=== PATIENT | female | born 1995 | race Caucasian/White ===

== ENCOUNTER 2018-06-05 21:25 | Outpatient (CLI) | payer OTHER, SELFPAY ==
[2018-06-05 22:58] VITALS: BMI 37.3
[2018-06-05 23:20] LABS: ROM Internal Control Test YES-OK TO RESULT pt. (Internal QC)
[2018-06-05 23:21] LABS: ROM Patient Test Negative (Negative)
[2018-06-05 23:49] LABS: Mucous, Urine 0 SEEN /hpf (<or=2+)
[2018-06-06] LABS: Color, Urine Yellow (Yellow); Glucose, Dipstick Normal (Normal); Ketone-Dipstick Negative (Negative); Leukocyte Esterase-Dipstick 100 /ul (Negative); Nitrite-Dipstick Negative (Negative); Occult Blood-Urine Negative /ul (Negative); Protein-Dipstick Negative (Negative); Specific Gravity, Urine 1.015 (1.002-1.030); Urine Bilirubin Dipstick Negative (Negative); Urine Clarity Clear (Clear); Urine Urobilinogen Normal (Normal)
[2018-06-06 00:07] LABS: Squamous Epithelial Cells - UA 0-5 SEEN /hpf (5-10)
[2018-06-06 00:08] LABS: Bacteria 1+ /hpf (None Seen); Red Blood Cells-Urine 0 SEEN /hpf (0-5); White Blood Cells 5-10 SEEN /hpf (0-5)
--- NOTE | 2018-06-06 08:06 | OB.TRI.NOTE ---
History of Present Illness Date of Service: 06/05/18 Was patient seen by the physician?: No Reason For Visit: R/O LABOR Date of Service: 06/05/18 Final CHRISTOPHE: 06/30/18 Gestational age: 36 Weeks and 4 Days Allergies nystatin Allergy (Verified 06/05/18 23:13) Rash NST - FHR Rate Baby A Baseline: 125 Variability:: Moderate Accelerations:: 15 x 15 Decelerations:: None NST Reactive:: Yes FHR Category:: Category I Uterine Activity:: irregular Impression/Plan 22yo @ 36+ wks, not in labor rom plus- negative nst reactive dc home
== END 2018-06-06 00:35 | disposition home or self-care (01) ==
LOC: WPOUT 22:49 → WP 22:50
PROVIDERS: Visit Provider Obstetrics & Gynecology
DX: Z34.93 Encounter for supervision of normal pregnancy, unspecified, third trimester (principal); Z3A.36 36 weeks gestation of pregnancy
CPT/HCPCS: 59025; 59050; 81001; 84112; 99218; G0378

== ENCOUNTER 2018-07-07 19:00 | Inpatient (IN) | payer OTHER, SELFPAY ==
[2018-07-07 19:33] VITALS: BMI 37.5
--- NOTE | 2018-07-07 20:44 | PCM.HP.OB ---
- Problem List (1) Anemia affecting Status: Acute Qualifiers: Trimester: third trimester Qualified Code(s): O99.013 - Anemia complicating , third trimester History Date of Admission: 07/07/18 Final CHRISTOPHE: 06/30/18 Final CHRISTOPHE Source: US <20 weeks Gestational age: 41 Weeks and 0 Days History of this : This is a 22 year-old, G [1], P [0], at 41 weeks gestational age by 1st trimester ultrasound, presenting to L+D for postdates IOL. Patient reports possible beginning of labor yesterday at 6pm; ctx q 10-12 minutes apart and lasting 30 seconds long. Patient denies VB, LOF or DFM. Allergies nystatin Allergy (Mild, Verified 07/07/18 19:34) Rash Home Medications: Home Medications Ferrous Sulfate [Iron] 650 mg PO DAILY 07/07/18 Vits [Prenatabs FA ] 1 tab PO DAILY MDD one 07/07/18 Smoking Status: Never smoker Alcohol: None Number of Fetus(es): 1 Heart Tracing: Baseline 120, moderate variability, + accels, no decels TOCO Analysis: Ctx q 10-15 minutes, irregular History Past Pregnancies: Past Pregnancies Delivery Date Name GA/Weeks Outcome Route Weight Gender Labor Length Anesthesia Delivery Location Provider FOB Labs: O+, Abs Neg, Rubella Immune, HIV NR, HepBsAg Neg, Syphilis Neg, H/H = 10.4/33.2 -->12/37.1, 1 hour = 83 ,GBS Negative, Urine Tox = Neg, Urine culture = Neg, GC/CT = NEg/Neg Expected Delivery Method: Spontaneous Vaginal Describe any other labor & delivery plans:: Epidural desired Number of Visits: 16 Review of Systems Constitutional: Denies: Chills, Fever, Weight Change HEENT: Denies: Head Aches, Sinus Congestion, Sinus Drainage Cardiovascular: Denies: Chest Pain, Palpitations Respiratory: Denies: Cough, Shortness of breath at rest, Sputum production Gastrointestinal: Denies: Abdominal Pain, Nausea, Vomiting Genitourinary: Denies: Dysuria Musculoskeletal: Denies: Joint Pain, Joint Tenderness Skin: Denies: Rash, Wounds Neurological: Denies: Numbness, Tingling, Focal weakness Psychiatric: Denies: Anxiety, Depression, Homicidal Ideations, Suicidal Ideations Hematologic/ Lymphatic: Denies: Easy Bruising, Easy Bleeding Physical Exam Vitals: See nursing notes for vital signs General: Alert, Oriented x3, No apparent distress HEENT: Atraumatic, Normocephalic. Negative for: Thyromegaly, Lymphadenopathy Cardiovascular: Regular rate, Regular Rhythm Abdomen: Non Tender, Gravid, Appropriate for Gestational Age Neurological: Deep Tendon Reflexes 2+/4 and Symmetrical, Neuro grossly intact WEB ASSISTANT: Normal external genitalia. Negative for: Vulvar lesions Estimated gestational size: Appropriate for gestational size Presentation: Cephalic Cervix Dilation (cm): 3 Station: -2 Effacement (%): 60 Assessment/Plan All Active Problems Anemia affecting (Acute) This is a 22 year-old, G [1], P [0], at 41 weeks gestational age, IOL for Postdates, Category I FHT. P: 1) Admit patient - start IV heplock. Draw CBC, T+S. 2) As patient may be in early labor at this time, will do expectant labor management 3) If contractions space out or patient not in labor by morning, anticipate starting IV pitocin for labor induction 4) Dr. Bauer notified of admission and plan of care. Yadira Sue APRN-[facility]
[2018-07-07] MEDS: Lactated Ringers 1,000 ML 50 ML IV (20:50)
--- NOTE | 2018-07-07 20:55 | HP.PCM_ITS ---
- Problem List (1) Anemia affecting Status: Acute Qualifiers: Trimester: third trimester Qualified Code(s): O99.013 - Anemia complicating , third trimester History Date of Admission: 07/07/18 Final CHRISTOPHE: 06/30/18 Final CHRISTOPHE Source: US <20 weeks Gestational age: 41 Weeks and 0 Days History of this : This is a 22 year-old, G [1], P [0], at 41 weeks gestational age by 1st trimester ultrasound, presenting to L+D for postdates IOL. Patient reports possible beginning of labor yesterday at 6pm; ctx q 10-12 minutes apart and lasting 30 seconds long. Patient denies VB, LOF or DFM. Allergies nystatin Allergy (Mild, Verified 07/07/18 19:34) Rash Home Medications: Home Medications Ferrous Sulfate [Iron] 650 mg PO DAILY 07/07/18 Vits [Prenatabs FA ] 1 tab PO DAILY MDD one 07/07/18 Smoking Status: Never smoker Alcohol: None Number of Fetus(es): 1 Heart Tracing: Baseline 120, moderate variability, + accels, no decels TOCO Analysis: Ctx q 10-15 minutes, irregular History Past Pregnancies: Past Pregnancies Delivery Date Name GA/Weeks Outcome Route Weight Gender Labor Length Anesthesia Delivery Location Provider FOB Labs: O+, Abs Neg, Rubella Immune, HIV NR, HepBsAg Neg, Syphilis Neg, H/H = 10.4/ 33.2 -->12/37.1, 1 hour = 83 ,GBS Negative, Urine Tox = Neg, Urine culture = Neg , GC/CT = NEg/Neg Expected Delivery Method: Spontaneous Vaginal Describe any other labor & delivery plans:: Epidural desired Number of Visits: 16 Review of Systems Constitutional: Denies: Chills, Fever, Weight Change HEENT: Denies: Head Aches, Sinus Congestion, Sinus Drainage Cardiovascular: Denies: Chest Pain, Palpitations Respiratory: Denies: Cough, Shortness of breath at rest, Sputum production Gastrointestinal: Denies: Abdominal Pain, Nausea, Vomiting Genitourinary: Denies: Dysuria Musculoskeletal: Denies: Joint Pain, Joint Tenderness Skin: Denies: Rash, Wounds Neurological: Denies: Numbness, Tingling, Focal weakness Psychiatric: Denies: Anxiety, Depression, Homicidal Ideations, Suicidal Ideations Hematologic/ Lymphatic: Denies: Easy Bruising, Easy Bleeding Physical Exam Vitals: See nursing notes for vital signs General: Alert, Oriented x3, No apparent distress HEENT: Atraumatic, Normocephalic. Negative for: Thyromegaly, Lymphadenopathy Cardiovascular: Regular rate, Regular Rhythm Abdomen: Non Tender, Gravid, Appropriate for Gestational Age Neurological: Deep Tendon Reflexes 2+/4 and Symmetrical, Neuro grossly intact MULTIPLE SCLEROSIS NURSE: Normal external genitalia. Negative for: Vulvar lesions Estimated gestational size: Appropriate for gestational size Presentation: Cephalic Cervix Dilation (cm): 3 Station: -2 Effacement (%): 60 Assessment/Plan All Active Problems Anemia affecting (Acute) This is a 22 year-old, G [1], P [0], at 41 weeks gestational age, IOL for Postdates, Category I FHT. P: 1) Admit patient - start IV heplock. Draw CBC, T+S. 2) As patient may be in early labor at this time, will do expectant labor management 3) If contractions space out or patient not in labor by morning, anticipate starting IV pitocin for labor induction 4) Dr. Bauer notified of admission and plan of care. Yadira Sue APRN-[facility]
[2018-07-07 21:25] LABS: Hematocrit 35.3 % (37-47); Hemoglobin 11.7 g/dl (12.0-15.0); Mean Corp Hgb Conc 33.1 g/gl (32-36); Mean Corpuscular Hgb 30.1 pg (27.0-32.0); Mean Corpuscular Volume 90.7 fL (81-99); Mean Platelet Vol. 11.2 fl (6.2-12.0); Platelet Count 197 K/mm3 (150-450); RBC Distribution Width CV 13.4 % (11.6-14.6); Red Blood Count 3.89 M/mm3 (4.2-5.4); White Blood Count 11.5 K/mm3 (4.4-11.0)
[2018-07-07 21:26] LABS: Scan Indicated on CBC? Y/N NO
[2018-07-07] MEDS: Nalbuphine 10 MG/ML Ampul IV (23:02)
[2018-07-08] VITALS (18 sets, daily range): BP systolic 106–125; BP diastolic 52–82; PULSE 61–91; RESP 16–20; TEMP 36.3–36.9; O2SAT 96–100
[2018-07-08] MEDS: Lactated Ringers 1,000 ML 50 ML IV ×3 (01:00→08:40)
[2018-07-08] MEDS: fentaNYL-bupivacaine (epidural) 100 ML BAG EPIDURAL ×3 (01:40→12:06)
[2018-07-08] MEDS: 0.9% Saline Lock 10 ML Syringe IV (02:43)
[2018-07-08] MEDS: Ondansetron 4 MG/2 ML Vial IV (02:43)
[2018-07-08] MEDS: Acetaminophen 325 MG Tablet PO ×2 (03:24→11:19)
[2018-07-08] MEDS: Oxytocin 30 units/NS 500 ml 30 UNITS/500 ML IV.SOLN IV (09:01)
--- NOTE | 2018-07-08 09:02 | PCM.PN.OB ---
Patient Problems: Active and Suspected Problems Anemia affecting (Acute) Subjective: [age] year-old female had intense discomfort to the point where she was unable to rest. She received an epidural over night. Patient reports that she is comfortable and has been able to rest. Nursing staff requested cervical reassessment and placement of internal monitors. Objective: tracing has baseline 120 with moderate variability and accelerations present with rare variable dec at fadumo 90. Internal monitor shows patient has irregular contractions every 3-7 minutes, 50 MVU. SVE = 6/80/-2, AROM for scant clear fluid. - Physical Exam Weight: 239 lb 10.279 oz Body Mass Index (BMI) 37.5 Intake and Output for Last 24 Hours 07/06/18 07/07/18 07/08/18 23:59 23:59 23:59 Intake Total 1190 / 1190 Output Total 800 / 800 Balance 390 / 390 Laboratory Tests Past 24 Hrs 07/07/18 07/07/18 20:50 20:50 WBC 11.5 H RBC 3.89 L Hgb 11.7 L Hct 35.3 L MCV 90.7 MCH 30.1 MCHC 33.1 RDW 13.4 RDW Differential 44.0 H Plt Count 197 MPV 11.2 Blood Type O POSITIVE Antibody Screen NEGATIVE Medical Necessity - Tobacco Use Smoking Status: Never smoker Assessment/Plan All Active Problems Anemia affecting (Acute) Assessment: 22 year-old at 41+1 weeks in active labor, Category II tracing. Inadequate contractions. Plan: Start IV pitocin per protocol for labor augmentation. Encourage position changes and PO hydration. Reassess cervix PRN with changes to maternal or status.
[2018-07-08] MEDS: Amnioinfusion- 0.9% NS 1,000 ML IV.SOLN. INTRA-UTER (10:04)
--- NOTE | 2018-07-08 10:21 | PCM.PN.BLA ---
Progress Note Addendum: Repetitive variable decels noted during contractions, decision made to start amnioinfusion at this time. Bolus rate of 300ml/hr over 30 minutes with maintenance rate of 100ml/hr. Cat II FHT with mild variable decels noted currently, ctx q 2-4 minutes, 180 MVU. SVE deferred. Will continue to monitor patient at this time. Yadira ELI
--- NOTE | 2018-07-08 13:08 | PCM.PN.BLA ---
Progress Note Addendum: prolonged decel with fadumo to 70-80s x 2 minutes noted, SVE done and patient found to be 8/90/-1 to 0 station. Slow recovery to baseline, Dr. Bauer contacted to come to room on standby. REview of tracing done with Dr. Bauer, decision for LTCS made. Risks reviewed with patient - transfer of care to medical management for LTCS. Yadira ELI
[2018-07-08] MEDS: Sodium Citrate/Citric Acid 30 ML UDC PO (13:10)
[2018-07-08] MEDS: Cefazolin 2 GM in 0.9% Normal Saline 100 ML IV (13:10)
[2018-07-08] MEDS: Oxytocin 30 units/NS 500 ml 30 UNITS/500 ML IV.SOLN 167 UNITS IV (13:36)
--- NOTE | 2018-07-08 14:48 | PCM.PN.BLA ---
Progress Note Called by core measures abstractor after prolonged deceleration. FHT prior to arriving with deceleration to 90 bpm for about 10 min. At bedside. Pitocin off. Position changes being performed. Cvx 8-9/80/-2. FHT had returned to a normal baseline followed by decelerations to 70 bpm. Reviewed risks and benefits of a PLTCS with patient for intolerance to labor. Patient agreeable to a section. Consent obtained and patient moved back to OR.
--- NOTE | 2018-07-08 14:52 | PCM.OP.BLANK ---
Problem List (1) intolerance to labor, delivered, current hospitalization Status: Acute Operative Report Date of Procedure: 07/08/18 Preoperative diagnosis: 1 term intrauterine , 2 intolerance to labor Postoperative diagnosis: as above Procedure performed: primary low transverse section Via Pfannenstiel incision Anesthesia: epidural Estimated blood loss: 700 cc Urine output: 300 cc of clear yellow urine Complications: none Findings: male infant in cephalic presentation. Normal uterus, tubes, and ovaries Indications the patient is a 22-year-old who presented at 41 weeks and 0 days gestation in active labor. She was having occasional variable decelerations throughout labor, but making progress. Internal monitors were placed and amnioinfusion was started. She progressed to 8-9 cm. The heart tracing then began showing recurrent prolonged decelerations. Risks, benefits, and alternatives of a for intolerance to labor was discussed with the patient. The patient was agreeable to a section. Procedure note: the patient was taken to the operating room where epidural anesthesia was found to be adequate. The patient was prepped and draped in the usual sterile fashion in dorsal supine position with a leftward tilt. Pfannenstiel skin incision was made with the scalpel and carried through to the underlying layer fascia using the Bovie. The fascia was incised in the midline and extended laterally using Chris scissors. Raulito clamps were used to elevate the superior aspect of the fascial incision, and the underlying rectus muscles were dissected off bluntly and using Chris scissors, as well as the Bovie. Attention was then turned to the inferior aspect of the fascial incision, which in similar fashion was grasped with Raulito clamps and elevated. Then the underlying rectus muscles were dissected off bluntly and using Chris scissors. The rectus muscles were in the midline. The peritoneum was identified and entered using Metzenbaum scissors. The incision was extended superiorly and inferiorly with good visualization of the bladder. The bladder blade was inserted the lower uterine segment was incised in a transverse fashion using a scalpel and extended bluntly. The was noted to be in vertex position and delivered without difficulty. The cord was clamped and cut after 60 seconds and the infant was handed off. The placenta was delivered with manual extraction and intact. The uterus was exteriorized and cleared of all clot and debris. The uterine incision was repaired in 2 layers using Vicryl. Hemostasis was noted. The uterus was then placed back in the abdomen. Hemostasis was again noted, and Arrista was placed over the uterine incision. The peritoneum was reapproximated in the midline using Vicryl. The fascia was closed with Vicryl. The subcutaneous layer was closed with Vicryl. The skin was closed in subcuticular fashion. Sponge, lap, instrument, needle counts were correct ?2. The patient was stable at the completion of the procedure and was taken to the recovery room in stable condition.
--- NOTE | 2018-07-08 15:05 | NURSING ---
small clot noted with fundal massage
[2018-07-08] MEDS: Ketorolac 30 MG/ML Syringe IV (18:18)
[2018-07-08] MEDS: Lactated Ringers 1,000 ML 100 ML IV (22:00)
[2018-07-09] VITALS (11 sets, daily range): BP systolic 109–132; BP diastolic 50–72; PULSE 68–99; RESP 16–18; TEMP 36.6–37.2; O2SAT 95–100
[2018-07-09] MEDS: Ketorolac 30 MG/ML Syringe IV ×5 (00:35→23:55)
[2018-07-09] MEDS: Lactated Ringers 1,000 ML 100 ML IV (06:19)
[2018-07-09 07:05] LABS: Hematocrit 32.2 % (37-47); Hemoglobin 10.7 g/dl (12.0-15.0); Mean Corp Hgb Conc 33.2 g/gl (32-36); Mean Corpuscular Hgb 30.8 pg (27.0-32.0); Mean Corpuscular Volume 92.8 fL (81-99); Mean Platelet Vol. 11.8 fl (6.2-12.0); Platelet Count 195 K/mm3 (150-450); RBC Distribution Width CV 13.1 % (11.6-14.6); RBC Distribution Width SD 43.3 fl (35.1-43.9); Red Blood Count 3.47 M/mm3 (4.2-5.4); White Blood Count 18.8 K/mm3 (4.4-11.0)
[2018-07-09 07:09] LABS: Scan Indicated on CBC? Y/N NO
--- NOTE | 2018-07-09 10:42 | PCM.PN.OB ---
Patient Problems: Active and Suspected Problems Anemia affecting (Acute) intolerance to labor, delivered, current hospitalization (Acute) Subjective: [age] year-old female LTCS post-op day 1. Patient was awake and attending to baby. Patient did not have any complaints or concerns. Minimal incision pain. Able to eat full breakfast w/o n/v. Patient able to pass gas; no signs of constipation. Objective: A+Ox3. NAD. Incision site was inspected; no signs of infection, discoloration, discharge, or foul odor. Minimal abdominal tenderness. Urinary elena catheter to be removed today. Breast inspection deferred- patient is formula feeding. - Physical Exam General: Alert, Oriented x3, Cooperative, No apparent distress Abdomen: Soft, Non Tender, Non-Distended Neurological: Neuro grossly intact Psych/Mental Status: Normal Affect Vital Signs Temp Pulse Resp BP Pulse Ox 98.3 F 96 16 109/62 98 07/09/18 08:15 07/09/18 09:57 07/09/18 09:57 07/09/18 08:15 07/09/18 09:57 Oxygen Delivery Method Room Air Weight: 239 lb 10.279 oz Body Mass Index (BMI) 37.5 Intake and Output for Last 24 Hours 07/07/18 07/08/18 07/09/18 23:59 23:59 23:59 Intake Total 6245 / 6245 1740 / 1740 Output Total 4200 / 4200 2850 / 2850 Balance 2045 / 2045 -1110 / -1110 Laboratory Tests Past 24 Hrs 07/09/18 06:25 WBC 18.8 H RBC 3.47 L Hgb 10.7 L Hct 32.2 L MCV 92.8 MCH 30.8 MCHC 33.2 RDW 13.1 RDW Differential 43.3 Plt Count 195 MPV 11.8 Medical Necessity - Tobacco Use Smoking Status: Never smoker Assessment/Plan All Active Problems Anemia affecting (Acute) intolerance to labor, delivered, current hospitalization (Acute) Assessment: [age] year-old post-op day 1. Normal post- course. Plan: 1) Continue post- orders 2) Expected to be discharged on 07/11/18
[2018-07-09] MEDS: 0.9% Saline Lock 10 ML Syringe IV ×4 (13:03→23:55)
[2018-07-10 02:20] VITALS: BP 125/70; PULSE 66; RESP 16; TEMP 36.6; O2SAT 95
[2018-07-10] MEDS: Ketorolac 30 MG/ML Syringe IV ×2 (06:24→12:45)
[2018-07-10] MEDS: 0.9% Saline Lock 10 ML Syringe IV ×2 (06:25→12:45)
[2018-07-10] MEDS: Acetaminophen 500 MG Tablet 1000 MG PO (06:29)
[2018-07-10 08:00] VITALS: BP 126/71; PULSE 82; RESP 18; TEMP 36.6; O2SAT 97
--- NOTE | 2018-07-10 08:00 | PCM.PN.OB ---
Patient Problems: Active and Suspected Problems Anemia affecting (Acute) intolerance to labor, delivered, current hospitalization (Acute) Subjective: Patient doing well today. Without any complaints. Has been ambulating throughout the halls without any difficulties. Spontaneously voiding without any difficulty. Normal lochia. Passing flatus. Tolerating regular diet without nausea and vomiting. Denies fevers, lightheadedness, chest pain, shortness of breath, leg pain. She feels ready to go home today. - Physical Exam General: Alert, Oriented x3 HEENT: Atraumatic Lungs: Normal air movement Abdomen: Soft, Non-Distended, - - ATTP, silver dressing in place and clean without surrounding erythema, FF@U Extremities: No Calf Tenderness Skin: No rashes Neurological: Neuro grossly intact Psych/Mental Status: Normal Affect Vital Signs Temp Pulse Resp BP Pulse Ox 97.8 F 66 16 125/70 H 95 07/10/18 02:20 07/10/18 02:20 07/10/18 02:20 07/10/18 02:20 07/10/18 02:20 Oxygen Delivery Method Room Air Weight: 239 lb 10.279 oz Body Mass Index (BMI) 37.5 Intake and Output for Last 24 Hours 07/08/18 07/09/18 07/10/18 23:59 23:59 23:59 Intake Total 6245 / 6245 2240 / 2240 Output Total 4200 / 4200 4150 / 4150 Balance 2044 / 2044 -1909 / -191 Medical Necessity - Tobacco Use Smoking Status: Never smoker Assessment/Plan All Active Problems Anemia affecting (Acute) intolerance to labor, delivered, current hospitalization (Acute) Patient is postoperative day #2 status post primary low transverse section for intolerance to labor. The patient is doing well and without any complaints. She is afebrile and vital signs are stable. Pain is well controlled. She is meeting all milestones to go home, and she feels ready to go home today. Reviewed discharge instructions with patient, and discussed follow-up and return precautions.
--- NOTE | 2018-07-10 08:03 | PCM.DCCSEC ---
Discharge Diet: No Restrictions Discharge Activity: May not drive while taking narcotic pain medications., May Shower May resume sexual activity in: 6 weeks Lifting Restrictions: No heavy lifting greater than 20 lbs Call your doctor if your incision/area has: Increased Pain/ Swelling, Increased Redness, Foul Smelling Discharge, Swelling at the incision site Call your doctor if you observe: Fever of 101 or Higher, Inability to urinate, Inability to have a bowel movement, Using more than one pad per hour, Shortness of breath, Dizziness, Chest pain, Calf discomfort, Uncontrolled pain Remove Dressing in (days):: 7 Additional Instructions: If you experience any of the following, contact your healthcare provider. Bleeding that soaks a pad every hour for 2 hours Fever 100.4 or higher Unrelieved incision or abdominal pain Swelling, redness, discharge or bleeding from your incision or episiotomy site Your incision begins to separate Problems urinating (including inability to urinate or burning while urinating). Visual changes Severe headache Flu-like symptoms Pain or redness in one of both of your breasts Pain, warmth, tenderness or swelling in your legs, especially the calf area Frequent nausea and vomiting Symptoms of depression or anxiety If you experience any of the following, call 911 or go to the nearest Emergency Room. Chest pain Problems breathing Seizure activity Partial or complete paralysis of a body part, slurred speech, weakness or drooping of the face, or a sudden inability to walk or hold your balance Allergies/Adverse Reactions: Allergies nystatin Allergy (Mild, Verified 07/07/18 19:34) Rash latex Allergy (Verified 07/08/18 03:26) Rash Medications to take at Discharge Ferrous Sulfate [Iron] 650 mg PO DAILY 07/07/18 Vits [Prenatabs FA ] 1 tab PO DAILY MDD one 07/07/18 Follow-Up: Call to make an appointment with your doctor for an incision check in 1 week. You will also need a 6 week post- follow up appointment. Test results from this visit will be discussed in further detail at your follow-up appointment, if applicable. Primary Care Physician: Hubert Mcgregor,Out of [Primary Care Provider] - Proposed Discharge Date: 07/10/18
--- NOTE | 2018-07-10 08:23 | NURSING ---
Patient called me into bathroom to show me a clot on her pad that was the size of a golf ball. She denies cramping or excessive bleeding. She had been laying in bed and then got up to change a diaper when the clot came out. Dr. Bauer notified. No new orders. Patient instructed to call office if she notices clots this size or larger at home.
--- NOTE | 2018-07-10 11:59 | NURSING ---
Patient states she no longer plans to pump breastmilk, she will be formula-feeding at home due to ease of use for her.
[2018-07-10 12:51] VITALS: BP 122/63; PULSE 86; RESP 18; TEMP 36.7; O2SAT 99
--- NOTE | 2018-07-14 13:47 | PCM.DC.BLA ---
Discharge Summary Date of Admission: 07/07/18 Date of Discharge: 07/10/18 Summary: Patient is a 23 y/o who presented at 41w0d in active labor. Progressed to 8-9 cm dilated. Had a PLTCS for intolerance to labor. course was uncomplicated. Discharged home on post-op day #2 in good condition. She was tolerating a regular diet, voiding, ambulating without difficulty, and pain was well controlled. She was undecided on control.
--- NOTE | 2018-07-14 13:52 | DS.PCM_ITS ---
Discharge Summary Date of Admission: 07/07/18 Date of Discharge: 07/10/18 Summary: Patient is a 23 y/o who presented at 41w0d in active labor. Progressed to 8 -9 cm dilated. Had a PLTCS for intolerance to labor. course was uncomplicated. Discharged home on post-op day #2 in good condition. She was tolerating a regular diet, voiding, ambulating without difficulty, and pain was well controlled. She was undecided on control.
== END 2018-07-10 13:45 | disposition home or self-care (01) | DRG 766 ==
PROVIDERS: Obstetrics & Gynecology; Admitting Provider Obstetrics & Gynecology; Visit Provider Obstetrics & Gynecology
DX: O48.0 Post-term pregnancy (principal); O77.9 Labor and delivery complicated by fetal stress, unspecified; O99.02 Anemia complicating childbirth; D64.9 Anemia, unspecified; Z79.899 Other long term (current) drug therapy; Z3A.41 41 weeks gestation of pregnancy; Z37.0 Single live birth
CPT/HCPCS: 59025; 59050; 85027; 86850; 86900; 99218; J7030; J7120; A4216; G0378; J2405; J3490

== ENCOUNTER 2025-04-18 19:45 | Emergency (ER) | payer BC, SELFPAY ==
[2025-04-18 19:46] VITALS: BP 134/75; PULSE 84; RESP 15; TEMP 36.4; O2SAT 100; BMI 29.7
--- NOTE | 2025-04-18 20:04 | ED.VIS.FEGU ---
HPI <ASHLI Espinoza - Last Filed: 04/19/25 12:19> HPI - Female History of Present Illness Chief Complaint: Vag Bld, Preg Narrative Narrative: 29-year-old female states she is approximately 6 weeks female had a positive home test. Yesterday after wiping she noticed a small amount of blood. This morning she used a thin panty liner and has had a very small amount of bleeding. No clots. No abdominal pain or cramping. She has had nausea in the first trimester but no vomiting. No fever or chills. She is G4 A1 P2. She states her prior births were here in [place] but she recently moved to [place] and has an [facility] there with a first appointment May 06 but she is currently here visiting family. PFSH <ASHLI Espinoza - Last Filed: 04/19/25 12:19> [facility] Medical History (Updated 04/19/25 @ 12:19 by ASHLI Espinoza) delivery delivered Home Medications ?Medication ?Instructions ?Recorded ?Last Taken ?Type vits,calcium no.78-iron 1 tab PO DAILY 07/07/18 07/07/18 History fumarate-folic acid 29 mg-1 mg n tablet (Prenatabs FA) cephalexin 500 mg capsule 500 mg PO Q6H 7 days #28 caps 04/19/25 Unknown Rx Allergy/AdvReac Type Severity Reaction Status Date / Time nystatin Allergy Mild Rash Verified 04/18/25 19:45 latex Allergy Rash Verified 04/18/25 19:45 Surgical History (Updated 04/18/25 @ 19:49 by Rajani Conteh) History of tonsillectomy and adenoidectomy Social History Smoking Status: Never smoker ROS <ASHLI Espinoza - Last Filed: 04/19/25 12:19> ROS ED ROS Narrative Constitutional: Negative for fever, chills, malaise. GI: Negative for abdominal pain, nausea, vomiting, diarrhea, constipation, melena, hematochezia. : Negative for dysuria, hematuria or frequency. EXAM <ASHLI Espinoza - Last Filed: 04/19/25 12:19> Physical Exam Narrative Exam Narrative: CONST: Patient sitting in no acute distress. EYES: Normal inspection. NECK: Normal inspection. RESP: No respiratory distress, CTAB. CVS: Regular rate and rhythm, no murmur, no gallop. ABD: Soft and nontender, no guarding or rebound, nondistended. SKIN: Color normal, no rash, warm, dry, intact. EXTREMITIES: Normal appearance, no pedal edema. NEURO: Alert and answering questions appropriately. PSYCH: Normal affect. Const Vital Signs: 04/18/25 19:46 04/18/25 21:45 04/18/25 23:00 Temperature 97.5 F L Temperature Source Temporal Pulse Rate 84 62 55 L Respiratory Rate 15 16 16 Blood Pressure 134/75 H 113/56 L 120/76 Blood Pressure Mean 94 75 90 Pulse Ox 100 100 98 Oxygen Delivery Method Room Air Room Air Room Air 04/18/25 23:42 Temperature 97.6 F L Temperature Source Pulse Rate 68 Respiratory Rate 16 Blood Pressure 117/77 Blood Pressure Mean 90 Pulse Ox 100 Oxygen Delivery Method <Dr. Chadwick Arredondo DO - Last Filed: 04/19/25 02:50> Physical Exam Const Vital Signs: 04/18/25 19:46 04/18/25 21:45 04/18/25 23:00 Temperature 97.5 F L Temperature Source Temporal Pulse Rate 84 62 55 L Respiratory Rate 15 16 16 Blood Pressure 134/75 H 113/56 L 120/76 Blood Pressure Mean 94 75 90 Pulse Ox 100 100 98 Oxygen Delivery Method Room Air Room Air Room Air 04/18/25 23:42 Temperature 97.6 F L Temperature Source Pulse Rate 68 Respiratory Rate 16 Blood Pressure 117/77 Blood Pressure Mean 90 Pulse Ox 100 Oxygen Delivery Method MDM <ASHLI Espinoza - Last Filed: 04/19/25 12:19> [facility] Narrative Medical decision making narrative: History gathered from: Patient and mom Differential includes but not limited to threatened miscarriage, complete miscarriage, chorionic hemorrhage, UTI 29-year-old female G4 A2 P1 is approximately 6 weeks and has had 2 days of light vaginal bleeding. She has no abdominal pain. She appears well and nontoxic and is hemodynamically stable. Abdomen soft and nontender. Pelvic exam shows closed cervical os with no signs of hemorrhage. Hemoglobin is 12.1. hCG quant is 163 which is lower than expected from her reported last menstrual period. Urinalysis looks consistent with UTI so she will be treated with Keflex. Ultrasound shows no IUP which could be too early to detect, however, left adnexa has moderate fluid raising the possibility of ectopic . I will discuss with on-call [facility]. Lab Data Attestation: I reviewed the patient's lab results. Labs: Laboratory Results - last 24 hr 04/18/25 04/18/25 20:05 20:14 WBC 7.7 RBC 4.07 L Hgb 12.1 Hct 36.3 L MCV 89.2 MCH 29.7 MCHC 33.3 RDW Std Deviation 39.3 RDW Coeff of Erlin 12.0 Plt Count 253 MPV 10.0 Immature Gran % (Auto) 0.400 Neut % (Auto) 50.4 Lymph % (Auto) 39.3 [place] % (Auto) 7.5 Eos % (Auto) 1.7 Baso % (Auto) 0.7 Absolute Neuts (auto) 3.9 Absolute Lymphs (auto) 3.02 Nucleated RBC % 0 HCG, Quant 163 H Urine Color Straw Urine Clarity Clear Urine pH 6.5 Ur Specific [place] 1.010 Urine Protein Negative Urine Glucose (UA) Normal Urine Ketones Negative Urine Occult Blood 250 H Urine Nitrite Negative Urine Bilirubin Negative Urine Urobilinogen Normal Ur Leukocyte Esterase 25 H Urine RBC 10-25 SEEN Urine WBC 5-10 SEEN Ur Squamous Epith Cells 0-5 SEEN Urine Bacteria 1+ Urine Mucus 0 SEEN Radiography Diagnostic Testing: Clinical Impression(s) from Imaging Studies Obstetrics Ultrasound 04/18/25 20:09 IMPRESSION: No IUP detected at this time. Presence of adnexal findings raises the likelihood of ectopic . Reading Location: [facility] <Dr. Chadwick Arredondo, DO - Last Filed: 04/19/25 02:50> [facility] MDM Narrative Medical decision making narrative: History gathered from: Patient and mom Differential includes but not limited to threatened miscarriage, complete miscarriage, chorionic hemorrhage, UTI 29-year-old female G4 A2 P1 is approximately 6 weeks and has had 2 days of light vaginal bleeding. She has no abdominal pain. She appears well and nontoxic and is hemodynamically stable. Abdomen soft and nontender. Pelvic exam shows closed cervical os with no signs of hemorrhage. Hemoglobin is 12.1. hCG quant is 163 which is lower than expected from her reported last menstrual period. Urinalysis looks consistent with UTI so she will be treated with Keflex. Ultrasound shows no IUP which could be too early to detect, however, left adnexa has moderate fluid raising the possibility of ectopic . I will discuss with on-call [facility]. Supervisory Physician Note Patient was seen and examined with the Advanced Practice Provider. Nursing notes and vital signs have been reviewed. Pertinent old records have been reviewed. I agree with the essential elements of the CHILO's history, physical exam, assessment, and plan. The differential diagnosis and management options were discussed with the CHILO. I participated in determining and agree with the management, procedures, final impression and disposition as documented. See changes noted by me. Please see addendum or separate note for any additional details. 29-year-old female who is G4, P2, A1 and 6-week presents for evaluation of vaginal GI bleeding. Patient is currently visiting from out of town. Has yet to follow-up with her [facility] for this . Endorses intermittent vaginal bleeding since yesterday. Denies any abdominal pain. Denies any fever, chills, vomiting, dysuria. Gen: A&O x3, NAD Head: Normocephalic, atraumatic Eyes: No sclera icterus, conjunctiva clear ENT: Moist mucous membranes CV: RRR, no murmurs, no peripheral edema Resp: Lungs CTA BL, no w/r/c GI: Abd soft, non-distended, non-tender, no r/r/g : No CVA tenderness Pelvic: Normal external genitalia. No lesions, masses, or rashes appreciated. Active vaginal bleeding, no discharge. Cervix is non-friable and os is closed. Musc: Full ROM, no deformity Skin: Warm, dry Neuro: Alert, oriented, grossly intact, sensation intact Psych: Cooperative, appropriate mood and affect Differential diagnosis includes but is not limited to complete , threatened , ectopic , UTI, chorionic hemorrhage, early bleeding in , anemia. CBC without leukocytosis or anemia. Beta-hCG is 163, this is lower than expected for 6 weeks of . UA is positive for UTI. Urine culture sent. Patient will be placed on Keflex. Pelvic ultrasound shows no IUP. Cervix is closed. She has moderate fluid seen in the left adnexa, possible ectopic . On reexamination, patient is still denying abdominal pain. [facility] on-call was consulted and I spoke with Dr. Hawkins. Plan is to call the office tomorrow for a follow-up appointment. Agrees with beta-hCG repeat in 48 hours. Prescription written. Patient and family updated of all the results and confirmed understanding. Strict return precautions were explained. Patient stable to discharge home. Keflex prescription was forgotten on discharge. The antibiotic was written and sent to the pharmacy. 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 Impression: 1. Miscarriage, likely complete 2. UTI Lab Data Labs: Laboratory Results - last 24 hr 04/18/25 04/18/25 20:05 20:14 WBC 7.7 RBC 4.07 L Hgb 12.1 Hct 36.3 L MCV 89.2 MCH 29.7 MCHC 33.3 RDW Std Deviation 39.3 RDW Coeff of Erlin 12.0 Plt Count 253 MPV 10.0 Immature Gran % (Auto) 0.400 Neut % (Auto) 50.4 Lymph % (Auto) 39.3 [place] % (Auto) 7.5 Eos % (Auto) 1.7 Baso % (Auto) 0.7 Absolute Neuts (auto) 3.9 Absolute Lymphs (auto) 3.02 Nucleated RBC % 0 HCG, Quant 163 H Urine Color Straw Urine Clarity Clear Urine pH 6.5 Ur Specific [place] 1.010 Urine Protein Negative Urine Glucose (UA) Normal Urine Ketones Negative Urine Occult Blood 250 H Urine Nitrite Negative Urine Bilirubin Negative Urine Urobilinogen Normal Ur Leukocyte Esterase 25 H Urine RBC 10-25 SEEN Urine WBC 5-10 SEEN Ur Squamous Epith Cells 0-5 SEEN Urine Bacteria 1+ Urine Mucus 0 SEEN Radiography Diagnostic Testing: Clinical Impression(s) from Imaging Studies Obstetrics Ultrasound 04/18/25 20:09 IMPRESSION: No IUP detected at this time. Presence of adnexal findings raises the likelihood of ectopic . Reading [facility] Discharge Plan Triage Chief Complaint: Vag Bld, Preg ED Midlevel Provider: Yuko Alegria ED Provider: Chadwick Arredondo Dx/Rx/DC Orders Clinical Impression: Miscarriage, UTI (urinary tract infection) Instructions: Miscarriage Dc Prescriptions: New cephalexin 500 mg capsule 500 mg PO Q6H 7 Days Qty: 28 0RF No Action Prenatabs FA 1 TABLET tablet 1 tab PO DAILY MDD one Other Ambulatory Orders: HCG BETA-SUBUNIT QUANT. (Routine) Timeframe: 2 Days Facility: [facility] - Location: Laboratory Ordered By: Yuko Alegria Primary Care Provider: EMELY ZAMUDIO Referrals: Yovany Hawkins MD [Med Staff - Active Staff] - As soon as possible Activity Restrictions/Additional Instructions: You need to return back to the ED if symptoms worsen such as worsening vaginal bleeding, abdominal pain, nausea, vomiting. You need to get your hCG repeated in 2 days. You need to call the [facility] office tomorrow to make an appointment. Print Language: Guyanese Disposition Disposition: Home, Self Care Discharge Date/Time: 04/18/25 23:45
--- NOTE | 2025-04-18 20:09 | US_ITS ---
PROCEDURE: TRANSVAGINAL W/PREG US 04/18/2025 REASON FOR EXAM: PAIN 1st trimester bleeding. TECHNIQUE: TRANSVAGINAL W/PREG US COMPARISON: No relevant comparisons FINDINGS No intrauterine fetus identified. No yolk sac identified. No heart tones are detected. Estimated gestational age by LMP: 5 weeks, 6 days estimated due date by LMP: December 13, 2025. MATERNAL ANATOMY: Adnexa: Right ovary is not visualized due to overlying bowel gas. Left ovary is visualized and measures 3.5 cm x 2.5 cm x 1.8 cm. Possible corpus luteum cyst. The uterus measures 6.9 cm L by 5.4 cm AP x 4.5 cm T. No fibroids identified. Cervix is closed. Incidental note of nabothian cysts in the cervix. Moderate fluid is seen in the left adnexa. It seems possible that there is a too early to detect. However when there is no intrauterine and there are findings in the adnexa prospect of a possible ectopic pregnancies rise to 50-75% probability US/Transvaginal w/Preg US IMPRESSION: No IUP detected at this time. Presence of adnexal findings raises the likelihood of ectopic . Reading [facility]
[2025-04-18 20:14] LABS: Absolute Lymphocyte Count 3.02 X10^3/uL (0.83-4.51); Absolute Neutrophil Count 3.9 X10^3/uL (2.0-7.7); Basophil# 0.05 X10^3/uL; Basophil% 0.7 % (0-1); Eosinophil# 0.13 X10^3/uL; Eosinophils% 1.7 % (0-5); Hematocrit 36.3 % (37-47); Hemoglobin 12.1 g/dL (12.0-15.0); Lymphocyte # 3.02 X10^3/ul (0.83-4.51); Lymphocyte % 39.3 % (19-41); Mean Corp Hgb Conc 33.3 g/dL (32-36); Mean Corpuscular Hgb 29.7 pg (27.0-32.0); Mean Corpuscular Volume 89.2 fL (81-99); Monocyte# 0.58 X10^3/uL; Monocyte% 7.5 % (0-10); NRBC Flagged by Analyzer 0 % (0-5); Neutrophil # 3.88 X10^3/uL (2.7-7.7); Neutrophil % 50.4 % (47-70); Platelet Count 253 K/mm3 (150-450); RBC Distribution Width SD 39.3 fl (35.1-43.9); Red Blood Count 4.07 M/mm3 (4.2-5.4); White Blood Count 7.7 K/mm3 (4.4-11.0)
[2025-04-18 20:19] LABS: Mucous, Urine 0 SEEN /hpf (<or=2+)
--- OUTSIDE RECORDS SUMMARY | 2025-04-18 20:32 | XMS RPT_ITS | CCD ---
Author Organization [facility] CliniSyms Care Team Providers Care Machine Featheredger And Reducer Name Role Phone Unavailable Unavailable Unavailable Fontanez, Latoya Unavailable Unavailable Fontanez, Latoya Unavailable Unavailable Fontanez, Latoya Unavailable Unavailable Fontanez, Latoya Unavailable Unavailable Fontanez, Latoya Unavailable Unavailable Fontanez, Latoya Unavailable Unavailable Fontanez, Latoya Unavailable Unavailable Fontanez, Latoya Unavailable Unavailable SASHA DEVINE Unavailable Unavailable Wiswell, Jarrett Unavailable Unavailable Wiswell, Jarrett Unavailable Unavailable Wiswell, Jarrett Unavailable Unavailable Neyhart-Caldwell, Hyun Unavailable Unavail able SASHA DEVINE Unavailable Unavailable JOHN, MONSE L Unavailable Unavailable JOHN, MONSE L Unavailable Unavailable ALAN JACOBSEN Unavailable Unavailable JOHN, MONSE L Unavailable Unavailable NEYHART CALDWELL, HYUN Unavailable Unavail able JOHN, MONSE L Unavailable Unavailable NEYHART CALDWELL, HYUN Unavailable Unavail able NEYHART CALDWELL, HYUN Unavailable Unavail able NEYHART CALDWELL, HYUN Unavailable Unavail able JOHN, MONSE L Unavailable Unavailable BLAYNE KATE Unavailable Unavailable NEYHART CALDWELL, HYUN Unavailable Unavail able JOHN, MONSE L Unavailable Unavailable RODRIGUEZ, ANGELINE (CNM) Unavailable Unavailable NEYHART CALDWELL, HYUN Unavailable Unavail able NEYHART CALDWELL, HYUN Unavailable Unavail able NEYHART CALDWELL, HYUN Unavailable Unavail able FERNANDA, VANDANA (CNM) Unavailable Unavailable FERNANDA, VANDANA (CNM) Unavailable Unavailable RODRIGUEZ, ANGELINE (CNM) Unavailable Unavailable JOHN, MONSE L Unavailable Unavailable JUSTINE BELCHER Unavailable Unavailable RODRIGUEZ, ANGELINE (CNM) Unavailable Unavailable RODRIGUEZ, ANGELINE (CNM) Unavailable Unavailable JOHN, MONSE L Unavailable Unavailable WISWELL, JARRETT Unavailable Unavailable WISWELL, JARRETT Unavailable Unavailable WISWELL, JARRETT Unavailable Unavailable WISWELL, JARRETT Unavailable Unavailable FERNANDA, VANDANA (CNM) Unavailable Unavailable WISWELL, JARRETT Unavailable Unavailable FERNANDA, VANDANA (CNM) Unavailable Unavailable FERNANDA, VANDANA (CNM) Unavailable Unavailable FERNANDA, VANDANA (CNM) Unavailable Unavailable FERNANDA, VANDANA (CNM) Unavailable Unavailable FERNANDA, VANDANA (CNM) Unavailable Unavailable Kymberly Owen Unavailable Unavailable Primary Care Provider Unavailabl e Kymberly Wray Primary Care Provider Kymberly Wray Primary Care Provider [phone] Yareli Murray Primary Care Provider [phone] Garbadawala, Michael S. Primary Care Provider KYMBERLY OWEN Attending Unavailable KYMBERLY OWEN Primary Care Unavailable KYMBERLY OWEN Attending Unavailable KYMBERLY OWEN Primary Care Unavailable DELILAH CARBALLO Attending Unavail able GARBADAWALA, MICHAEL S. Primary Care Unavaila ble GARBADAWALA, MICHAEL S. Admitting Unavaila ble DELILAH CARBALLO Attending Unavail able GARBADAWALA, MICHAEL S. Referring Unavaila ble GARBADAWALA, MICHAEL S. Primary Care Unavaila ble FLARIMAGUI HAYES Referring Unavailable GARBADAWALA, MICHAEL S. Primary Care Unavaila ble FLARIDAMAGUI JUAN Admitting Unavailable GARBADAWALA, MICHAEL S. Primary Care Unavaila ble GAEL MAHERETTE Admitting Unavailable NIKA, CARISA Referring Unavailable KESSLER, THOMAS LINDSAY Admitting Unavailabl e KESSLER, THOMAS LINDSAY Referring Unavailabl e GARBADAWALA, MICHAEL S. Primary Care Unavaila ble Garbadawala, Michael S. Primary Care Provider ALONA PRITCHETT Admitting Unavailabl e ALONA PRITCHETT Attending Unavailabl e GARBADAWALA, MICHAEL S. Primary Care Unavaila ble KELLY MAYFIELD Consulting Unavailable GARBADAWALA, MICHAEL S. Admitting Unavaila ble GARBADAWALA, MICHAEL S. Primary Care Unavaila ble GARBADAWALA, MICHAEL S. Primary Care Unavaila tiera DENISKATHARINE NARGIS Attending Unavailable MARIBEL LIN Attending Unavailable MARIBEL LIN Referring Unavailable YARELI MURRAY Primary Care Unavailable Ash PETTIT, Fernanda Primary Care Provider ANGELINE PERERA Attending Unavailable GARBADAWAGILLIAN, MICHAEL Primary Care Unavailable SELF, SELF Referring Unavailable MAURA LOPEZ Attending Unavailable ASH, MICHAEL Primary Care Unavailable ASH, MICHAEL S. Primary Care Unavaila LAZARUS Pina Attending Unavailable Allergies Allergy Classification Reported Allergen(s) Allergy Type Date of Onset Reaction(s) Facility (6 sources) Latex; Translations: [LATEX] Drug allergy (disorder) 8 [facility] Repository (8 sources) nystatin; Translations: [NYSTATIN] Drug Allergy 6 [facility] Repository (17 sources) Nystatin Drug Allergy 6 [facility] (20 sources) cow milk allergenic extract; Translations: [MILK] Drug Allergy 9 GI Intolerance [facility] (10 sources) Latex Propensity to adverse reactions to drug 8 [facility] (1 source) Latex Propensity to adverse reactions to drug 8 [facility] (1 source) Nystatin Drug Allergy 6 [facility] Medications Current Medications Medication Drug Class(es) Dates Sig (Normalized) Sig (Original) acetaminophen 325 mg / HYDROcodone bitartrate 5 mg oral tablet (2 sources) Opioid Agonist Start: 12-02-2020 End: 12-10-2020 take 1 tablet by mouth every four hours as needed for pain, then take 7 tablets by mouth as needed for pain HYDROcodone-acetam inophen (NORCO) 5-325 mg per tablet Indications: Post-op pain Take 1 (one) tablet by mouth every 4 (four) hours as needed for pain (Days supply per fill: 7) . 30 tablet 0 12/03/2020 12/10/2020 Active cephalexin 500 mg oral capsule (1 source) Cephalosporin Antibacterial Start: 05-13-2019 End: 05-18-2019 take 1 capsule by mouth four times daily cephALEXin (KEFLEX) 500 MG capsule Take 1 (one) capsule (500 mg total) by mouth 4 (four) times a day for 5 days . 20 capsule 0 05/13/2019 05/18/2019 Active dextromethorphan hydrobromide 3 mg/ml / promethazine hydrochloride 1.25 mg/ml oral solution (2 sources) Phenothiazine, Uncompetitive Y-kyxffr-D-aspartat e Receptor Antagonist, Sigma-1 Agonist Start: 11-23-2017 take 5 mL by mouth every six hours as needed promethazine-dextr omethorphan 6.25-15 MG/5ML Syrup Take 5 mL by mouth every 6 hours as needed for Cough. 118 mL 0 11/23/2017 Active diclofenac sodium 0.01 mg/mg topical gel (2 sources) Nonsteroidal Anti-inflammatory Drug Start: 05-13-2019 End: 06-12-2019 diclofenac sodium 1 % Gel Apply 2 (two) g topically 4 (four) times a day . 240 g 0 05/13/2019 06/12/2019 Active hydrocortisone acetate 25 mg rectal suppository (1 source) Corticosteroid Start: 11-03-2018 End: 11-13-2018 hydrocortisone (ANUSOL-HC) 25 mg suppository Indications: Hemorrhoids, unspecified hemorrhoid type Insert 1 (one) suppository (25 mg total) into the rectum 2 (two) times a day for 10 days . 20 suppository 3 11/03/2018 11/13/2018 Active lidocaine 0.05 mg/mg medicated patch (3 sources) Antiarrhythmic, Amide Local Anesthetic Start: 09-16-2019 End: 09-16-2019 lidocaine 5 % Patch patch Place 1 patch on skin every 24 hours. Max of 12 hours of application then remove 12 patch 0 09/16/2019 Active loperamide hydrochloride 2 mg oral capsule (1 source) Opioid Agonist Start: 11-03-2018 End: 11-13-2018 take 1 capsule by mouth four times daily as needed for diarrhea loperamide (IMODIUM) 2 mg capsule Indications: Diarrhea, unspecified type Take 1 (one) capsule (2 mg total) by mouth 4 (four) times a day as needed for diarrhea . 30 capsule 5 11/03/2018 11/13/2018 Active nitrofurantoin, macrocrystals 25 mg / nitrofurantoin, monohydrate 75 mg oral capsule (2 sources) Nitrofuran Antibacterial Start: 11-24-2017 take 1 capsule by mouth twice daily nitrofurantoin, macrocrystal-monoh ydrate, 100 MG Cap Take 1 capsule by mouth 2 times daily. Take w/ food/milk 14 capsule 0 11/24/2017 Active 12 hr orphenadrine citrate 100 mg extended release oral tablet (2 sources) Muscle Relaxant Start: 09-16-2019 take 1 tablet by mouth twice daily orphenadrine ER 100 MG Tab SR 12 HR Take 1 tablet by mouth 2 times daily. 60 tablet 0 09/16/2019 Active predniSONE 20 mg oral tablet (4 sources) Start: 09-16-2019 take 1 tablet by mouth once daily predniSONE 20 MG Tab tablet Take 1 tablet by mouth daily. 10 tablet 0 09/16/2019 Active Start: 03-16-2019 End: 04-04-2019 predniSONE (DELTASONE) 20 MG tablet Indications: Lumbar back pain Take 3 tablets po x 3 days, then 2 tablets po x 3 days, then 1 tablet x 3 days, then 1/2 tablet (10mg) for 3 days. . 20 tablet 0 03/16/2019 04/04/2019 Discontinued (Therapy completed) Vit-DSS-Fe Cbn-FA (PRENA-CAP PO) (2 sources) Vit-DSS -Fe Cbn-FA (PRENA-CAP PO) Take by mouth. 0 Active vitamin with Ca-Iron-FA 27-1 mg Tab (2 sources) take 1 tablet by mouth once daily vitamin with Ca-Iron-FA 27-1 mg Tab Take 1 tablet by mouth daily . 0 Active traMADol hydrochloride 50 mg oral tablet (2 sources) Opioid Agonist Start: 09-16-2019 End: 09-19-2019 take 1 tablet by mouth every four hours as needed traMADol 50 MG Tab tablet Indications: Acute right-sided low back pain with right-sided sciatica Take 1 tablet by mouth every 4 hours as needed for up to 3 days. 12 tablet 0 09/16/2019 Active Completed/Discontinued Medications Medication Drug Class(es) Dates Sig (Normalized) Sig (Original) acetaminophen 325 mg oral tablet (1 source) Start: 12-01-2020 End: 12-03-2020 take 1 tablet by mouth every four hours as needed 650 mg, Oral, Every 4 hours PRN, mild pain, Starting 12/01/20 at 1227, aluminum hydroxide 40 mg/ml / magnesium hydroxide 40 mg/ml / simethicone 4 mg/ml oral suspension (1 source) Start: 12-01-2020 End: 12-03-2020 take 30 mL by mouth every four hours as needed 30 mL, Oral, Every 4 hours PRN, indigestion, Starting 12/01/20 at 1227, bisacodyl 10 mg rectal suppository (1 source) Stimulant Laxative Start: 12-01-2020 End: 12-03-2020 10 mg, Rectal, Daily PRN, constipation, Starting 12/01/20 at 1227, Use oral medication first for constipation.&nbsp ; Use rectal suppository, if ordered, for constipation if oral route not tolerated. calcium chloride 0.0014 meq/ml / potassium chloride 0.004 meq/ml / sodium chloride 0.103 meq/ml / sodium lactate 0.028 meq/ml injectable solution (2 sources) Start: 12-01-2020 End: 12-03-2020 take 125 mL intravenous route every hour 125 mL/hr, Intravenous, Continuous, Starting 12/01/20 at 1430, L&D Post-Delivery Start when oxyTOCIN (PITOCIN) drip is discontinued. Discontinue after 24 hours if patient is afebrile and tolerating orals. Start: 12-01-2020 End: 12-01-2020 take 2000 mL intravenous route every twenty-four hours as needed lactated ringers bolus 2,000 mL cholecalciferol 5000 unt oral tablet (3 sources) Vitamin D End: 04-04-2019 take 2 tablets by mouth once daily cholecalciferol, vitamin D3, (VITAMIN D3) 5,000 unit Tab tablet Take 10,000 Units by mouth daily . 0 04/04/2019 Discontinued (Therapy completed) diphenhydrAMINE (BENADRYL) oral solid 25 mg (1 source) Start: 12-01-2020 End: 12-03-2020 take 25 mg by mouth every six hours as needed diphenhydrAMINE (BENADRYL) oral solid 25 mg docusate sodium 100 mg oral capsule (1 source) Start: 12-01-2020 End: 12-03-2020 100 mg, Oral, 2 times daily PRN, constipation, Starting 12/01/20 at 1227, Use oral medication first for constipation. &n bsp;Use rectal suppository, if ordered, for constipation if oral route not tolerated. DO NOT CRUSH OR CHEW. 168 hr ethinyl estradiol 0.28836 mg/hr / norelgestromin 0.28313 mg/hr transdermal system (9 sources) Progestin, Estrogen Start: 08-09-2019 End: 08-08-2020 apply 1 dose transdermal route every week XULANE 150-35 mcg/24 hr patch Indications: Well female exam with routine gynecological exam Place 1 (one) patch on the skin once a week . 4 patch 11 08/09/2019 12/25/2019 Discontinued Start: 05-14-2019 End: 08-09-2019 apply 1 dose transdermal route every week XULANE 150-35 mcg/24 hr patch APPLY ONE PATCH TOPICALLY DIRECTED ONCE A WEEK 11 05/14/2019 08/09/2019 Discontinued (Reorder) Start: 10-23-2018 End: 04-04-2019 apply 1 dose transdermal route every week XULANE 150-35 mcg/[address] 1 patch on the skin once a week . 0 10/23/2018 04/04/2019 Discontinued (Therapy completed) Ethinyl Estradiol / norgestimate (3 sources) Progestin, Estrogen End: 04-04-2019 take 1 tablet by mouth once daily norgestimate-ethinyl estradiol (ORTHO TRI-CYCLEN,TRINESSA) 0.18/0.215/0.25 mg-35 mcg (28) per tablet Take 1 tablet by mouth daily . 0 04/04/2019 Discontinued (Therapy completed) take 1 tablet by mouth once lisa y norgestimate-ethinyl estradiol (ORTHO TRI-CYCLEN,TRINESSA) 0.18/0.215/0.25 mg-35 mcg (28) per tablet Take 1 tablet by mouth daily . 0 Active take 1 tablet by mouth once lisa y norgestimate-ethinyl estradiol (ORTHO TRI-CYCLEN,TRINESSA) 0.18/0.215/0.25 mg-35 mcg (28) per tablet Take 1 tablet by mouth daily . Active 1 ml HYDROmorphone hydrochloride 1 mg/ml injection (1 source) Opioid Agonist Start: 12-02-2020 End: 12-03-2020 take 0.5-1.5 mg intravenous route every three hours as needed 0.5-1.5 mg, Intravenous, Every 3 hours PRN, moderate to severe pain, Starting Tue12/02/20 at 0453 [] Initiate with 1 mg every 3 hours prn moderate to severe pain. [] For unrelieved pain, may give additional 0.5 mg within 30 minutes of initial dose. [] If pain is RELIEVED after repeat dose, change to 1.5 mg every 3 hours prn moderate to severe pain. [] If pain is UNrelieved after repeat dose or patient requires dose reduction, call physician. [] May use IV for breakthrough or if unable to tolerate oral route. ibuprofen 600 mg oral tablet (3 sources) Nonsteroidal Anti-inflammatory Drug Start: 12-03-2020 End: 12-03-2020 ibuprofen (ADVIL,MOTRIN) 600 MG tablet - ADS Override Pull Start: 12-02-2020 End: 01-02-2021 take 1 tablet by mouth every six hours as needed ibuprofen (ADVIL,MOTRIN) 600 MG tablet Take 1 (one) tablet (600 mg total) by mouth every 6 (six) hours as needed for pain . 60 tablet 1 12/03/2020 01/02/2021 Active 1 ml ketorolac tromethamine 30 mg/ml injection (2 sources) Nonsteroidal Anti-inflammatory Drug, Cyclooxygenase Inhibitor Start: 12-01-2020 End: 12-01-2020 take 30 mg intravenous route every six hours 30 mg, Intravenous, Every 6 hours, First dose on Tue12/01/20 at 1500, For 2 doses, Sign and Release Start 6 hours after dose given in OR. Give every 6 hours x 2 doses post-procedure. Start: 09-16-2019 End: 09-16-2019 ketorolac (TORADOL) injectio n 30 mg meloxicam 7.5 mg oral tablet (3 sources) Nonsteroidal Anti-inflammatory Drug End: 04-04-2019 take 1 tablet by mouth once daily as needed meloxicam (MOBIC) 7.5 MG tablet Take 7.5 mg by mouth daily as needed . 0 04/04/2019 Discontinued (Therapy completed) methylPREDNISolone 125 mg injection (1 source) Corticosteroid Start: 09-16-2019 End: 09-16-2019 methylPREDNISolone sodium succinate (SOLU-MEDROL) injection 125 mg Start: 09-16-2019 End: 09-16-2019 methylPREDNISolone sodium lozoya ccinate (SOLU-MEDROL) injection 125 mg naloxone (NARCAN) injection 0.1 mg (1 source) Start: 12-02-2020 End: 12-03-2020 naloxone (NARCAN) injection 0.1 mg 2 ml ondansetron 2 mg/ml injection (7 sources) Serotonin-3 Receptor Antagonist Start: 09-16-2019 End: 09-16-2019 ondansetron 4mg/2ml (ZOFRAN) injection 4 mg Start: 07-12-2019 End: 07-17-2019 take 1 tablet by mouth every eight hours as needed ondansetron (ZOFRAN ODT) 4 MG disintegrating tablet Dissolve 1 (one) tablet (4 mg total) on top of tongue every 8 (eight) hours as needed for nausea . 15 tablet 0 07/12/2019 Active Start: 07-12-2019 End: 07-12-2019 ondansetron (ZOFRAN) injecti on 4 mg oxytocin in lactated ringers (PITOCIN) 20 unit/1,000 mL infusion (1 source) Start: 12-01-2020 End: 12-01-2020 oxytocin in lactated ringers (PITOCIN) 20 unit/1,000 mL infusion pantoprazole 40 mg injection (1 source) Proton Pump Inhibitor Start: 07-12-2019 End: 07-12-2019 pantoprazole (PROTONIX) injection 40 mg simethicone 80 mg chewable tablet (1 source) Start: 12-01-2020 End: 12-03-2020 80 mg, Oral, After meals as needed, flatulence, gas or abdominal discomfort, Starting 12/01/20 at 1227, 1000 ml sodium chloride 9 mg/ml injection (3 sources) Start: 12-01-2020 End: 12-03-2020 0-150 mL/hr, Intravenous, As needed, To flush line after IV infusions when no maintenance IV ordered or a compatibility issue. Infuse 20ml at the same rate as the secondary infusion, Starting 12/01/20 at 1339, L&D Post-Delivery Run as Primary IV. NOT intended for KVO. Start: 07-12-2019 End: 07-12-2019 sodium chloride 0.9% (NS) daniel matias 1,000 mL Start: 07-12-2019 End: 07-12-2019 sodium chloride (PF) (NS) fl ush 5 mL Problems Active Problems Problem Classification Problem Date Documented Da te Episodic/Chronic Abdominal pain (1 source) Generalized abdominal pain; Translations: [Abdominal pain, generalized] Episodic Administrative/social admission (2 sources) Encounter for pre-employment examination; Translations: [Encounter for pre-employment examination] Onset: 03-01-2023 Episodic Headache; including migraine (2 sources) Migraine without aura, not intractable, without status migrainosus; Translations: [Migraine without aura, not intractable, without status migrainosus] Onset: 11-01-2022 Chronic Hemorrhoids (1 source) Hemorrhoids; Translations: [Hemorrhoids, unspecified hemorrhoid type] Episodic Nausea and vomiting (2 sources) Nausea and vomiting; Translations: [Nausea with vomiting, unspecified] Onset: 11-28-2023 Episodic Noninfectious gastroenteritis (1 source) Chronic diarrhea; Translations: [Chronic diarrhea] Episodic Nutritional deficiencies (1 source) Vitamin D deficiency; Translations: [Vitamin D deficiency] Chronic Nutritional deficiencies (1 source) Vitamin B deficiency; Translations: [Vitamin B deficiency] Episodic Other complications of ; puerperium affecting management of mother (1 source) Encounter for delivery without indication; Translations: [O82 - Encounter for delivery without indication] Onset: 07-12-2018 Episodic Other complications of (1 source) Anemia complicating , third trimester; Translations: [Anemia complicating , third trimester] Onset: 04-11-2018 Chronic Other gastrointestinal disorders (1 source) Irritable bowel syndrome with diarrhea; Translations: [Irritable bowel syndrome with diarrhea] Chronic Other gastrointestinal disorders (1 source) Diarrhea; Translations: [Diarrhea, unspecified type] Episodic Other nervous system disorders (1 source) Postoperative pain ; Translations: [Post-op pain] Episodic Other nutritional; endocrine; and metabolic disorders (3 sources) Obesity, unspecified; Translations: [Obesity (BMI 30.0-34.9)] Onset: 04-04-2019 04-04-2019 Chronic Other nutritional; endocrine; and metabolic disorders (12 sources) Obese class I; Translations: [Obesity (BMI 30.0-34.9)] Onset: 04-04-2019 04-04-2019 Other upper respiratory infections (4 sources) Posterior rhinorrhea; Translations: [Postnasal drip] Onset: 09-28-2023 09-28-2023 Episodic Residual codes; unclassified (1 source) Chronic back pain ; Translations: [Other chronic back pain] Episodic Residual codes; unclassified (1 source) Contact with and (suspected) exposure to potentially hazardous body fluids; Translations: [Exposure to blood or body fluid] Episodic Residual codes; unclassified (2 sources) Gestation period, 39 weeks; Translations: [39 weeks gestation of ] Onset: 12-01-2020 12-01-2020 Episodic Residual codes; unclassified (1 source) 38 weeks gestation of ; Translations: [38 weeks gestation of ] Onset: 06-16-2018 Residual codes; unclassified (1 source) 28 weeks gestation of ; Translations: [28 weeks gestation of ] Onset: 04-10-2018 Residual codes; unclassified (1 source) 25 weeks gestation of ; Translations: [25 weeks gestation of ] Onset: 03-20-2018 Residual codes; unclassified (1 source) 9 weeks gestation of ; Translations: [9 weeks gestation of ] Onset: 11-25-2017 Unclassified (1 source) Unknown / UNK(Unknown) Onset: 11-17-2017 Unclassified (1 source) Screening status; Translations: [Screening for thyroid disorder] Past or Other Problems Problem Classification Problem Date Documented Da te Episodic/Chronic E Codes: Cut/pierceb (2 sources) Contact with hypodermic needle, initial encounter; Translations: [Contact with hypodermic needle, initial encounter] Onset: 12-11-2023 Episodic Other and delivery including normal (2 sources) Encounter for supervision of normal first , third trimester; Translations: [Encounter for supervision of normal first , first trimester] Onset: 11-25-2017 Episodic Spondylosis; intervertebral disc disorders; other back problems (20 sources) Low back pain; Translations: [Acute back pain with sciatica] Onset: 04-04-2019 04-04-2019 Episodic Unclassified (9 sources) Patient encounter status; Translations: [Well adult exam] Onset: 08-09-2019 Resolved: 08-12-2019 08-12-2019 Results Test Name Value Interpretation Reference Range Facility [facility] 11-29-2023 ABSOLUTE BAS 0.0 10*3/uL Normal 0.0-0.2 [facility] Comment on above: Performed By: #### A CBC, CMPF, LIPA2 #### Testing performed at [address] [address] ABSOLUTE EOS 0.1 10*3/uL Normal 0.0-0.7 [facility] Comment on above: Performed By: #### A CBC, CMPF, LIPA2 #### Testing performed at [address] [address] ABSOLUTE NEUTROPHIL COUNT 12.8 10*3/uL High 1.4-6.5 [facility] Comment on above: Performed By: #### A CBC, CMPF, LIPA2 #### Testing performed at [address] [address] Basophils/100 WBC (Bld) 0.2 % Normal 0.0-2.0 [facility] Comment on above: Performed By: #### A CBC, CMPF, LIPA2 #### Testing performed at [address] [address] DTYPE AUTO DIFF Normal [facility] Comment on above: Performed By: #### A CBC, CMPF, LIPA2 #### Testing performed at [address] [address] Eosinophils/100 WBC (Bld) 0.5 % Normal 0.0-11.0 [facility] Comment on above: Performed By: #### A CBC, CMPF, LIPA2 #### Testing performed at [address] [address] Lymphocytes (Bld) [#/Vol] 1.4 10*3/uL Normal 1.2-3.4 [facility] Comment on above: Performed By: #### A CBC, CMPF, LIPA2 #### Testing performed at [address] [address] Lymphocytes/100 WBC (Bld) 9.5 % Low 20.0-55.0 [facility] Comment on above: Performed By: #### A CBC, CMPF, LIPA2 #### Testing performed at [address] [address] Monocytes (Bld) [#/Vol] 0.8 10*3/uL High 0.0-0.7 [facility] Comment on above: Performed By: #### A CBC, CMPF, LIPA2 #### Testing performed at [address] [address] Monocytes/100 WBC (Bld) 5.2 % Normal 0.0-10.0 [facility] Comment on above: Performed By: #### A CBC, CMPF, LIPA2 #### Testing performed at [address] [address] Neutrophils/100 WBC (Bld) 84.6 % High 37.0-75.0 [facility] Comment on above: Performed By: #### A CBC, CMPF, LIPA2 #### Testing performed at [address] [address] Erythrocyte distribution width (RBC) [Ratio] 12.8 % Normal 11.5-14.5 [facility] Comment on above: Performed By: #### A CBC, CMPF, LIPA2 #### Testing performed at [address] [address] Hematocrit (Bld) [Volume fraction] 44.0 % Normal 36.0-48.0 [facility] Comment on above: Performed By: #### A CBC, CMPF, LIPA2 #### Testing performed at [address] [address] Hemoglobin (Bld) [Mass/Vol] 14.6 g/dL Normal 12.0-16.0 [facility] Comment on above: Performed By: #### A CBC, CMPF, LIPA2 #### Testing performed at [address] [address] MCH (RBC) [Entitic mass] 29.5 pg Normal 26.0-35.0 [facility] Comment on above: Performed By: #### A CBC, CMPF, LIPA2 #### Testing performed at [address] [address] MCHC (RBC) [Mass/Vol] 33.2 g/dL Normal 27.0-37.0 [facility] Comment on above: Performed By: #### A CBC, CMPF, LIPA2 #### Testing performed at [address] [address] MCV (RBC) [Entitic vol] 88.9 fL Normal 80.0-100.0 [facility] Comment on above: Performed By: #### A CBC, CMPF, LIPA2 #### Testing performed at [address] [address] Platelet mean volume (Bld) [Entitic vol] 9.1 fL Normal 7.4-11.0 [facility] Comment on above: Performed By: #### A CBC, CMPF, LIPA2 #### Testing performed at [address] [address] Platelets (Bld) [#/Vol] 245 10*3/uL Normal 130-400 [facility] Comment on above: Performed By: #### A CBC, CMPF, LIPA2 #### Testing performed at [address] [address] RBC (Bld) [#/Vol] 4.95 10*6/uL Normal 4.0-5.4 [facility] Comment on above: Performed By: #### A CBC, CMPF, LIPA2 #### Testing performed at [address] [address] WBC (Bld) [#/Vol] 15.2 10*3/uL High 3.6-11.0 [facility] Comment on above: Performed By: #### A CBC, CMPF, LIPA2 #### Testing performed at [address] [address] CMP FASTINGon 11-29-2023 A:G RATIO 1.6 RATIO Normal [facility] Comment on above: Performed By: #### A CBC, CMPF, LIPA2 #### Testing performed at [address] [address] ALBUMIN 4.5 G/dl Normal 3.5-5.0 [facility] Comment on above: Performed By: #### A CBC, CMPF, LIPA2 #### Testing performed at [address] [address] ALP [Catalytic activity/Vol] 46 U/L Normal 38-126 [facility] Comment on above: Performed By: #### A CBC, CMPF, LIPA2 #### Testing performed at [address] [address] ALT [Catalytic activity/Vol] 23 U/L Normal <35 [facility] Comment on above: Performed By: #### A CBC, CMPF, LIPA2 #### Testing performed at [address] [address] AST [Catalytic activity/Vol] 29 U/L Normal 14-36 [facility] Comment on above: Performed By: #### A CBC, CMPF, LIPA2 #### Testing performed at [address] [address] Bilirubin [Mass/Vol] 0.5 mg/dL Normal 0.2-1.3 [facility] Comment on above: Performed By: #### A CBC, CMPF, LIPA2 #### Testing performed at [address] [address] Calcium [Mass/Vol] 9.2 mg/dL Normal 8.4-10.2 [facility] Comment on above: Performed By: #### A CBC, CMPF, LIPA2 #### Testing performed at [address] [address] Chloride [Moles/Vol] 103 mmol/L Normal 98-107 [facility] Comment on above: Result Comment: Catherine read note: Triglyceride levels of 600mg/dL or higher may positively bias chloride results by approximately 2.1 mmol Performed By: #### A CBC, CMPF, LIPA2 #### Testing performed at [address] [address] CO2 [Moles/Vol] 24 mmol/L Normal 22-30 [facility] Comment on above: Performed By: #### A CBC, CMPF, LIPA2 #### Testing performed at [address] [address] Creatinine [Mass/Vol] 0.90 mg/dL Normal 0.70-1.20 [facility] Comment on above: Performed By: #### A CBC, CMPF, LIPA2 #### Testing performed at [place] [id number] EST. GFR, 97 ml/min/1.73sq.m [facility] Comment on above: Performed By: #### A CBC, CMPF, LIPA2 #### Testing performed at [place] [id number] EST. GFR,Non 80 ml/min/1.73sq.m [facility] Comment on above: Performed By: #### A CBC, CMPF, LIPA2 #### Testing performed at [place] [id number] GFR Information Average GFR for 20-2 9 years old = 116. Normal [facility] Comment on above: Result Comment: Disease Case Manager reyna Kidney disease, GFR = <60. Kidney failure, GFR = <15. The GFR estimate is not adjusted for extreme body surface area or acute process, nor has it been validated for women or ethnic groups other than and . Performed By: #### A CBC, CMPF, LIPA2 #### Testing performed at [place] [id number] Glucose [Mass/Vol] 95 mg/dL Normal 70-100 [facility] Comment on above: Result Comment: NORMAL <100 mg/dL PREDIABETES 101-126 mg/dL DIABETES 126 mg/dL or higher Performed By: #### A CBC, CMPF, LIPA2 #### Testing performed at [place] [id number] Potassium [Moles/Vol] 3.7 mmol/L Normal 3.5-5.1 [facility] Comment on above: Performed By: #### A CBC, CMPF, LIPA2 #### Testing performed at [place] [id number] Protein [Mass/Vol] 7.4 g/dL Normal 6.3-8.2 [facility] Comment on above: Performed By: #### A CBC, CMPF, LIPA2 #### Testing performed at [place] [id number] Sodium [Moles/Vol] 134 mmol/L Low 137-145 [facility] Comment on above: Performed By: #### A CBC, CMPF, LIPA2 #### Testing performed at [address] [address] Urea nitrogen [Mass/Vol] 21 mg/dL High 7-20 [facility] Comment on above: Performed By: #### A CBC, CMPF, LIPA2 #### Testing performed at [address] [address] LACTATE,BLOODon 11-29-2023 Lactate [Moles/Vol] 1.1 mmol/L Normal 0.7-2.0 [facility] Comment on above: Performed By: #### L ACTAC #### Testing performed at [address] [address] LIPASE,SERUMon 11-29-2023 LIPASE,SERUM 40 U/L Normal 23-300 [facility] Comment on above: Performed By: #### A CBC, CMPF, LIPA2 #### Testing performed at [address] [address] QUANTIFERON TB GOLD PLUS 1 T UBEon 03-03-2023 QUANTIFERNON INCUBATION Incubation performed. Normal [facility] Comment on above: Performed By: #### Z QFIT, LMMR, LQFIT #### Testing performed at [facility] [address] [place] [address] QUANTIFERON-TB GOLD PLUS Negative Normal [facility] Comment on above: Result Comment: Refe rence range: Negative (NOTE) No response to M tuberculosis antigens detected. Infection with M tuberculosis is unlikely, but high risk individuals should be considered for additional testing (ATS/IDSA/CDC Clinical Practice Guidelines, 2017). The reference range is an Antigen minus Nil result of <0.35 IU/mL. Chemiluminescence immunoassay methodology PERFORMED AT [facility] Performed By: #### Z QFIT, LMMR, LQFIT #### Testing performed at [facility] [address] [place] [address] RFLX QUANTIFERON-TB GOLD PLU Son 03-03-2023 QUANTIFERON CRITERIA Comment Normal [facility] Comment on above: Result Comment: (NOT E) QuantiFERON-TB Gold Plus is a qualitative indirect test for M tuberculosis infection (including disease) and is intended for use in conjunction with risk assessment, radiography, and other medical and diagnostic evaluations. The QuantiFERON-TB Gold Plus result is determined by subtracting the Nil value from either TB antigen (Ag) value. The Mitogen tube serves as a control for the test. Performed By: #### Z QFIT, LMMR, LQFIT #### [place] [address] QUANTIFERON MITOGEN VALUE 5.83 [facility] Comment on above: Result Comment: Unit : IU/mL PERFORMED AT [facility] Performed By: #### Z QFIT, LMMR, LQFIT #### Testing performed at [address] [address] QUANTIFERON NIL VALUE 0.01 [facility] Comment on above: Result Comment: Unit : IU/mL Performed By: #### Z QFIT, LMMR, LQFIT #### [place] [address] QUANTIFERON TB1 AG VALUE 0.01 [facility] Comment on above: Result Comment: Unit : IU/mL Performed By: #### Z QFIT, LMMR, LQFIT #### [place] [address] QUANTIFERON TB2 AG VALUE 0.00 [facility] Comment on above: Result Comment: Unit : IU/mL Performed By: #### Z QFIT, LMMR, LQFIT #### Testing performed at [address] [address] MEASLES,MUMP,RUBELLAon 03-02 MUMPS ABS, IGG 121.0 [facility] Comment on above: Result Comment: Refe rence range: Immune >10.9 Unit: AU/mL (NOTE) Negative <9.0 Equivocal 9.0 - 10.9 Positive >10.9 A positive result generally indicates past exposure to Mumps virus or previous vaccination. PERFORMED AT [facility] Performed By: #### Z QFIT, LMMR, LQFIT #### Testing performed at [facility] [address] [facility] [place] [address] RUBELLA AB, IGG 12.60 Normal [facility] Comment on above: Result Comment: Refe rence range: Immune >0.99 Unit: index (NOTE) Non-immune <0.90 Equivocal 0.90 - 0.99 Immune >0.99 Performed By: #### Z QFIT, LMMR, LQFIT #### Testing performed at [facility] [address] [facility] [place] [address] RUBEOLA AB, IGG 79.4 Normal [facility] Comment on above: Result Comment: Refe rence range: Immune >16.4 Unit: AU/mL (NOTE) Negative <13.5 Equivocal 13.5 - 16.4 Positive >16.4 Presence of antibodies to Rubeola is presumptive evidence of immunity except when acute infection is suspected. Performed By: #### Z QFIT, LMMR, LQFIT #### Testing performed at [facility] [address] [place] [address] HEP B SURFACE ABon HEP B SURFACE AB Positive Normal POSITIVE [facility] Comment on above: Result Comment: Clinical Interpretation of Immune Status Negative: patient is considered to be not immune to infection with HBV Intermediate: unable to determine if anti-HBs is present at levels consistent with immunity Positive: anti-HBs detected, patient is considered to be immune to infection with HBV HEP C ABon 03-01-2023 HEP C AB Negative Normal NEGATIVE [facility] HEPATITIS B SURFACE ANTIBODY on 09-13-2022 HEPATITIS B VIRUS SURFACE AB PRESENCE IN SERUM Reactive Normal Reactive [facility] Comment on above: Result Comment: REFERENCE RANGE: NONREACTIVE: Patient is considered not immune to infection with HBV. REACTIVE: Patient is considered to be immune to infection with HBV. Performed By: #### L [id number] #### [facility] [address] [place] [address] [place] MUMPS ANTIBODY, IGGon 2021 MUMPS VIRUS ANTIBODY, IGG <9.00 Low [facility] Comment on above: Result Comment: AU/m L Interpretation ------- <9.00 Not consistent with immunity 9.00-10.99 Equivocal >10.99 Consistent with immunity The presence of mumps IgG antibody suggests immunization or past or current infection with mumps virus. Performed By: #### L [id number], [id number] #### [facility] [address] [address] [place] QUANTIFERON-TB GOLDon 2021 QUANTIFERON (R)-TB PLUS,1 TUBE Negative Normal NEGATIVE [facility] Comment on above: Result Comment: Nega tive test result. M. tuberculosis complex infection unlikely. Performed By: #### L [id number] #### [facility] [address] [place] [address] [place] QUANTIFERON MITOGEN-NIL 9.70 IU/mL Normal [facility] Comment on above: Performed By: #### L [id number] #### [facility] [address] [address] [place] QUANTIFERON NIL 0.02 IU/mL Normal [facility] Comment on above: Performed By: #### L [id number] #### [facility] [address] [place] [address] [place] QUANTIFERON PLUS TB1-NIL 0.00 IU/mL Normal [facility] Comment on above: Performed By: #### L [id number] #### [facility] [address] [address] [place] QUANTIFERON PLUS TB2-NIL <0.00 [facility] Comment on above: Result Comment: The Nil tube value reflects the background interferon gamma immune response of the patient's blood sample. This value has been subtracted from the patient's displayed TB and Mitogen results. Lower than expected results with the Mitogen tube prevent false-negative Quantiferon readings by detecting a patient with a potential immune suppressive condition and/or suboptimal pre-analytical specimen handling. The TB1 Antigen tube is coated with the M. tuberculosis-specific antigens designed to elicit responses from TB antigen primed CD4+ helper T-lymphocytes. The TB2 Antigen tube is coated with the M. tuberculosis-specific antigens designed to elicit responses from TB antigen primed CD4+ helper and CD8+ cytotoxic T-lymphocytes. For additional information, please refer to [email or web address].Ocapi/faq/[email or web address] (This link is being provided for informational/ educational purposes only.) Performed By: #### L [id number] #### [facility] [address] [place] [address] [place] RUBELLA ANTIBODY, IGGon 08-31 RUBELLA IGG SCREEN Reactive Normal [facility] Comment on above: Result Comment: *Non-Reactive: Antibody level may be insufficient to provide protection against Rubella virus infection. *Indeterminate: Repeat testing in 1-2 weeks may help clarify. *Reactive: Indicates current or past infection or vaccination. Performed By: #### L [id number] #### [facility] [address] [place] [address] [place] RUBEOLA ANTIBODY IGGon 09-13 RUBEOLA ANTIBODY, IGG QUALITATIVE Positive Normal [facility] Comment on above: Result Comment: Pres ence of IgG antibody may indicate prior immunization or infection. Performed By: #### L [id number] #### [facility] [address] [place] [address] [place] VARICELLA ZOSTER ANTIBODY, I GGon 09-13-2022 VARICELLA ZOSTER VIRUS ANTIBODY, IGG 378[address] index Normal [facility] Comment on above: Result Comment: Inde x Interpretation --------- <135.00 Negative - Antibody not detected 135.00 - 164.99 Equivocal > or = 165.00 Positive - Antibody detected A positive result indicates that the patient has antibody to VZV but does not differentiate between an active or past infection. The clinical diagnosis must be interpreted in conjunction with the clinical signs and symptoms of the patient. This assay reliably measures immunity due to previous infection but may not be sensitive enough to detect antibodies induced by vaccination. Thus, a negative result in a vaccinated individual does not necessarily indicate susceptibility to VZV infection. A more sensitive test for vaccination-induced immunity is Varicella Zoster Virus Antibody Immunity Screen, ACIF. Performed By: #### L [id number], [id number] #### [facility] [address] [place] [address] [facility] CBCon 12-02-2020 Erythrocyte distribution width (RBC) [Entitic vol] 13.4 % 11.6 - 14.8 % [facility] Hematocrit (Bld) [Volume fraction] 29.0 % Low 36.0 - 46.0 % [facility] Hemoglobin (Bld) [Mass/Vol] 9.3 g/dL Low 12.0 - 16.0 g/dL [facility] Interpretation and review of laboratory results Abnormal [facility] MCH (RBC) [Entitic mass] 29.9 pg 26.0 - 34.0 pg [facility] MCHC (RBC) [Mass/Vol] 32.1 g/dL 31.0 - 37.0 g/dL [facility] MCV (RBC) [Entitic vol] 93.2 fL 80.0 - 100.0 fL [facility] Nucleated RBC (Bld) [#/Vol] 0.00 10*3/uL [facility] Nucleated RBC/100 WBC (Bld) [Ratio] 0.0 % [facility] Platelet mean volume (Bld) [Entitic vol] 10.8 fL 9.4 - 12.4 fL [facility] Platelets (Bld) [#/Vol] 174 10*3/uL [facility] RBC (Bld) [#/Vol] 3.11 10*6/uL Low [facility] WBC (Bld) [#/Vol] 14.42 10*3/uL High [facility] ABORH VERIFICATIONon 021 ABO and Rh group Nom (Bld) ABO/Rh Verification [facility] Comment on above: Patient's ABO/Rh is verified. ABO and Rh group Nom (Bld) O Positive [facility] CBCon 12-01-2020 Erythrocyte distribution width (RBC) [Entitic vol] 13.2 % 11.6 - 14.8 % [facility] Hematocrit (Bld) [Volume fraction] 35.6 % Low 36.0 - 46.0 % [facility] Hemoglobin (Bld) [Mass/Vol] 11.6 g/dL Low 12.0 - 16.0 g/dL [facility] Interpretation and review of laboratory results Abnormal [facility] MCH (RBC) [Entitic mass] 29.5 pg 26.0 - 34.0 pg [facility] MCHC (RBC) [Mass/Vol] 32.6 g/dL 31.0 - 37.0 g/dL [facility] MCV (RBC) [Entitic vol] 90.6 fL 80.0 - 100.0 fL [facility] Nucleated RBC (Bld) [#/Vol] 0.00 10*3/uL [facility] Nucleated RBC/100 WBC (Bld) [Ratio] 0.0 % [facility] Platelet mean volume (Bld) [Entitic vol] 10.8 fL 9.4 - 12.4 fL [facility] Platelets (Bld) [#/Vol] 193 10*3/uL [facility] RBC (Bld) [#/Vol] 3.93 10*6/uL Low [facility] WBC (Bld) [#/Vol] 8.21 10*3/uL [facility] SCAN OTHER ORDERSon 12-01-19 21 Ordered by an unspec ified provider. [facility] Type and Screenon 12-01-2020 ABO and Rh group Nom (Bld) O Positive [facility] Blood group antibody screen Ql Negative [facility] Specimen Expires 12/04/2020 23:59 EST [facility] Group B Strep PCR, Vaginal/R ectalon 11-17-2020 Interpretation and review of laboratory results Abnormal [facility] S. agalactiae Ag Ql (Unsp spec) Positive Abnormal Negative [facility] Rupture of Membranes ( [place] Only)on 11-14-2020 Interpretation and review of laboratory results Normal [facility] Rupture of Membranes Negative Negative [facility] URINALYSISon 11-14-2020 Bacteria Auto Ql (U) None Seen None Seen /hpf [facility] Bilirubin Ql (U) Negative Negative [facility] th Clarity Refractometry automated (U) Clear Clear [facility] Color (U) Yellow Colorless, Yellow [facility] Glucose Auto test strip (U) [Mass/Vol] Negative Negative mg/dL [facility] Hemoglobin Auto test strip Ql (U) Small Abnormal Negative [facility] Interpretation and review of laboratory results Abnormal [facility] Ketones (U) [Mass/Vol] 20 Abnormal Negative mg/dL [facility] Leukocyte esterase Auto test strip Ql (U) Negative Negative [facility] Mucus Auto (Urine sed) [#/Area] Rare None Seen, Rare /lpf [facility] Nitrite Auto test strip Ql (U) Negative Negative [facility] pH (U) 6.0 [pH] [facility] Protein (U) [Mass/Vol] Negative Negative mg/dL [facility] RBC Auto (Urine sed) [#/Area] 19 High [facility] Specific gravity (U) [Rel density] 1.017 [facility] Urobilinogen (U) [Mass/Vol] <2.0 <2.0 mg/dL [facility] WBC Auto (Urine sed) [#/Area] <1 [facility] Microscopic examinat ion is performed on all urinalysis samples and only positive findings are reported. The test for blood on the chemical analytic portion of urinalysis may also be positive due to hemoglobinuria and myoglobinuria and if red blood cells are present they are quantified by microscopic examination. [facility] COVID-19, MOLECULARon 2019 SARS-COV-2 ([place]) Detected Abnormal Not Detected [facility] Comment on above: Order Comment: : Marisabel l Swab COVID/Flu Lab Tests (OP in UTM/Dry) Result Comment: This test was performed under the FDA's Emergency Use Authorization (EUA). Testing was performed using the Simplexa SARS-CoV-2 assay ([employer]) on the REMOTV platform. This test has not been approved for use in asymptomatic patients and its performance in this patient population has not been evaluated. Negative results do not rule out the presence of SARS-CoV-2/COVID-19. Fact sheets for this EUA can be found at the following links: For Healthcare Providers: https://www.fda.gov/media/493653/download For Patients: https://www.fda.gov/media/105826/download Performed By: #### L [id number] #### [facility] [address] [place] [address] Donny Anderson M.D. 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 COVID-19, MOLECULARon 2019 SARS-COV-2 RNA (KEVYN) Not Detected Normal Not Detected [facility] Comment on above: Result Comment: This test was performed under the FDA's Emergency Use Authorization (EUA). Testing was performed using the Alejandra SARS-CoV-2 assay on the Kevyn Alejandra 6800 System. This test has not been approved for use in asymptomatic patients and its performance in this patient population has not been evaluated. Negative results do not rule out the presence of SARS-CoV-2/COVID-19. Fact sheets for this EUA can be found at the following links: For Healthcare Providers: https://www.fda.gov/media/765690/download For Patients: https://www.fda.gov/media/511726/download Performed By: #### L [id number] #### [facility] [address] [place] [address] Donny Anderson M.D. [id number] CBC AND DIFFERENTIALon 05-20 Hematocrit (Bld) [Volume fraction] 37.6 % 36.0 - 46.0 % [facility] Hemoglobin (Bld) [Mass/Vol] 13.2 g/dL 12.0 - 16.0 g/dL [facility] Platelets (Bld) [#/Vol] 220 10*3/uL [facility] HEPATITIS C ANTIBODYon 05-20 HCV Ab Ql (S) Negative Negative [facility] HIV 1/2 SCREEN (4TH GENERATI ON)on 05-20-2020 HIV 1+2 Ab+HIV1 p24 Ag IA Ql Negative Negative [facility] RPRon 05-20-2020 Reagin Ab RPR Ql (S) Non-Reactive Non-Reactive [facility] RUBELLA ANTIBODY, IGGon 05-01 Rubella virus IgG Ql (S) Immune [facility] Type and Screenon 05-20-2020 ABO and Rh group Nom (Bld) o [facility] Rh Type Positive [facility] US ABDOMEN LIMITED STUDYon 0 03-19-2020 4 mm echogenic focus within the gallbladder consistent with a gallbladder polyp. 2. The remainder of the right upper quadrant is unremarkable. Workstation ID: [id number] [facility] EXAMINATION: US ABDO MEN LIMITED STUDY HISTORY: ORDERING SYSTEM PROVIDED HISTORY: Abdominal pain, generalized, TECHNOLOGIST PROVIDED HISTORY: Illness/Other Reason for exam: RUQ PAIN, NAUSEA, DIARRHEA Cancer History: UNKNOWN Surgery, RadiationHistory: UNKNOWN Encounter Type: Initial Additional signs and symptoms: NO ORDERING SYSTEM PROVIDED DIAGNOSIS CODES: R10.84 Abdominal pain, generalized COMPARISON: None TECHNIQUE: Grayscale and color imaging was performed FINDINGS: The pancreas appears normal. The liver appears normal in size. No focal masses or biliary dilatation is noted. Common bile duct is normal measuring 2 mm. The right kidney measures 10.3 x 3.9 x 4.7 cm. Color flow is noted. No solid renal cortical masses or hydronephrosis is noted. Scanning of the gallbladder demonstrates a 4 mm echogenic focus along the wall of the gallbladder. No shadowing is noted. Findings would be consistent with a small gallbladder polyp. No gallbladder wall thickening is noted. Patient had no pain upon scanning over the gallbladder. No fluid is noted in the right upper quadrant. [facility] Interface, Rad In Fu ji Speechq - 03/19/2020 7:59 AM EDT EXAMINATION: US ABDOMEN LIMITED STUDY HISTORY: ORDERING SYSTEM PROVIDED HISTORY: Abdominal pain, generalized, TECHNOLOGIST PROVIDED HISTORY: Illness/Other Reason for exam: RUQ PAIN, NAUSEA, DIARRHEA Cancer History: UNKNOWN Surgery, RadiationHistory: UNKNOWN Encounter Type: Initial Additional signs and symptoms: NO ORDERING SYSTEM PROVIDED DIAGNOSIS CODES: R10.84 Abdominal pain, generalized COMPARISON: None TECHNIQUE: Grayscale and color imaging was performed FINDINGS: The pancreas appears normal. The liver appears normal in size. No focal masses or biliary dilatation is noted. Common bile duct is normal measuring 2 mm. The right kidney measures 10.3 x 3.9 x 4.7 cm. Color flow is noted. No solid renal cortical masses or hydronephrosis is noted. Scanning of the gallbladder demonstrates a 4 mm echogenic focus along the wall of the gallbladder. No shadowing is noted. Findings would be consistent with a small gallbladder polyp. No gallbladder wall thickening is noted. Patient had no pain upon scanning over the gallbladder. No fluid is noted in the right upper quadrant. IMPRESSION: 4 mm echogenic focus within the gallbladder consistent with a gallbladder polyp. 2. The remainder of the right upper quadrant is unremarkable. Workstation ID: [id number] [facility] Gestational Diabetes Screen (50G)on 11-17-2019 Glucose 1 Hr post 50 g glucose PO [Mass/Vol] 112 mg/dL 65 - 135 mg/dL [facility] Chem 7on 07-12-2019 Anion gap [Moles/Vol] 11 mmol/L 10 - 20 mmol/L [facility] Chloride [Moles/Vol] 108 mmol/L 98 - 108 mmol/L [facility] Creatinine [Mass/Vol] 0.81 mg/dL 0.4 - 1.1 mg/dL [facility] GFR/1.73 sq M predicted among non-blacks MDRD (S/P/Bld) [Vol rate/Area] The eGFR should be used for monitoring renal function only and not for medication dosing. [facility] GFR/1.73 sq M.predicted CKD-EPI (S/P/Bld) [Vol rate/Area] 103 >=60 mL/min/1.73 m2 [facility] Glucose [Mass/Vol] 100 mg/dL High 65 - 99 mg/dL [facility] HCO3 [Moles/Vol] 23 mmol/L 21 - 32 mmol/L [facility] Interpretation and review of laboratory results Abnormal [facility] Potassium [Moles/Vol] 4.0 mmol/L 3.5 - 5.1 mmol/L [facility] Sodium [Moles/Vol] 138 mmol/L 135 - 145 mmol/L [facility] Urea nitrogen [Mass/Vol] 14 mg/dL 8 - 25 mg/dL [facility] Urea nitrogen/Creatini ne [Mass ratio] 17.3 mg/mg [facility] HCG (QUALITATIVE)on 07-12-20 19 Beta HCG ( test) Ql Negative Negative [facility] Interpretation and review of laboratory results Normal [facility] Negative: The result is less than or equal to 5 mIU/mL of HCG. [facility] Otheron 07-12-2019 Extra Tube Hold for add-ons. [facility] Comment on above: Auto resulted. CT LUMBAR SPINE WITHOUT CONT RASTon 05-13-2019 Degenerative disc di sease at L5-S1. Nonobstructing left renal calculus. No fracture or spondylolisthesis. 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 Coronal and sagittal reformations were performed. Additional 3D post processing was performed on a separate workstation. Dose reduction techniques were achieved by using automated exposure control and/or adjustment of mA and/or kV according to patient size and/or use of iterative reconstruction technique. FINDINGS: There is no acute fracture. Vertebral body height is maintained. There is mild disc space narrowing at L5-S1. There is a moderate central disc bulge at this level, which does not impressed significantly upon the thecal sac. The neural foramina are patent. No spondylolisthesis. Nonobstructing inferior pole left renal calculus is visualized. 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 Coronal and sagittal reformations were performed. Additional 3D post processing was performed on a separate workstation. Dose reduction techniques were achieved by using automated exposure control and/or adjustment of mA and/or kV according to patient size and/or use of iterative reconstruction technique. FINDINGS: There is no acute fracture. Vertebral body height is maintained. There is mild disc space narrowing at L5-S1. There is a moderate central disc bulge at this level, which does not impressed significantly upon the thecal sac. The neural foramina are patent. No spondylolisthesis. Nonobstructing inferior pole left renal calculus is visualized. IMPRESSION: Degenerative disc disease at L5-S1. Nonobstructing left renal calculus. No fracture or spondylolisthesis. Workstation ID: [id number] [facility] URINALYSISon 05-13-2019 Bacteria Auto Ql (U) Many Abnormal None Seen /hpf [facility] Bilirubin Ql (U) Negative Negative [facility] Clarity Refractometry automated (U) Hazy Abnormal Clear [facility] Color (U) Yellow Colorless, Yellow [facility] Epithelial cells.squamous Auto (Urine sed) [#/Area] 6 High [facility] Glucose Auto test strip (U) [Mass/Vol] Negative Negative mg/dL [facility] Hemoglobin Auto test strip Ql (U) Negative Negative [facility] Interpretation and review of laboratory results Abnormal [facility] Ketones (U) [Mass/Vol] Negative Negative mg/dL [facility] Leukocyte esterase Auto test strip Ql (U) Large Abnormal Negative [facility] Mucus Auto (Urine sed) [#/Area] Rare None Seen, Rare /lpf [facility] Nitrite Auto test strip Ql (U) Negative Negative [facility] pH (U) 6.0 [pH] [facility] Protein (U) [Mass/Vol] Negative Negative mg/dL [facility] RBC Auto (Urine sed) [#/Area] 1 [facility] Specific gravity (U) [Rel density] 1.011 [facility] Urobilinogen (U) [Mass/Vol] <2.0 <2.0 mg/dL [facility] WBC Auto (Urine sed) [#/Area] 75 High [facility] Microscopic examinat ion is performed on all urinalysis samples and only positive findings are reported. The test for blood on the chemical analytic portion of urinalysis may also be positive due to hemoglobinuria and myoglobinuria and if red blood cells are present they are quantified by microscopic examination. [facility] Urine Pregnancyon 05-13-2019 HCG ( test) Ql (U) Negative Negative [facility] Interpretation and review of laboratory results Normal [facility] CNOVon 10-18-2018 CNOV Office Visit (WOOB) --------ELIZABETH JARVIS ([id number]) 1995 [facility] Time Provider Yfzdoxbyna77/19/18 8:45 AM VANDANA MICHAEL ([facility]) WOOB During your visit today, we recorded the following information about you: Blood pressure Weight Last Period 98/60 96.2 kg 10/06/18Vandana Michael APRN.CNM 10/18/2018 9:43 AM Remi Mercado Bryant is a 23 year old female who presents for medication follow-upvisit for mood.HPI: Patient presents for medication follow-up visit today. Has been takingZoloft 25mg PO daily now for about 1 month. Patient reports she feels so muchbetter. 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 She reports she isbonding now very well with Mitch and that she feels the Zoloft is working, Ilove this stuff. Patient elected not to see counselor, [facility]. 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 Fpnsrles-Ak-Zbs-Fe-FA ( VITAMIN) tab Take 1 tablet by mouth.No current facility-administered medications for this visit.Allergies As of Date: 10/18/2018Allergen Noted ReactionNYSTATIN 02/19/2016 HivesFully Assessed 10/18/2018REVIEW OF SYSTEMSAbdomen: No bloating, early satiety, indigestion, or increased flatulence. Noabdominal pain, nausea, vomiting, diarrhea, or constipation.Bladder: No dysuria, gross hematuria, urinary frequency, urinary urgency, orincontinence.Breast: No breast lumps, nipple d/c, overlying skin changes, redness or skinretraction.Expanded ROS: PSYCH: Negative for sleep disturbance, mood disorder and recentpsychosocial stressors, See HPIAllergies and current medication updated:YesEXAM: BP 98/60 Wt 212 lb (96.2kg) LMP 10/06/2018GENERAL: pleasant, female in no apparent distressHEENT: Normocephalic, atraumatic, mucus membranes moist and no lesionsNECK: Supple, full range of motion, no adenopathy and thyroid normalDERMATOLOGY: Normal, without lesions, non-icteric and non-hirsuteBREAST: deferredCHEST: Normal inspiratory effortABDOMEN: DeferredPELVIC: deferredBIMANUAL: deferredNEURO: alert and oriented x3,exam grossly non-focalEXTREMITIES: normalASSESSMENT AND PLAN:Encounter Diagnosis ICD-10-CM1. mood disturbance O90.62. Encounter for long-term (current) use of medications Z79.8991) Continue Zoloft 25mg PO daily at this time, refill Rx for 1 year supply sentto listed pharmacy2) Anticipatory teaching re: mood, warning s/s discussed.3) RTC in 1 year for annual with pap smearRyanntclair Michael APRN.CNMReferring Provider: VANDANA MICHAEL ([facility]) [[id number]]Allergies As of Date: 10/18/2018 Noted Allergy ReactionNYSTATIN 02/19/2016 4 - HivesDate Reviewed: 10/18/2018Reviewed by: Alfreda Jones LPN - Fully AssessedReason for Visit: Follow Up [171]Primary Visit Diagnosis: mood disturbance [O90.6] Other Visit Diagnosis:Encounter for long-term (current) use of medications [Z79.899]Order(s):sertrali ne (ZOLOFT) 25 mg tabletTake 1 tablet by mouth once daily.Disp: 30 tabletRfl: 11Prescriptions as of 10/18/2018 Sig: NORELGESTROMIN 150 MCG-E.ESTR* Apply 1 Patch as directed onc* SERTRALINE 25 MG TABLET Take 1 tablet by mouth once d* FERROUS SULFATE 325 MG (65 MG* Take 325 mg by mouth daily wi* VITAMIN,CALCIUM,MINE* Take 1 tablet by mouth.Problem List As Of Date 10/18/2018 Noted Resolved Myopia [H52.10] INVALID FOR* Astigmatism, regular [H52.229] INVALID FOR* Congenital 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 Patient requested diagnostic testing [Z01.89] INVALID FOR*02/15/2018 More... Anemia complicating , third trimester *INVALID FOR*08/18/2018 More...Prescriptions ordered this encounter Disp Refills Start End SERTRALINE 25 MG TABLET 30 t* 11 10/18/2018 10/18/2019 Route: ORAL Sig: Take 1 tablet by mouth once daily.Medications Discontinued During This Encounter sertraline (ZOLOFT) 25 mg tablet 30 t* 0 09/25/2018 10/18/2018 Route: ORAL Sig: Take 1 tablet by mouth once daily. Disc: Reason for discontinue is not on file.Disposition: Return in about 1 year (around 10/18/2019), or if symptoms worsen or fail to improve.Follow-up and Disposition History RecordedEncounter Number: [id number] Status:Closed by VANDANA MICHAEL CNM on 10/18/18 [facility] PROGRESSon 10-18-2018 Protein mass conc HNO ID: [id number] thor: Vandana (Elena) Chuckyervice: (none)Author Type: MidwifeType: Progress NotesFiled: 10/18/2018 9:43 AMNote Text:Elizabeth Jarvis is a 23 year old female who presents for medicationfollow-up visit for mood.HPI: Patient presents for medication follow-up visit today. Has beentaking Zoloft 25mg PO daily now for about 1 month. Patient reports shefeels so much better. She has stopped working at her grandmother'[employer] as it got really slow and she wasn't making a lot of money.Now she is spending all time at home being a stay at home mother to dinh Mitch. She reports she is bonding now very well with Mitch and thatshe feels the Zoloft is working, I love this stuff. Patient elected notto see counselor, cancelled her appointments at the [facility]. 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 Wfnmhksm-Gu-Duj-Fe-FA ( VITAMIN) tab Take 1 tablet bymouth.No current facility-administered medications for this visit.Allergies As of Date: 10/18/2018Allergen Noted ReactionNYSTATIN 02/19/2016 HivesFully Assessed 10/18/2018REVIEW OF SYSTEMSAbdomen: No bloating, early satiety, indigestion, or increased flatulence.No abdominal pain, nausea, vomiting, diarrhea, or constipation.Bladder: No dysuria, gross hematuria, urinary frequency, urinary urgency,or incontinence.Breast: No breast lumps, nipple d/c, overlying skin changes, redness orskin retraction.Expanded ROS: PSYCH: Negative for sleep disturbance, mood disorder andrecent psychosocial stressors, See HPIAllergies and current medication updated:YesEXAM: BP 98/60 Wt 212 lb (96.2kg) LMP 10/06/2018GENERAL: pleasant, female in no apparent distressHEENT: Normocephalic, atraumatic, mucus membranes moist and no lesionsNECK: Supple, full range of motion, no adenopathy and thyroid normalDERMATOLOGY: Normal, without lesions, non-icteric and non-hirsuteBREAST: deferredCHEST: Normal inspiratory effortABDOMEN: DeferredPELVIC: deferredBIMANUAL: deferredNEURO: alert and oriented x3,exam grossly non-focalEXTREMITIES: normalASSESSMENT AND PLAN:Encounter Diagnosis ICD-10-CM1. mood disturbance O90.62. Encounter for long-term (current) use of medications Z79.8991) Continue Zoloft 25mg PO daily at this time, refill Rx for 1 year supplysent to listed pharmacy2) Anticipatory teaching re: mood, warning s/s discussed.3) RTC in 1 year for annual with pap smearROBSON Moore [facility] [place]OVon 09-28-2018 CNOV Office Visit (WOOB) --------ELIZABETH JARVIS ([id number]) 1995 F[address] Time Provider Iketborezu37/29/18 9:30 AM VANDANA MICHAEL ([facility]) WOOB During your visit today, we recorded the following information about you: Blood pressure Weight Last Period 112/72 97.5 kg 09/15/18Vandana Michael APRN.CNM 09/28/2018 12:49 PM Remi Mercado Bryant is a 23 year old female who presents for follow-up visit forpostpartum depression.HPI: Patient presents with today for follow-up visit to check-in onpostpartum mood. Patient was started on Zoloft 25mg PO daily, took first doseyesterday. 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 She notes that work has been hectic and that she isworking a lot of hours. Continues to deny SI/HI. Reports slight improvement inrelationship with and in bonding with her baby. 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 Zaacwzdl-Yb-Sof-Fe-FA ( VITAMIN) tab Take 1 tablet by mouth.ferrous sulfate (IRON) 325 mg (65 mg iron) tablet Take 325 mg by mouth dailywith breakfast.No current facility-administered medications for this visit.Allergies As of Date: 09/28/2018Allindiana Noted ReactionNYSTATIN 02/19/2016 HivesFully Assessed 09/28/2018REVIEW OF SYSTEMSExpanded ROS: GENERAL: No weight loss, malaise or fevers, Negative for malaise,significant weight loss, fever, Positive for See HPIPSYCH: See HPIAllergies and current medication updated:YesEXAM: BP 112/72 Wt 215 lb (97.5kg) LMP 09/15/2018GENERAL: pleasant, female in no apparent distressHEENT: Normocephalic, atraumatic, mucus membranes moist and no lesionsNECK: Supple, full range of motion, no adenopathy and thyroid normalDERMATOLOGY: Normal, without lesions, non-icteric and non-hirsuteBREAST: deferredCHEST: Normal inspiratory effortABDOMEN: DeferredPELVIC: deferredBIMANUAL: deferredNEURO: alert and oriented x3,exam grossly non-focalEXTREMITIES: normalASSESSMENT AND PLAN:Encounter Diagnosis ICD-10-CM1. mood disturbance O90.61) Continue Zoloft 25mg PO at this time - consider increasing to 50mg PO dailyif symptoms not resolved in 1-2 weeks.2) RTC in 3 weeks for next follow-up visit3) Continue counseling as planned4) Coping strategies again reviewed with patientCyntclair Michael APRN.CNMReferring Provider: VANDANA MICHAEL) [[id number]]Allergies As of Date: 09/28/2018 Noted Allergy ReactionNYSTATIN 02/19/2016 4 - HivesDate Reviewed: 09/28/2018Reviewed by: Latoya Begum Ma - Fully AssessedReason for Visit: Medication Follow-up [270] Cmt: Zoloft-PP DepressionPrimary Visit Diagnosis: mood disturbance [O90.6]Prescriptions as of 09/28/2018 Sig: SERTRALINE 25 MG TABLET Take 1 tablet by mouth once d* NORELGESTROMIN 150 MCG-E.ESTR* Apply 1 Patch as directed onc* VITAMIN,CALCIUM,MINE* Take 1 tablet by mouth. 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 Patient requested diagnostic testing [Z01.89] INVALID FOR*02/15/2018 More... Anemia complicating , third trimester *INVALID FOR*08/18/2018 More...Disposition: Return in about 3 weeks (around 10/19/2018), or if symptoms worsen or fail to improve.Follow-up and Disposition History RecordedEncounter Number: [id number] Status:Closed by VANDANA MICHAEL CNM on 09/28/18 [facility]on 09-28-2018 Protein mass conc HNO ID: [id number] thor: Vandana Cook) CliffordonService: (none)Author Type: MidwifeType: Progress NotesFiled: 09/28/2018 12:49 PMNote Text:Elizabeth Jarvis is a 23 year old female who presents for follow-up visitfor depression.HPI: Patient presents with today for follow-up visit to check-inon mood. Patient was started on Zoloft 25mg PO daily, tookfirst dose yesterday. 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 She notes that work hasbeen hectic and that she is working a lot of hours. Continues to denySI/HI. Reports slight improvement in relationship with and inbonding with her baby. 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 Yscwtqiq-Sx-Ebk-Fe-FA ( VITAMIN) tab Take 1 tablet bymouth.ferrous sulfate (IRON) 325 mg (65 mg iron) tablet Take 325 mg by mouthdaily with breakfast.No current facility-administered medications for this visit.Allergies As of Date: 09/28/2018Allergen Noted ReactionNYSTATIN 02/19/2016 HivesFully Assessed 09/28/2018REVIEW OF SYSTEMSExpanded ROS: GENERAL: No weight loss, malaise or fevers, Negative formalaise, significant weight loss, fever, Positive for See HPIPSYCH: See HPIAllergies and current medication updated:YesEXAM: BP 112/72 Wt 215 lb (97.5kg) LMP 09/15/2018GENERAL: pleasant, female in no apparent distressHEENT: Normocephalic, atraumatic, mucus membranes moist and no lesionsNECK: Supple, full range of motion, no adenopathy and thyroid normalDERMATOLOGY: Normal, without lesions, non-icteric and non-hirsuteBREAST: deferredCHEST: Normal inspiratory effortABDOMEN: DeferredPELVIC: deferredBIMANUAL: deferredNEURO: alert and oriented x3,exam grossly non-focalEXTREMITIES: normalASSESSMENT AND PLAN:Encounter Diagnosis ICD-10-CM1. mood disturbance O90.61) Continue Zoloft 25mg PO at this time - consider increasing to 50mg POdaily if symptoms not resolved in 1-2 weeks.2) RTC in 3 weeks for next follow-up visit3) Continue counseling as planned4) Coping strategies again reviewed with patientROBSON Moore [facility] [place]OVon 09-19-[facility] CNOV Office Visit ([facility]OO[facility]) --------ELIZABETH JARVIS ([id number]) 1995 [facility] Time Provider Yxihcclpkk51/20/18 1:30 PM VANDANA MICHAEL ([place]) [place]OO[facility] During your visit today, we recorded the following information about you: Blood pressure Weight 118/74 98.2 kgVandana Michael APRN.CNM 09/20/2018 9:57 AM Remi Mercado Bryant is a 23 year old female who presents for problem visitreporting increased feelings of impaired bonding with baby, increasedirritability and anhedonia for 2 week(s).HPI: Patient presents for visit at the request of her today. Patientreports she has had progressively felt detached from - she has feelingsof excitement coming home and seeing but after only holding for afew minutes she is happy to pass the baby on to someone else to hold. Patientreports baby is sleeping well throughout the night and tolerating formula well;patient reports her son is a good baby. At times though she has beenangry and lashed out at , she reports yelling and tossing objects infrustration. Patient reports minimal stress in marriage, denies trauma/abuse.Financial stress reported - patient and are filing for bankruptcy.Reports is supportive in taking care of child and that he activelyparticipates in childcare duties. Patient reports feeling supported by him andher family. Patient reports that she is working a lot at her grandmother'[employer]. She has little interest in exercising at gym or going on walks likeshe used to do. Patient also reports intrusive thoughts - thoughts of whatwould happen to baby if [she] or catastrophic events like getting in acar accident, being paralyzed or dying from a terminal illness. 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 Csrckukw-Pv-Jqv-Fe-FA ( VITAMIN) tab Take 1 tablet by mouth.No current facility-administered medications for this visit.Allergies As of Date: 09/19/2018Allergen Noted ReactionNYSTATIN 02/19/2016 HivesFully Assessed 08/18/2018REVIEW OF SYSTEMSAbdomen: No bloating, early satiety, indigestion, or increased flatulence. Noabdominal pain, nausea, vomiting, diarrhea, or constipation.Bladder: No dysuria, gross hematuria, urinary frequency, urinary urgency, orincontinence.Breast: No breast lumps, nipple d/c, overlying skin changes, redness or skinretraction.Expanded ROS: PSYCH: sleep fragmented, Negative for SI/HI, Positive fordepression: reports decreased desire to leave house, exercise, meet withfriends., anxiety: mild agoraphobia at times noted., severe psychosocialstressors: patient reports she and recently filed for bankruptancy. andfinancial difficulties where patient has had to return to work 2 weekspostpartum, See HPIAllergies and current medication updated:YesEXAM: BP 118/74 Wt 216 lb 6.4 oz (98.2kg)GENERAL: pleasant, female in no apparent distress, flat affect -rarely smiles. Appearance slightly disheveled.HEENT: Normocephalic, atraumatic, mucus membranes moist and no lesionsNECK: Supple, full range of motion, no adenopathy and thyroid normalDERMATOLOGY: Normal, without lesions, non-icteric and non-hirsuteBREAST: deferredCHEST: Normal inspiratory effortABDOMEN: DeferredPELVIC: deferredBIMANUAL: deferredNEURO: alert and oriented x3,exam grossly non-focalEXTREMITIES: normalASSESSMENT AND PLAN:Encounter Diagnosis ICD-10-CM1. mood disturbance O90.61) Discussion re: initiation of antidepressant medication - options discussed,advantages/disad vantages discussed. At times it may take up to 3-4 weeks forpatient to start to feel mood improve. At this time, patient declinesmedication initiation.2) [facility] Encourage self-care - exercise (walking), meditation, quiet thought4) RTC in 1 week for follow-up visit.Vandana Michael APRN.CNMReferring Provider: SELF [[id number]]Allergies As of Date: 09/19/2018 Noted Allergy ReactionNYSTATIN 02/19/2016 4 - HivesDate Reviewed: 09/19/2018Reviewed by: Li Tam Ma - Fully AssessedPrimary Visit Diagnosis: mood disturbance [O90.6]Prescriptions as of 09/19/2018 Sig: NORELGESTROMIN 150 MCG-E.ESTR* Apply 1 Patch as directed onc* FERROUS SULFATE 325 MG (65 MG* Take 325 mg by mouth daily wi* VITAMIN,CALCIUM,MINE* Take 1 tablet by mouth.Problem List As Of Date 09/19/2018 Noted Resolved Myopia [H52.10] INVALID FOR* Astigmatism, regular [H52.229] INVALID FOR* Congenital 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 Patient requested diagnostic testing [Z01.89] INVALID FOR*02/15/2018 More... Anemia complicating , third trimester *INVALID FOR*08/18/2018 More...Disposition: Return in about 1 week (around 09/26/2018), or if symptoms worsen or fail to improve.Follow-up and Disposition History RecordedEncounter Number: [id number] Status:Closed by VANDANA MICHAEL CNM on 09/20/18 [facility] PROGRESSon 09-19-2018 Protein mass conc HNO ID: [id number] thor: Vandana (Elena) MasonService: (none)Author Type: MidwifeType: Progress NotesFiled: 09/20/2018 9:57 AMNote Text:Elizabeth Jarvis is a 23 year old female who presents for problem visitreporting increased feelings of impaired bonding with baby, increasedirritability and anhedonia for 2 week(s).HPI: Patient presents for visit at the request of her today.Patient reports she has had progressively felt detached from infant - shehas feelings of excitement coming home and seeing but after onlyholding infant for a few minutes she is happy to pass the baby on tosomeone else to hold. Patient reports baby is sleeping well throughoutthe night and tolerating formula well; patient reports her son gabriela good baby. At times though she has been angry and lashed out athusband, she reports yelling and tossing objects in frustration. Patientreports minimal stress in marriage, denies trauma/abuse. Financial stressreported - patient and are filing for bankruptcy. Reports husbandis supportive in taking care of child and that he actively participates inchildcare duties. 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 She has little interest in exercising at gym or going on walkslike she used to do. Patient also reports intrusive thoughts - thoughts ofwhat would happen to baby if [she] or catastrophic events likegetting in a car accident, being paralyzed or dying from a terminalillness. 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 Ogrirxsa-Ra-Vbe-Fe-FA ( VITAMIN) tab Take 1 tablet bymouth.No current facility-administered medications for this visit.Allergies As of Date: 09/19/2018Allergen Noted ReactionNYSTATIN 02/19/2016 HivesFully Assessed 08/18/2018REVIEW OF SYSTEMSAbdomen: No bloating, early satiety, indigestion, or increased flatulence.No abdominal pain, nausea, vomiting, diarrhea, or constipation.Bladder: No dysuria, gross hematuria, urinary frequency, urinary urgency,or incontinence.Breast: No breast lumps, nipple d/c, overlying skin changes, redness orskin retraction.Expanded ROS: PSYCH: sleep fragmented, Negative for SI/HI, Positive fordepression: reports decreased desire to leave house, exercise, meet withfriends., anxiety: mild agoraphobia at times noted., severe psychosocialstressors: patient reports she and recently filed forbankruptancy. and financial difficulties where patient has had to returnto work 2 weeks , See HPIAllergies and current medication updated:YesEXAM: BP 118/74 Wt 216 lb 6.4 oz (98.2kg)GENERAL: pleasant, female in no apparent distress, flat affect -rarely smiles. Appearance slightly disheveled.HEENT: Normocephalic, atraumatic, mucus membranes moist and no lesionsNECK: Supple, full range of motion, no adenopathy and thyroid normalDERMATOLOGY: Normal, without lesions, non-icteric and non-hirsuteBREAST: deferredCHEST: Normal inspiratory effortABDOMEN: DeferredPELVIC: deferredBIMANUAL: deferredNEURO: alert and oriented x3,exam grossly non-focalEXTREMITIES: normalASSESSMENT AND PLAN:Encounter Diagnosis ICD-10-CM1. mood disturbance O90.61) Discussion re: initiation of antidepressant medication - optionsdiscussed, advantages/disadvantages discussed. At times it may take up to3-4 weeks for patient to start to feel mood improve. At this time, patientdeclines medication initiation.2) Patient scheduled by our office for visit with [facility] on Tuesday) Encourage self-care - exercise (walking), meditation, quiet thought4) RTC in 1 week for follow-up visit.Vandana Michael APRN.ELENA Normal [facility] PROGRESSon 08-18-2018 Protein mass conc HNO ID: [id number] thor: Vandana Cook) Chuckyervice: (none)Author Type: MidwifeType: Progress NotesFiled: 08/18/2018 10:32 AMNote Text: VISITObstetric History T1 L1 SAB0 TAB0 Ectopic0 Multiple0 Live Dndrfg0Exqc of Baby 1: Mitch Date: 07/08/18 GA: 41w1d Delivery: , LowTransverse Apgar1: Not recorded Apgar5: Not recorded Living: Sabrina Jarvis is a 23 year old year old here for postpartumvisit.Delivery Summary:LTCS for intolerance to laborPostpartum Recovery:Feeding: Bottle feedingBreastfeeding problems: NoneMenses since delivery: Resumed - just started last nightMenstrual pattern prior to : Regular periodsIntercourse since delivery: Not resumedDepression: denies symptoms of depression. See depressionscreening tab.Emotional support: Yes, is supportive and involved.Bowel symptoms: Negative for abdominal discomfort, blood in stools orblack stools and change in bowel habitsBladder symptoms: No dysuria, gross hematuria, urinary frequency, urinaryurgency, or incontinenceOther issues: NoneLast Pap: Never? Patient reports [facility]normal HPV: N/APAST MEDICAL HISTORYDiagnosis Date- Anemia complicating , third trimester 04/11/2018- TraumaPAST SURGICAL HISTORYProcedure Laterality Date- DELIVERY ONLY 07/08/2018 C/S low transverse- REPAIR FRACTURE RADIUS/ULNA 2002 playground accident- TONSILLECTOMY HXFAMILY HISTORYProblem Relation Age of Onset- Diabetes Maternal Grandmother- Heart Maternal Grandmother- Hypertension Maternal Grandmother- Cancer Paternal GrandfatherSOCIAL HISTORY Social History Marital status: Spouse name: Amrit Years of education: 14 Number of children: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[employer]*Social History Main Topics Smoking status: Never Smoker Smokeless tobacco: Never Used Alcohol use: No Drug use: No Sexual activity: Yes Partners with: MalePHYSICAL EXAMINATION:BP 104/60 Wt 222 lb 3.2 oz (100.8kg) LMP 09/23/2017GENERAL: pleasant, female in no apparent distressHEENT: Normocephalic, atraumatic, mucus membranes moist and no lesionsNECK: Supple, full range of motion, no adenopathy and thyroid normalDERMATOLOGY: Normal, without lesions, non-icteric and non-hirsuteBREAST: soft, non-tender, symmetric, no dominant mass, normalnipple-areolar complex, no lymphadenopathy and no nipple dischargeCHEST: Normal inspiratory effortABDOMEN: soft, non-tender and no masses. No incisional redness, swelling,or drainage.PELVIC: external genitalia normal, normal Bartholin's glands, urethra,Gateway's glands, no vulvar lesions, no cervical lesions, good vaginalsupport, normal appearing perineal body and perianal region, abnormaldischarge heavy red bleeding c/w menses. Unable to do pap today.BIMANUAL: deferredNEURO: alert and oriented x3,exam grossly non-focalEXTREMITIES: normalASSESSMENT AND PLAN:23 year old status post CS with normal course.Contraception plan: contraceptive Patch - may be interested in Mirena infuturePatient is now 23, will need pap smearFollow up: RTC for annual exams and PRN, RTC for BP check and pap smear in3 monthsCyparmjit Michael APRN.CNM Normal [facility] CNOVon 07-17-2018 CNOV Office Visit (WOOB) --------ELIZABETH JARVIS ([id number]) 1995 [facility] Time Provider Department07/17/18 9:45 AM JARRETT BAUER During your visit today, we recorded the following information about you: Blood pressure Weight 116/70 102.5 kgJarrett Bauer MD 07/17/2018 12:22 PM Remi Mercado Bryant is a 23 year old female who presents for incision check and 1week visit.HPI:Had PLTCS on 07/08/18 for intolerance to labor.Doing well. No complaints today. Silver dressing in place. She is bottlefeeding. Baby has seen feed research technician and doing well. No intercourse sincedelivery. Bleeding is light. Good support at home and mood stable. Deniesfevers, chills, CP, SOB, uncontrolled pain. Voiding without difficulty. 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 Vysptibr-Hn-Gzx-Fe-FA ( VITAMIN) tab Take 1 tablet by mouth.No current facility-administered medications for this visit.Allergies As of Date: 07/17/2018Allergen Noted ReactionNYSTATIN 02/19/2016 HivesFully Assessed 07/17/2018REVIEW OF SYSTEMSAbdomen: No abdominal pain, nausea, vomiting, diarrhea, or constipation.Bladder: No dysuria, gross hematuria, urinary frequency, urinary urgency, orincontinence.Expanded ROS: N/AAllergies and current medication updated:YesEXAM: BP 116/70 Wt 226 lb (102.5kg)GENERAL: pleasant, female in no apparent distressHEENT: Normocephalic and atraumaticNECK: full range of motionDERMATOLOGY: Normal and without lesionsCHEST: Normal inspiratory effortABDOMEN: soft, non-tender and no massesINCISION: C/D/I, silver dressing and steri strips removed, no erythema, noswelling, no drainageNEURO: alert and oriented x3,exam grossly non-focalEXTREMITIES: normalASSESSMENT AND PLAN:Encounter Diagnosis ICD-10-CM1. Status post delivery Z98.891? Dressing and steri's removed, incision c/d/i, healing well? Doing well ? Discussed abstinence until control. She would like to use the patch.Will not start today given risk of DVT/PE in immediate period. Notbreastfeeding? 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 Patient requested diagnostic testing [Z01.89] INVALID FOR*02/15/2018 More... Anemia complicating , third trimester *INVALID FOR* More...LOS history recordedFollow-up and Disposition History RecordedEncounter Number: [id number] Status:Closed by JARRETT BAUER MD on 07/17/18 Normal [facility] PROGRESSon 07-17-2018 Protein mass conc HNO ID: [id number] thor: Jarrett BauerSer: (none)Author Type: PhysicianType: Progress NotesFiled: 07/17/2018 12:22 PMNote Text:Elizabeth Jarvis is a 23 year old female who presents for incision checkand 1 week visit.HPI:Had PLTCS on 07/08/18 for intolerance to labor.Doing well. No complaints today. Silver dressing in place. She is bottlefeeding. Baby has seen feed research technician and doing well. No intercourse sincedelivery. Bleeding is light. Good support at home and mood stable. Deniesfevers, chills, CP, SOB, uncontrolled pain. Voiding without difficulty.Had some constipation, took stool softeners, regular BM's now.PAST MEDICAL HISTORYDiagnosis Date- Anemia complicating , third trimester 04/11/2018- TraumaPAST SURGICAL HISTORYProcedure Laterality Date- DELIVERY ONLY 07/08/2018 C/S low transverse- REPAIR FRACTURE RADIUS/ULNA 2002 playground accident- TONSILLECTOMY HXFAMILY HISTORYProblem Relation Age of Onset- Diabetes Maternal Grandmother- Heart Maternal Grandmother- Hypertension Maternal Grandmother- Cancer Paternal GrandfatherSocial History Marital status: Spouse name: Amrit Years of education: 14 Number of children: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 Vftenmfm-Ms-Snc-Fe-FA ( VITAMIN) tab Take 1 tablet bymouth.No current facility-administered medications for this visit.Allergies As of Date: 07/17/2018Allergen Noted ReactionNYSTATIN 02/19/2016 HivesFully Assessed 07/17/2018REVIEW OF SYSTEMSAbdomen: No abdominal pain, nausea, vomiting, diarrhea, or constipation.Bladder: No dysuria, gross hematuria, urinary frequency, urinary urgency,or incontinence.Expanded ROS: N/AAllergies and current medication updated:YesEXAM: BP 116/70 Wt 226 lb (102.5kg)GENERAL: pleasant, female in no apparent distressHEENT: Normocephalic and atraumaticNECK: full range of motionDERMATOLOGY: Normal and without lesionsCHEST: Normal inspiratory effortABDOMEN: soft, non-tender and no massesINCISION: C/D/I, silver dressing and steri strips removed, no erythema, noswelling, no drainageNEURO: alert and oriented x3,exam grossly non-focalEXTREMITIES: normalASSESSMENT AND PLAN:Encounter Diagnosis ICD-10-CM1. Status post delivery Z98.891? Dressing and steri's removed, incision c/d/i, healing well? Doing well ? Discussed abstinence until control. She would like to use thepatch. Will not start today given risk of DVT/PE in immediate postpartumperiod. Not ? Keep schedule appintment on 08/18/18julienne Bauer DO Normal [facility] Discharge Summaryon 07-14-20 [facility]charge [facility] [id number] BOBBI ROBERTS [id number] Xtbvcdt93/14/18 1347MR#: [id number] Acct: [id number]: ELIZABETH JARVIS Rep #: [id number]: 1995 23 From: Jarrett Bauer DOPCP: OUT OF TOWN DOCTOR Status: DIS IN YLocation: WP [id number] SummaryDate of Admission: 07/07/18Date of Discharge: 07/10/18ummary:Patient is a 23 y/o who presented at 41w0d in active labor. Progressed to 8-9 cm dilated.Had a PLTCS for intolerance to labor. course was uncomplicated. Dischargedhome on post-op day #2 in good condition. She was tolerating a regular diet, voiding,ambulating without difficulty, and pain was well controlled. She was undecided on birthcontrol.07/14/18 1352 Date Jarrett Bauer DOCosigner Signature (if applicable): Date CC: OUT OF TOWN DOCTOR; Jarrett Bauer DO Signed Normal [facility] HOSPon 07-12-2018 HOSP Patient Update (WOOB) --------ELIZABETH JARVIS ([id number]) 1995 FDate Time Provider Department07/12/18 JARRETT BAUER During your visit today, we recorded the following information about you:Melissa Miguel Ángel FRYE 07/12/2018 1:58 PM SignedPt delivered via C/S at [facility] on 07/08/[address] Bauer. 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 Patient requested diagnostic testing [Z01.89] INVALID FOR*02/15/2018 More... Anemia complicating , third trimester *INVALID FOR* More... Status:Closed by MELISSA DEL ROSARIO LPN on 07/12/18 Normal [facility] PROGRESSon 07-12-2018 Protein mass conc HNO ID: [id number] Author: Melissa Del Rosario LPN Service: (none) Author Type: (none) Type: Progress Notes Filed: 07/12/2018 1:58 PM Note Text: Pt delivered via C/S at [facility] on 07/08/[address] Bauer. See OB Outcome note. Melissa Del Rosario LPN Normal [facility] Discharge Instructionon 07-01 [facility]charge [facility] [id number] [place], [place] [address]Gwmdkphlkkje for Home/Discharge Dhzpfyhuqnuj25/10/18 0803MR#: [id number] Acct: [id number]: ELIZABETH JARVIS Rep #: [id number]: 1995 23 From: Jarrett Bauer DOPCP: OUT OF TOWN DOCTOR Status: ADM INDischarge Diet: No RestrictionsDischarge Activity: May not drive while taking narcotic pain medications., May ShowerMay resume sexual activity in: 6 weeksLifting Restrictions: No heavy lifting greater than 20 lbsCall your doctor if your incision/area has: Increased Pain/ Swelling, Increased Redness, FoulSmelling Discharge, Swelling at the incision siteCall your doctor if you observe: Fever of 101 or Higher, Inability to urinate, Inability tohave a bowel movement, Using more than one pad per hour, Shortness of breath, Dizziness, Chestpain, Calf discomfort, Uncontrolled painRemove Dressing in (days):: 7Additional Instructions:If you experience any of the following, contact your healthcare provider.* Bleeding that soaks a pad every hour for 2 hours* Fever 100.4 or higher* Unrelieved incision or abdominal pain* Swelling, redness, discharge or bleeding from your incision or episiotomy site* Your incision begins to separate* Problems urinating (including inability to urinate or burning while urinating).* Visual changes* Severe headache* Flu-like symptoms* Pain or redness in one of both of your breasts* Pain, warmth, tenderness or swelling in your legs, especially the calf area* Frequent nausea and vomiting* Symptoms of depression or anxietyIf you experience any of the following, call 911 or go to the nearest Emergency Room.* Chest pain* Problems breathing* Seizure activity* Partial or complete paralysis of a body part, slurred speech, weakness or drooping of theface, or a sudden inability to walk or hold your balanceAllergies/Adverse Reactions:Allergiesnystati n Allergy (Mild, Verified 07/07/18 19:34)Rashlatex Allergy (Verified 07/08/18 03:26)RashMedications to take at DischargeFerrous Sulfate [Iron] 650 mg PO DAILY 07/07/18Prenatal Vits [Prenatabs FA ] 1 tab PO DAILY MDD one 07/07/18ollow-Up:Call to make an appointment with your doctor for an incision check in 1 week. You will alsoneed a 6 week post- follow up appointment.Test results from this visit will be discussed in further detail at your follow-up appointment,if applicable.Primary Care Physician:[facility] Doctor,Out of [Primary Care Provider] -Proposed Discharge Date: 07/10/1809805 Date Jarrett Lizette DOCC: OUT OF [facility] DOCTOR Normal [facility] CBC-Complete Blood Cnt No Di ffon 2018 Erythrocyte distribution width Auto Ratio (RBC) 13.1 % Normal 11.6-14.6 [facility] Comment on above: Order Comment: Comme nts: Day #1Reason for Laboratory Test Performed By: #### L 100.0500 ####[facility] [address] [place], [address] Hematocrit Auto Volume Fraction (Bld) 32.2 % Low 37-47 [facility] Comment on above: Order Comment: Comme nts: Day #1Reason for Laboratory Test Performed By: #### L 100.0500 ####[facility] [address] [place], [address] Hemoglobin mass conc (Bld) 10.7 g/dL Low 12.0-15.0 [facility] Comment on above: Order Comment: Comme nts: Day #1Reason for Laboratory Test Performed By: #### L 100.0500 ####[facility] [address] [place], [address] MCH Auto Entitic mass (RBC) 30.8 pg Normal 27.0-32.0 [facility] Comment on above: Order Comment: Comme nts: Day #1Reason for Laboratory Test Performed By: #### L 100.0500 ####[facility] [address] [place], [address] MCHC Auto mass conc (RBC) 33.2 g/gl Normal 32-36 [facility] Comment on above: Order Comment: Comme nts: Day #1Reason for Laboratory Test Performed By: #### L 100.0500 ####[facility] [address] [place], [address] MCV Auto Entitic volume (RBC) 92.8 fL Normal 81-99 [facility] Comment on above: Order Comment: Comme nts: Day #1Reason for Laboratory Test Performed By: #### L 100.0500 ####[facility] [address] [place], [address] Platelet mean volume Auto Entitic volume (Bld) 11.8 fL Normal 6.2-12.0 [facility] Comment on above: Order Comment: Comme nts: Day #1Reason for Laboratory Test Performed By: #### L 100.0500 ####[facility] [address] [place], [address] Platelets Auto #/vol (Bld) 195 10*3/uL Normal 150-450 [facility] Comment on above: Order Comment: Comme nts: Day #1Reason for Laboratory Test Performed By: #### L 100.0500 ####[facility] [address] [place], [address] RBC Auto #/vol (Bld) 3.47 M/mm3 Low 4.2-5.4 [facility] Comment on above: Order Comment: Comme nts: Day #1Reason for Laboratory Test Performed By: #### L 100.0500 ####[facility] [address] [place], [address] RDW SD 43.3 fl Normal 35.1-43.9 [facility] Comment on above: Order Comment: Comme nts: Day #1Reason for Laboratory Test Performed By: #### L 100.0500 ####[facility] [address] [place], [address] WBC Auto #/vol (Bld) 18.8 10*3/uL High 4.4-11.0 [facility] Comment on above: Order Comment: Comme nts: Day #1Reason for Laboratory Test Performed By: #### L 100.0500 ####[facility] [address] [place], [address] History and Physical Examon 07-08-2018 [facility] and Physical [facility] [id number] [place], [place] [address]Fryfyry and Anzxmjfp44/07/18 2044#: [id number] Acct: [id number]: ELIZABETH JARVIS Rogelio Rep #: [id number]: 1995 22 From: Vandana Michael CNMPCP: OUT OF TOWN DOCTOR Status: ADM IN YLocation: [id number] Problem List(1) Anemia affecting pregnancyStatus: AcuteQualifiers:Trimester: third trimester Qualified Code(s): O99.013 - Anemia complicating ,third trimesterHistoryDate of Admission: 07/07/18inal CHRISTOPHE: 06/30/18inal CHRISTOPHE Source: US <20 weeksGestational age: 41 Weeks and 0 DaysHistory of this :This is a 22 year-old, G [1], P [0], at 41 weeks gestational age by 1st trimester ultrasound,presenting to L+D for postdates IOL. Patient reports possible beginning of labor yesterday at6pm; ctx q 10-12 minutes apart and lasting 30 seconds long. Patient denies VB, LOF or DFM.Allergiesnystatin Allergy (Mild, Verified 07/07/18 19:34)RashHome Medications:Home MedicationsFerrous Sulfate [Iron] 650 mg PO DAILY 07/07/18Prenatal Vits [Prenatabs FA ] 1 tab PO DAILY MDD one 07/07/18moking Status: Never smokerAlcohol: NoneNumber of Fetus(es): 1Fetal Heart Tracing:Baseline 120, moderate variability, + accels, no decelsTOCO Analysis:Ctx q 10-15 minutes, irregularPrenatal HistoryPast Pregnancies:Past PregnanciesDelivery Name GA/Weeks Outcome Route WeiInfant GeLabor LenAnesthesiDelivery Provider FOBDate t nder [facility] a LocationPrenatal Labs:O+, Abs Neg, Rubella Immune, HIV NR, HepBsAg Neg, Syphilis Neg, H/H = 10.4/33.2 -->12/37.1, 1hour = 83 ,GBS Negative, Urine Tox = Neg, Urine culture = Neg, GC/CT = NEg/NegExpected Delivery Method: Spontaneous VaginalDescribe any other labor AND delivery plans:: Epidural desiredNumber of Visits: 16Review of SystemsConstitutional: Denies: Chills, Fever, Weight ChangeHEENT: Denies: Head Aches, Sinus Congestion, Sinus DrainageCardiovascular: Denies: Chest Pain, PalpitationsRespiratory: Denies: Cough, Shortness of breath at rest, Sputum productionGastrointestinal : Denies: Abdominal Pain, Nausea, VomitingGenitourinary: Denies: DysuriaMusculoskeletal: Denies: Joint Pain, Joint TendernessSkin: Denies: Rash, WoundsNeurological: Denies: Numbness, Tingling, Focal weaknessPsychiatric: Denies: Anxiety, Depression, Homicidal Ideations, Suicidal IdeationsHematologic/ Lymphatic: Denies: Easy Bruising, Easy BleedingPhysical ExamVitals:See nursing notes for vital signsGeneral: Alert, Oriented x3, No apparent distressHEENT: Atraumatic, Normocephalic. Negative for: Thyromegaly, LymphadenopathyCardiovascu lar: Regular rate, Regular RhythmAbdomen: Non Tender, Gravid, Appropriate for Gestational AgeNeurological: Deep Tendon Reflexes 2+/4 and Symmetrical, Neuro grossly intactGYN: Normal external genitalia. Negative for: Vulvar lesionsEstimated gestational size: Appropriate for gestational sizeFetal Presentation: CephalicCervix Dilation (cm): 3Station: -2Effacement (%): 60Assessment/PlanAll Active ProblemsAnemia affecting (Acute)This is a 22 year-old, G [1], P [0], at 41 weeks gestational age, IOL for Postdates, Category IFHT.P: 1) Admit patient - start IV heplock. Draw CBC, T+S.2) As patient may be in early labor at this time, will do expectant labor management3) If contractions space out or patient not in labor by morning, anticipate starting IV pitocinfor labor induction4) Dr. Bauer notified of admission and plan of care.Vandana Fernanda [employer]07/07/182116 Date Vandana Michael CN07/08/18 0811 Cosigner Signature: Date (if applicable) Jarrett Bauer DOCC: [facility] Vandana Michael; OUT OF TOWN DOCTOR; Jarrett Bauer DO Signed Normal [facility] Operative Reporton Operative Report [facility] [address] [facility] [place], [place] [address]Cjoixnavz Obldga20/08/18 1452#: [id number] Acct: [id number]: ELIZABETH JARVIS Rep #: [id number]: 1995 22 From: Jarrett Bauer DOPCP: OUT OF TOWN DOCTOR Status: ADM IN YLocation: [id number] List(1) intolerance to labor, delivered, current hospitalizationStatus: AcuteOperative ReportDate of Procedure: 07/08/18Preoperative diagnosis: 1 term intrauterine , 2 intolerance to laborPostoperative diagnosis: as aboveProcedure performed: primary low transverse section Via Pfannenstiel incisionAnesthesia: epiduralEstimated blood loss: 700 ccUrine output: 300 cc of clear yellow urineComplications: noneFindings: male in cephalic presentation. Normal uterus, tubes, and ovariesIndications the patient is a 22-year-old who presented at 41 weeks and 0 days gestationin active labor. She was having occasional variable decelerations throughout labor, but makingprogress. Internal monitors were placed and amnioinfusion was started. She progressed to 8-9cm. The heart tracing then began showing recurrent prolonged decelerations. Risks,benefits, and alternatives of a for intolerance to labor was discussed with thepatient. The patient was agreeable to a section.Procedure note: the patient was taken to the operating room where epidural anesthesia was foundto be adequate. The patient was prepped and draped in the usual sterile fashion in dorsalsupine position with a leftward tilt. Pfannenstiel skin incision was made with the scalpel andcarried through to the underlying layer fascia using the Bovie. The fascia was incised in themidline and extended laterally using Chris scissors. Raulito clamps were used to elevate thesuperior aspect of the fascial incision, and the underlying rectus muscles were dissected offbluntly and using Chris scissors, as well as the Bovie. Attention was then turned to theinferior aspect of the fascial incision, which in similar fashion was grasped with Kocherclamps and elevated. Then the underlying rectus muscles were dissected off bluntly and usingMayo scissors. The rectus muscles were in the midline. The peritoneum wasidentified and entered using Metzenbaum scissors. The incision was extended superiorly andinferiorly with good visualization of the bladder. The bladder blade was inserted the loweruterine segment was incised in a transverse fashion using a scalpel and extended bluntly. Theinfant was noted to be in vertex position and delivered without difficulty. The cord wasclamped and cut after 60 seconds and the infant was handed off. The placenta was deliveredwith manual extraction and intact. The uterus was exteriorized and cleared of all clot anddebris. The uterine incision was repaired in 2 layers using Vicryl. Hemostasis was noted.The uterus was then placed back in the abdomen. Hemostasis was again noted, and Arrista wasplaced over the uterine incision. The peritoneum was reapproximated in the midline usingVicryl. The fascia was closed with Vicryl. The subcutaneous layer was closed with Vicryl.The skin was closed in subcuticular fashion. Sponge, lap, instrument, needle counts werecorrect 2. The patient was stable at the completion of the procedure and was taken to therecovery room in stable condition.07/08/18 1501 Date Jarrett Bauer DOCC: OUT OF TOWN DOCTOR; Jarrett Bauer, DO Signed Normal [facility] Type AND Screenon 07-08-2018 Antibody Screen Negative Normal [facility] Comment on above: Order Comment: Reaso n for Type AND Screen/Red Cells: ROUTINE Performed By: #### B 101.7450 ####[facility] [address] [place], [address] BLOOD TYPE GEL Positive Normal [facility] Comment on above: Order Comment: Reaso n for Type AND Screen/Red Cells: ROUTINE Performed By: #### B 101.7450 ####[facility] [address] [place], [address] CBC-Complete Blood Cnt No Di ffon 07-07-2018 Erythrocyte distribution width Auto Ratio (RBC) 13.4 % Normal 11.6-14.6 [facility] Comment on above: Performed By: #### L 100.0500 ####[facility] [address] [place], [address] Hematocrit Auto Volume Fraction (Bld) 35.3 % Low 37-47 [facility] Comment on above: Performed By: #### L 100.0500 ####[facility] [address] [place], [address] Hemoglobin mass conc (Bld) 11.7 g/dL Low 12.0-15.0 [facility] Comment on above: Performed By: #### L 100.0500 ####[facility] [address] [place], [address] MCH Auto Entitic mass (RBC) 30.1 pg Normal 27.0-32.0 [facility] Comment on above: Performed By: #### L 100.0500 ####[facility] [address] [place], [address] MCHC Auto mass conc (RBC) 33.1 g/gl Normal 32-36 [facility] Comment on above: Performed By: #### L 100.0500 ####[facility] [address] [place], [address] MCV Auto Entitic volume (RBC) 90.7 fL Normal 81-99 [facility] Comment on above: Performed By: #### L 100.0500 ####[facility] [address] [place], [address] Platelet mean volume Auto Entitic volume (Bld) 11.2 fL Normal 6.2-12.0 [facility] Comment on above: Performed By: #### L 100.0500 ####[facility] [address] [place], [address] Platelets Auto #/vol (Bld) 197 10*3/uL Normal 150-450 [facility] Comment on above: Performed By: #### L 100.0500 ####[facility] [address] [place], [address] RBC Auto #/vol (Bld) 3.89 M/mm3 Low 4.2-5.4 [facility] Comment on above: Performed By: #### L 100.0500 ####[facility] [address] [place], [address] RDW SD 44.0 fl High 35.1-43.9 [facility] Comment on above: Performed By: #### L 100.0500 ####[facility] [address] [place], [address] WBC Auto #/vol (Bld) 11.5 10*3/uL High 4.4-11.0 [facility] Comment on above: Performed By: #### L 100.0500 ####[facility] [address] [place], [address] CBC and Differentialon 06-16 Abs Baso 0.00 k/uL Normal <0.11 [facility] Comment on above: Performed By: #### C BCDIF ####[place] [address] [place] [phone] Abs [place] 0.52 k/uL Normal <0.87 [facility] Comment on above: Performed By: #### C BCDIF ####[place] [phone] Abs Neut 11.55 k/uL High 1.45-7.50 [facility] Comment on above: Performed By: #### C BCDIF ####[place] [address] [place] [phone] Basophils/100 WBC Auto (Bld) 0.0 % Normal [facility] Comment on above: Performed By: #### C BCDIF ####[place] [phone] DTYPE Manual Diff Normal [facility] Comment on above: Performed By: #### C BCDIF ####[place] [address] [place] [phone] Eosinophils Auto #/vol (Bld) 0.00 10*3/uL Normal <0.46 [facility] Comment on above: Performed By: #### C BCDIF ####[place] [address] [place] [phone] Eosinophils/100 WBC Auto (Bld) 0.0 % Normal [facility] Comment on above: Performed By: #### C BCDIF ####[place] [address] [place] [phone] Erythrocyte distribution width Auto Ratio (RBC) 13.6 % Normal 11.5-15.0 [facility] Comment on above: Performed By: #### C BCDIF ####[place] [phone] Hematocrit Auto Volume Fraction (Bld) 37.1 % Normal 36.0-46.0 [facility] Comment on above: Performed By: #### C BCDIF ####[place] [address] [place] [place] [phone] Hemoglobin mass conc (Bld) 12.0 g/dL Normal 11.5-15.5 [facility] Comment on above: Performed By: #### C BCDIF ####[address] [place] [place] [phone] Lymphocytes Auto #/vol (Bld) 2.21 10*3/uL Normal 1.00-4.00 [facility] Comment on above: Performed By: #### C BCDIF ####[place] [phone] Lymphocytes/100 WBC Auto (Bld) 15.2 % Normal [facility] Comment on above: Performed By: #### C BCDIF ####[address] [place] [phone] MCH Auto Entitic mass (RBC) 31.3 pG Normal 26.0-34.0 [facility] Comment on above: Performed By: #### C BCDIF ####[address] [phone] MCHC Auto mass conc (RBC) 32.3 g/dL Normal 30.5-36.0 [facility] Comment on above: Performed By: #### C BCDIF ####[place] [address] [address] [place] [phone] MCV Auto Entitic volume (RBC) 96.9 fL Normal 80.0-100.0 [facility] Comment on above: Performed By: #### C BCDIF ####[place] [address] [address] [phone] [place]% 0.9 % Normal [facility] Comment on above: Performed By: #### C BCDIF ####[facility], [place] [phone] Monocytes/100 WBC Auto (Bld) 3.6 % Normal [facility] Comment on above: Performed By: #### C BCDIF ####[place] [address] [address], [place] [phone] Myelo% 0.9 % Normal [facility] Comment on above: Performed By: #### C BCDIF ####[place] [address] [address], [place] [phone] Neutrophils/100 WBC Auto (Bld) 79.4 % Normal [facility] Comment on above: Performed By: #### C BCDIF ####[place] [address] [address], [place] [phone] Platelet mean volume Auto Entitic volume (Bld) 11.4 fL Normal 9.0-12.7 [facility] Comment on above: Performed By: #### C BCDIF ####[place] [address] [address] [phone] Platelets Auto #/vol (Bld) Platelet estimate adequate Normal [facility] Comment on above: Performed By: #### C BCDIF ####[place] [address] [address] [phone] Platelets Auto #/vol (Bld) 221 10*3/uL Normal 150-400 [facility] Comment on above: Performed By: #### C BCDIF ####[place] [address] [address], [place] [phone] RBC Auto #/vol (Bld) 3.83 10*6/uL Low 3.90-5.20 [facility] Comment on above: Performed By: #### C BCDIF ####[place] [address] [address], [place] [phone] Red Cell Morph SEE COMMENT Normal [facility] Comment on above: Result Comment: Unre markable Performed By: #### C BCDIF ####[place] [address] [place], [place] [phone] Thyrotropin Qn Present Normal [facility] Comment on above: Performed By: #### C BCDIF ####[address] [phone] WBC Auto #/vol (Bld) 14.55 10*3/uL High 3.70-11.00 [facility] Comment on above: Performed By: #### C BCDIF ####[place] [id number] [place], [place] [phone] (ROM) Rupture Of Membraneson 06-06-2018 ROM Negative Normal Negative [facility] Comment on above: Result Comment: Amni otic fluid not present indicates No Rupture of FetalMembranes at time of specimen collection. Performed By: #### L 205.1000 ####[facility] [address] [place], [address] Urinalysis, Completeon 06-06 BACTERIA 1+ /hpf Normal None Seen [facility] Comment on above: Order Comment: How w as Urine Obtained? LINOTYPE WORKER TO SPECIFY Performed By: #### L 400.0001 ####[facility] [address] [place], [address] MUCUS, URINE 0 SEEN Normal [facility] Comment on above: Order Comment: How w as Urine Obtained? LINOTYPE WORKER TO SPECIFY Performed By: #### L 400.0001 ####[facility] [address] [place], [address] RBC Test strip #/vol (U) 0 SEEN Normal 0-5 [facility] Comment on above: Order Comment: How w as Urine Obtained? LINOTYPE WORKER TO SPECIFY Performed By: #### L 400.0001 ####[facility] [address] [place], [address] SQUAM EPI 0-5 SEEN Normal 5-10 [facility] Comment on above: Order Comment: How w as Urine Obtained? LINOTYPE WORKER TO SPECIFY Performed By: #### L 400.0001 ####[facility] [address] [place], [address] WBC 5-10 SEEN Normal 0-5 [facility] Comment on above: Order Comment: How w as Urine Obtained? LINOTYPE WORKER TO SPECIFY Performed By: #### L 400.0001 ####[facility] [address] [place], [address] BILIRUBIN URINE Negative Normal Negative [facility] Comment on above: Order Comment: How w as Urine Obtained? LINOTYPE WORKER TO SPECIFY Performed By: #### L 400.0001 ####[facility] [address] [place], [address] CLARITY Clear Normal Clear [facility] Comment on above: Order Comment: How w as Urine Obtained? LINOTYPE WORKER TO SPECIFY Performed By: #### L 400.0001 ####[facility] [address] [place], [address] COLOR Yellow Normal Yellow [facility] Comment on above: Order Comment: How w as Urine Obtained? LINOTYPE WORKER TO SPECIFY Performed By: #### L 400.0001 ####[facility] [address] [place], [address] GLUCOSE, UR Normal Normal Normal [facility] [facility] Comment on above: Order Comment: How w as Urine Obtained? LINOTYPE WORKER TO SPECIFY Performed By: #### L 400.0001 ####[facility] [address] [place], [address] KETONE UR Negative Normal Negative [facility] Comment on above: Order Comment: How w as Urine Obtained? LINOTYPE WORKER TO SPECIFY Performed By: #### L 400.0001 ####[facility] [address] [place], [address] LEUK ESTERASE 100 /ul High Negative [facility] Comment on above: Order Comment: How w as Urine Obtained? LINOTYPE WORKER TO SPECIFY Performed By: #### L 400.0001 ####[facility] [address] [place], [address] NITRITE UR Negative Normal Negative [facility] Comment on above: Order Comment: How w as Urine Obtained? LINOTYPE WORKER TO SPECIFY Performed By: #### L 400.0001 ####[facility] [address] [place], [address] OCCULT BLOOD-UR Negative Normal Negative [facility] Comment on above: Order Comment: How w as Urine Obtained? LINOTYPE WORKER TO SPECIFY Performed By: #### L 400.0001 ####[facility] [address] [place], [address] pH UR 7.0 Normal 5.0 - 8.0 [facility] Comment on above: Order Comment: How w as Urine Obtained? LINOTYPE WORKER TO SPECIFY Performed By: #### L 400.0001 ####[facility] [address] [place], [address] Protein mass conc Negative Normal Negative [facility] Comment on above: Order Comment: How w as Urine Obtained? LINOTYPE WORKER TO SPECIFY Performed By: #### L 400.0001 ####[facility] [address] [place], [address] SP.GR. DIPSTX 1.015 Normal 1.002-1.030 [facility] Comment on above: Order Comment: How w as Urine Obtained? LINOTYPE WORKER TO SPECIFY Performed By: #### L 400.0001 ####[facility] [address] [place], [address] UROBILI Normal Normal Normal [facility] Comment on above: Order Comment: How w as Urine Obtained? LINOTYPE WORKER TO SPECIFY Performed By: #### L 400.0001 ####[facility] [address] [place], [address] GROUP B STREP PCRon 08-03-20 18 GROUP B STREP PCR Negative Normal [facility] Comment on above: Performed By: #### G BPCR ####[facility] [place], [place] [phone] PROGRESSon 05-26-2018 Protein mass conc HNO ID: [id number] thor: Latoya Begum MaService: (none)Author Type: (none)Type: Progress NotesFiled: 05/26/2018 10:58 AMNote Text:Patient identified by name and date of .Elizabeth Jarvis presents today for a vaccination of Tdap.Patient denies an allergy to latex: yesPatient denies a severe (life-threatening) allergy to a previous dose ofTdap, DTP, DTaP, DT or Td vaccine. YesPatient denies history of epilepsy or neurological problems: YesPatient is afebrile and denies being moderately or severely ill: YesPatient denies history of Guillain-Hastings Syndrome (a severe paralyticillness): YesTdap Adacel injection was given without incident.See immunizations for details of immunizations administered today.VIS sheet provided: Cesar Rodriguez CNM was present in office at time of injection.Latoya Begum Ma Normal [facility] CBCon 05-10-2018 Absolute nRBC <0.01 Normal <0.01 [facility] Comment on above: Performed By: #### C BC ####[place] [address] [place], [place] [phone] Erythrocyte distribution width Auto Ratio (RBC) 13.0 % Normal 11.5-15.0 [facility] Comment on above: Performed By: #### C BC ####[place] [address] [place], [place] [phone] Hematocrit Auto Volume Fraction (Bld) 32.2 % Low 36.0-46.0 [facility] Comment on above: Performed By: #### C BC ####[place] [address] [place], [place] [phone] Hemoglobin mass conc (Bld) 10.4 g/dL Low 11.5-15.5 [facility] Comment on above: Performed By: #### C BC ####[place] [address], [place] [phone] MCH Auto Entitic mass (RBC) 30.7 pG Normal 26.0-34.0 [facility] Comment on above: Performed By: #### C BC ####[place] [address], [place] [phone] MCHC Auto mass conc (RBC) 32.3 g/dL Normal 30.5-36.0 [facility] Comment on above: Performed By: #### C BC ####[place] [address], [place] [phone] MCV Auto Entitic volume (RBC) 95.0 fL Normal 80.0-100.0 [facility] Comment on above: Performed By: #### C BC ####[address] [phone] Platelet mean volume Auto Entitic volume (Bld) 11.6 fL Normal 9.0-12.7 [facility] Comment on above: Performed By: #### C BC ####[place] [address] [place], [place] [phone] Platelets Auto #/vol (Bld) 212 10*3/uL Normal 150-400 [facility] Comment on above: Performed By: #### C BC ####[place] [address], [place] [phone] RBC Auto #/vol (Bld) 3.39 10*6/uL Low 3.90-5.20 [facility] Comment on above: Performed By: #### C BC ####[place] [address], [place] [phone] WBC Auto #/vol (Bld) 12.69 10*3/uL High 3.70-11.00 [facility] Comment on above: Performed By: #### C BC ####[place] [address] [address], [place] [phone] 50g, 1hr gest. GSCRNon 04-10 Glucose mass conc 83 mg/dL Normal 74-134 [facility] Comment on above: Result Comment: [facility] Congress of Obstetricians and Gynecologists ([place]athers/Pete) guidelines state a gestational diabetes mellitus positive screen is made, in women not previously diagnosed with overt diabetes, when the 1 hr plasma glucose level is equal to or above 140 mg/dL. The [facility] Water Pollution Specialist and [facility] [place] recommends a 135 mg/dL cutoff. Performed By: #### G LTGST ####[address] [phone] CBC and Differentialon 04-10 Abs Baso 0.00 k/uL Normal <0.11 [facility] Comment on above: Performed By: #### C BCDIF ####[address] [place], [place] [phone] Abs [place] 0.23 k/uL Normal <0.87 [facility] Comment on above: Performed By: #### C BCDIF ####[address] [place], [place] [phone] Abs Neut 9.66 k/uL High 1.45-7.50 [facility] Comment on above: Performed By: #### C BCDIF ####[address], [place] [phone] Basophils/100 WBC Auto (Bld) 0.0 % Normal [facility] Comment on above: Performed By: #### C BCDIF ####[address] [place], [place] [phone] DTYPE Manual Diff Normal [facility] Comment on above: Performed By: #### C BCDIF ####[place] [address] [place] [phone] Eosinophils Auto #/vol (Bld) 0.00 10*3/uL Normal <0.46 [facility] Comment on above: Performed By: #### C BCDIF ####[place] [address] [place] [phone] Eosinophils/100 WBC Auto (Bld) 0.0 % Normal [facility] Comment on above: Performed By: #### C BCDIF ####[place] [address] [address] [place] [phone] Erythrocyte distribution width Auto Ratio (RBC) 12.9 % Normal 11.5-15.0 [facility] Comment on above: Performed By: #### C BCDIF ####[place] [phone] Hematocrit Auto Volume Fraction (Bld) 33.4 % Low 36.0-46.0 [facility] Comment on above: Performed By: #### C BCDIF ####[place] [phone] Hemoglobin mass conc (Bld) 10.7 g/dL Low 11.5-15.5 [facility] Comment on above: Performed By: #### C BCDIF ####[place] [address] [address] [place] [phone] Lymphocytes Auto #/vol (Bld) 2.72 10*3/uL Normal 1.00-4.00 [facility] Comment on above: Performed By: #### C BCDIF ####[place] [address] [place] [phone] Lymphocytes/100 WBC Auto (Bld) 21.6 % Normal [facility] Comment on above: Performed By: #### C BCDIF ####[place] [address] [place] [phone] MCH Auto Entitic mass (RBC) 30.7 pG Normal 26.0-34.0 [facility] Comment on above: Performed By: #### C BCDIF ####[place] [address], [place] [phone] MCHC Auto mass conc (RBC) 32.0 g/dL Normal 30.5-36.0 [facility] Comment on above: Performed By: #### C BCDIF ####[place] [address] [place] [phone] MCV Auto Entitic volume (RBC) 96.0 fL Normal 80.0-100.0 [facility] Comment on above: Performed By: #### C BCDIF ####[place] [address], [place] [phone] Monocytes/100 WBC Auto (Bld) 1.8 % Normal [facility] Comment on above: Performed By: #### C BCDIF ####[place] [address] [place] [phone] Neutrophils/100 WBC Auto (Bld) 76.6 % Normal [facility] Comment on above: Performed By: #### C BCDIF ####[place] [address], [place] [phone] Platelet mean volume Auto Entitic volume (Bld) 11.4 fL Normal 9.0-12.7 [facility] Comment on above: Performed By: #### C BCDIF ####[place] [address], [place] [phone] Platelets Auto #/vol (Bld) Platelet estimate adequate Normal [facility] Comment on above: Performed By: #### C BCDIF ####[place] [address], [place] [phone] Platelets Auto #/vol (Bld) 240 10*3/uL Normal 150-400 [facility] Comment on above: Performed By: #### C BCDIF ####[place] [address] [place], [place] [phone] Polychromasia Slight Normal [facility] Comment on above: Performed By: #### C BCDIF ####[place] [address] [place], [place] [phone] RBC Auto #/vol (Bld) 3.48 10*6/uL Low 3.90-5.20 [facility] Comment on above: Performed By: #### C BCDIF ####[address] [phone] Red Cell Morph SEE COMMENT Normal [facility] Comment on above: Result Comment: Unre markable Performed By: #### C BCDIF ####[address] [phone] WBC Auto #/vol (Bld) 12.61 10*3/uL High 3.70-11.00 [facility] Comment on above: Performed By: #### C BCDIF ####[address] [phone] Bact/Cand Vag Grm Ston 03-21 Bact/Cand Vag Grm St Sp. Request/Comment: - Swab Smear Result - BACTERIAL VAGINOSIS RESULT: Stain results consistent with normal vaginal mary. No Yeast observed Many Polymorphonuclear leukocytes Moderate Mononuclear cells Normal [facility] Comment on above: Performed By: #### B VCNSM ####[facility] [place], [place] [phone] Urine Cultureon 03-20-2018 Bacteria identified Cx Nom (U) Sp. Request/Comment: - Specimen received in preservative Culture Result - <10,000 CFU/ml Normal urogenital mary Normal [facility] Comment on above: Performed By: #### U RCUL ####[address] [phone] PROGRESSon 02-15-2018 Protein mass conc HNO ID: [id number] thor: Monse Bauere: (none)Author Type: PhysicianType: Progress NotesFiled: 02/15/2018 12:24 PMNote Text:Anatomy ultrasound reviewed. No abnormalities identified. Follow up asclinically indicated. Please place copy in ob chart. Monse Lopez MD Normal [facility] Protein mass conc HNO ID: [id number] Author: Blayne Kate Service: (none) Author Type: Physician Type: Progress Notes Filed: 02/15/2018 11:51 AM Note Text: Please see ultrasound report for details of this visit. Blayne Kate M.D. [facility] CNCOon 02-14-2018 CNCO Letter TextWomen's H [place] [phone]: [phone]: Elizabeth JarvisDOB: 1995To Whom It May Concern:This is to verify that the above captioned patient is with asingleton interuterine pregnancyand her Estimated Date of Delivery: 06/30/18.Sincerely,Hyun Caldwell MD [facility] Sequent Scrn Second [facility] ANDRIY DEJAN ONLYon 01-18-2018 HCG Qn 1.00 MoM Normal [facility] Comment on above: Performed By: #### S EQL2 ####[facility] [address], [place] [phone] HCG Qn 1.99 MoM Normal [facility] Comment on above: Performed By: #### S EQL2 ####[facility] [address], [place] [phone] SE1 NATHAN A 0.93 MoM Normal [facility] Comment on above: Performed By: #### S EQL2 ####[facility] [address], [place] [phone] SE2 AFP 1.04 MoM Normal [facility] Comment on above: Performed By: #### S EQL2 ####[address] [phone] SE2 Age Rsk Dn Snyd 1:1100 Normal [facility] Comment on above: Performed By: #### S EQL2 ####[address] [phone] SE2 Dimrc Inhibin A 1.36 MoM Normal [facility] Comment on above: Performed By: #### S EQL2 ####[place] [phone] SE2 Interp Negative Normal Screen Negative [facility] Comment on above: Performed By: #### S EQL2 ####[place] [phone] SE2 Scr Rsk ONTD 1:6700 Normal [facility] Comment on above: Performed By: #### S EQL2 ####[place] [phone] SE2 Scr Rsk Trsmy 13 <1:12423 Normal [facility] Comment on above: Performed By: #### S EQL2 ####[place] [phone] SE2 Scr Rsk Trsmy18 <1:08493 Normal [facility] Comment on above: Performed By: #### S EQL2 ####[place] [phone] SE2 Scrn Rsk Dn Synd <1:45247 Normal [facility] Comment on above: Performed By: #### S EQL2 ####[place] [phone] SE2 Unconj uE3 1.06 MoM Normal [facility] Comment on above: Performed By: #### S EQL2 ####[place] [phone] Seq Scrn Second Trim View results in Scanned Documents link when available. Normal [facility] Comment on above: Performed By: #### S EQL2 ####[address] [phone] SEQ Staff Review Reviewed by Adán Smith MD, PhD ([id number]) Normal [facility] Comment on above: Performed By: #### S EQL2 ####[address] [phone] PROGRESSon 12-20-2017 Protein mass conc HNO ID: [id number] thor: Alan Christiansen: (none)Author Type: PhysicianType: Progress NotesFiled: 12/20/2017 2:47 PMNote Text:A single intrauterine gestational sac is noted with a regular outline.There is no decidual hemorrhage. The yolk sac is visualized and showsnormal shape and echogenicity. A living single fetus is noted. The fetalheart rate is within normal range.The CRL corresponds to the gestational age.Estimated Date of Delivery: 06/30/18EGA = [id number] NT screen for Trisomy 21. The sensitivity of nuchal translucencymeasurement for Trisomy 21 is ~60%.The anatomy appears normal in the areas visualized.RECOMMENDATIONS :- The patient requested the sequential screening. The informationregarding the timing of the second blood drawing will be mailed to her- Ultrasound examination at 18 to 20 weeks Normal [facility] Sequent Scrn First [facility] PATIPriti NTS ONLYon 12-20-2017 HCG Qn 1.00 MoM Normal [facility] Comment on above: Performed By: #### S EQL1 ####[address] [phone] SE1 Age Rsk Dn Synd 1:840 [facility] Comment on above: Performed By: #### S EQL1 ####[address] [phone] SE1 Age Rsk Trsmy18 1:2500 Normal [facility] Comment on above: Performed By: #### S EQL1 ####[address] [phone] SE1 Interp Final result pending second trimester sample Normal Final result pending second trimester sample [facility] Comment on above: Performed By: #### S EQL1 ####[place] [phone] SE1 NATHAN A 0.93 MoM Normal [facility] Comment on above: Performed By: #### S EQL1 ####[place] [phone] SE1 Scr Rsk Trsmy18 <1:87991 Normal [facility] Comment on above: Performed By: #### S EQL1 ####[place] [phone] SE1 Scrn Rsk Dn Synd 1:92345 Normal [facility] Comment on above: Performed By: #### S EQL1 ####[place] [phone] Seq Scrn First Trim View results in Scanned Documents link when available. [facility] Comment on above: Performed By: #### S EQL1 ####[place] [phone] SEQ Staff Review Reviewed by Daljit Middleton, Ph.D. [facility] Comment on above: Performed By: #### S EQL1 ####[place] [phone] PROGRESSon 11-28-2017 Protein mass conc HNO ID: [id number] Author: Monse Lopez Service: (none) Author Type: Physician Type: Progress Notes Filed: 11/28/2017 8:54 AM Note Text: lab reviewed, please place result in chart. Monse Lopez MD` Normal [facility] 50g, 1hr gest. GSCRNon 11-25 Glucose mass conc 87 mg/dL Normal 74-134 [facility] Comment on above: Result Comment: [facility] Congress of Obstetricians and Gynecologists (Jasiel/Pete) guidelines state a gestational diabetes mellitus positive screen is made, in women not previously diagnosed with overt diabetes, when the 1 hr plasma glucose level is equal to or above 140 mg/dL. The [facility] Water Pollution Specialist and [facility] [place] recommends a 135 mg/dL cutoff. Performed By: #### G LTGST ####[place] [address] [place] [phone] CBCon 11-25-2017 Absolute nRBC <0.01 Normal <0.01 [facility] Comment on above: Performed By: #### C BC, SYPHGX, HBSAG, HIV12C, RUBIGG ####[place] [address] [place] [phone] Erythrocyte distribution width Auto Ratio (RBC) 12.7 % Normal 11.5-15.0 [facility] Comment on above: Performed By: #### C BC, SYPHGX, HBSAG, HIV12C, RUBIGG ####[place] [address] [place] [phone] Hematocrit Auto Volume Fraction (Bld) 38.1 % Normal 36.0-46.0 [facility] Comment on above: Performed By: #### C BC, SYPHGX, HBSAG, HIV12C, RUBIGG ####[facility] [place] [phone] Hemoglobin mass conc (Bld) 12.7 g/dL Normal 11.5-15.5 [facility] Comment on above: Performed By: #### C BC, SYPHGX, HBSAG, HIV12C, RUBIGG ####[facility] [place] [phone] MCH Auto Entitic mass (RBC) 29.2 pG Normal 26.0-34.0 [facility] Comment on above: Performed By: #### C BC, SYPHGX, HBSAG, HIV12C, RUBIGG ####[place] [address] [place] [phone] MCHC Auto mass conc (RBC) 33.3 g/dL Normal 30.5-36.0 [facility] Comment on above: Performed By: #### C BC, SYPHGX, HBSAG, HIV12C, RUBIGG ####[place] [address] [place] [phone] MCV Auto Entitic volume (RBC) 87.6 fL Normal 80.0-100.0 [facility] Comment on above: Performed By: #### C BC, SYPHGX, HBSAG, HIV12C, RUBIGG ####[place] [address] [place] [phone] Platelet mean volume Auto Entitic volume (Bld) 10.9 fL Normal 9.0-12.7 [facility] Comment on above: Performed By: #### C BC, SYPHGX, HBSAG, HIV12C, RUBIGG ####[place] [address] [place] [phone] Platelets Auto #/vol (Bld) 267 10*3/uL Normal 150-400 [facility] Comment on above: Performed By: #### C BC, SYPHGX, HBSAG, HIV12C, RUBIGG ####[place] [address] [place] [phone] RBC Auto #/vol (Bld) 4.35 10*6/uL Normal 3.90-5.20 [facility] Comment on above: Performed By: #### C BC, SYPHGX, HBSAG, HIV12C, RUBIGG ####[place] [address] [place] [phone] WBC Auto #/vol (Bld) 7.62 10*3/uL Normal 3.70-11.00 [facility] Comment on above: Performed By: #### C BC, SYPHGX, HBSAG, HIV12C, RUBIGG ####[facility] [phone] GC/Chlamydia Amplifon 2017 Chlamydia Amplif Negative Normal [facility] Comment on above: Performed By: #### G CCT ####[place] [address] [address] [place] [phone] GC Amplification Negative Normal [facility] Comment on above: Performed By: #### G CCT ####[place] [phone] GC/Chlam Amp Source Cervix Normal [facility] Comment on above: Performed By: #### G CCT ####[place] [phone] HIV 12 Combo (Ag/Ab)on 11-25 HIV 12 Ag/Ab Non Reactive Normal Non Reactive [facility] Comment on above: Result Comment: (NOT E)HIV Information: [place] Rev. Code 3701.243(E):This information has been disclosed to you from confidential recordsprotected from disclosure by state law. You shall make no furtherdisclosure of this information without the specific, written, andinformed release of the individual to whom it pertains, or asotherwise permitted by state law. A general authorization for therelease of medical or other information is not sufficient for thepurpose of the release of HIV test results or diagnoses. Performed By: #### C BC, SYPHGX, HBSAG, HIV12C, RUBIGG ####[facility] [place], [place] [phone] HOSPon 11-25-2017 HOSP Initial Off ice Visit (WOOB) --------ELIZABETH JARVIS ([id number]) 1995 FDate Time Provider Department11/25/17 1:45 PM MONSE LOPEZ WOOB During your visit today, we recorded the following information about you: Blood pressure Weight Height Last Period 112/76 95.3 kg 1.689 m 09/23/17Rejuan david Lopez MD 11/25/2017 2:26 PM SignedINITIAL OB ASSESSMENTOB Provider: Monse Lopez MDHPI: Elizabeth Jarvis is a 22 year old female here to establishObstetrical Care. Patient's last menstrual period was 09/23/2017 (exact date).from OB Dating Form. Cycle length: 28-30 daysComplaints: NonePregnancy was planned.Obstetric History T0 L0 SAB0 TAB0 Ectopic0 Multiple0 Live Aninii1Fbtqk : neverHistory of 4th degree laceration: NoPatient's Risk Screening for delivery:History of abnormal pap: NoPrior treatment for cervical dysplasia: none.History of STDs: NoneTobacco use: NoCaffeine use: occasDrug use: NoAlcohol use: NoMultivitamin with Folic acid: YesOccupation: [facility] [employer] [facility] [employer] and [employer] or heritage: NoWould refuse blood transfusion if medically necessary: NoNo weight on file for this encounter. 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 Gender: male History of STDs: NonePAST MEDICAL HISTORYDiagnosis Date- TraumaPAST SURGICAL HISTORYProcedure Laterality Date- REPAIR FRACTURE RADIUS/ULNA 2001 playground accident- TONSILLECTOMY HXCurrent Outpatient Prescriptions on File Prior to Visit: Ozxarvyb-Nl-Aib-Fe-FA ( VITAMIN) tab Take 1 tablet by mouth.No current facility-administered medications on file prior to visit.Review of Systems:GENERAL: Negative for: Fever or Chills toiday but acutely ill yesterday, hadinfluenzaHEENT: Negative for: Headache, Impaired Vision, Ringing in Ears, NosebleedsNECK: Negative for: Swelling, Pain, StiffnessRESPIRATORY: Negative for: Cough, Shortness of breath, WheezingGASTROINTESTINAL: Negative for: Heartburn, Constipation, Diarrhea, Blood instool, n/v yesterdayMUSCULOSKELETAL: Negative for: Muscle or joint pain, stiffness, Joint swellingNEUROLOGIC/PSYCHIA TRIC: Negative for: Weakness, Paralysis, Numbness, Tingling,Tremor, Anxiety, Depression, Memory lossSKIN: Negative for: Rash, ItchingGENITOURINARY: Negative for: vaginal itching, vaginal discharge, hematuria ordysuriaPHYSICAL EXAM: LMP 09/23/2017GENERAL: pleasant female in no apparent distressDERMATOLOGY: Normal, without lesions, non-icteric and non-hirsuteNECK: Supple, full range of motion, no adenopathy and thyroid normalCHEST: Normal inspiratory effortBREAST: soft, non-tender, symmetric, no dominant mass, normal nipple-areolarcomplex, no lymphadenopathy and no nipple dischargeABDOMEN: soft, non-tender and no massesNEURO: alert and oriented x3,exam grossly non-focalPELVIS: External genitalia normal without lesions. Perineal body intact. Novaginal or cervical lesions. Cervix closed. Uterus 9 week size. No adnexalmasses or tenderness.Clinical Pelvimetry: Pelvimetry clinically assessed as adequateLimited OB ultrasound exam: single intrauterine , positive fetalcardiac activity and crown-rump length c/w 9w 1dASSESSMENT: 22 year old at 9w0d wks gestational agePLAN:1) Patient oriented to practice.Discussed nutrition, folic acid supplementation, dietary guidelines, exercise,smoking, alcohol, caffeine, and drug use.Discussed routine OB labs including STD/HIV.Discussed aneuploidy screening options including serum screening and nuchaltranslucency.CF carrier screening discussed and declined.Had influenza, feeling better. contact office if fever or productive coughFollow up in 4 weeks or sooner prn.Monse Lopez, MDReferring Provider: SELF [200]Allergies As of Date: 11/25/2017 Noted Allergy ReactionNYSTATIN 02/19/2016 4 - HivesDate Reviewed: 11/25/2017Reviewed by: Celeste Campuzano Ma - Fully AssessedReason for Visit: Initial OB Visit [4058] Cmt: LMP 09/23/2017 GCTReason For Visit History RecordedPrimary Visit Diagnosis:9 weeks gestation of [Z3A.09] Other Visit Diagnosis:Encounter for care in first trimester of first [Z34.01]Order(s):CBC [SQCBC] Order #: [id number] FUTURE SYPHILIS IGG WITH CONF [SQSYPHGX] Order #: [id number] FUTURE RUBELLA IGG AB [SQRUBQNT] Order #: [id number] FUTURE HEP B SURF AG SCRN [SQHBSAG] Order #: [id number] FUTURE HIV 1,2 COMBO (AG/AB) [SQHIV12] Order #: [id number] FUTURE TYPE + SCREEN [SQTSPN] Order #: [id number] FUTURE GC/CHLAMYDIA DNA DET [SQGCCAMP] Order #: [id number] URINE CULTURE [SQURCUL] Order #: [id number] TOX SCREEN ROUT UR [SQUTOX2] Order #: [id number] NUCHAL TRANSLUCENCY WHI [[id number]] Order #: [id number]: 1 GEST GLUC SCREEN, 1-HR, 50 GM, NON-FASTING [SQGLTGST] Order #: [id number] FUTURE OBSTETRIC ULTRASOUND WHI [[id number]] Order #: [id number]: 1Prescriptions as of 11/25/2017 Sig: NITROFURANTOIN MONOHYDRATE AND * Take 100 mg by mouth. PROMETHAZINE-DM 6.25 MG-15 MG* Take 5 mL by mouth. 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 Patient requested diagnostic testing [Z01.89] INVALID FOR* More...Disposition: Return in 4 weeks (on 12/23/2017) for FOLLOW UP.Follow-up and Disposition History RecordedEncounter Number: [id number] Status:Closed by MONSE LOPEZ MD on 11/25/17 Normal [facility] Hepatitis B Surf. Agon 11-25 Hepatitis B Surf. Ag Negative Normal Negative [facility] Comment on above: Performed By: #### C BC, SYPHGX, HBSAG, HIV12C, RUBIGG ####[facility] [address] [place], [place] [phone] PROGRESSon 11-25-2017 Protein mass conc HNO ID: [id number] thor: Monse LopezSer: (none)Author Type: PhysicianType: Progress NotesFiled: 11/25/2017 2:26 PMNote Text:INITIAL OB ASSESSMENTOB Provider: Monse Lopez MDHPI: Elizabeth Jarvis is a 22 year old female here to establishObstetrical Care. Patient's last menstrual period was 09/23/2017 (exactdate). from OB Dating Form. Cycle length: 28-30 daysComplaints: NonePregnancy was planned.Obstetric History T0 L0 SAB0 TAB0 Ectopic0 Multiple0 Live Slsmwt3Uqbbg : neverHistory of 4th degree laceration: NoPatient's Risk Screening for delivery:History of abnormal pap: NoPrior treatment for cervical dysplasia: none.History of STDs: NoneTobacco use: NoCaffeine use: occasDrug use: NoAlcohol use: NoMultivitamin with Folic acid: YesOccupation: [employer] and studentJe[employer] or heritage: NoWould refuse blood transfusion if medically necessary: NoNo weight on file for this encounter. 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 Gender: male History of STDs: NonePAST MEDICAL HISTORYDiagnosis Date- TraumaPAST SURGICAL HISTORYProcedure Laterality Date- REPAIR FRACTURE RADIUS/ULNA 2001 playground accident- TONSILLECTOMY HXCurrent Outpatient Prescriptions on File Prior to Visit: Vofigszf-Qx-Wbe-Fe-FA ( VITAMIN) tab Take 1 tablet bymouth.No current facility-administered medications on file prior to visit.Review of Systems:GENERAL: Negative for: Fever or Chills toiday but acutely ill yesterday,had influenzaHEENT: Negative for: Headache, Impaired Vision, Ringing in Ears,NosebleedsNECK: Negative for: Swelling, Pain, StiffnessRESPIRATORY: Negative for: Cough, Shortness of breath, WheezingGASTROINTESTINAL: Negative for: Heartburn, Constipation, Diarrhea, Bloodin stool, n/v yesterdayMUSCULOSKELETAL: Negative for: Muscle or joint pain, stiffness, JointswellingNEUROLOGIC/PS YCHIATRIC: Negative for: Weakness, Paralysis, Numbness,Tingling, Tremor, Anxiety, Depression, Memory lossSKIN: Negative for: Rash, ItchingGENITOURINARY: Negative for: vaginal itching, vaginal discharge, hematuriaor dysuriaPHYSICAL EXAM: LMP 09/23/2017GENERAL: pleasant female in no apparent distressDERMATOLOGY: Normal, without lesions, non-icteric and non-hirsuteNECK: Supple, full range of motion, no adenopathy and thyroid normalCHEST: Normal inspiratory effortBREAST: soft, non-tender, symmetric, no dominant mass, normalnipple-areolar complex, no lymphadenopathy and no nipple dischargeABDOMEN: soft, non-tender and no massesNEURO: alert and oriented x3,exam grossly non-focalPELVIS: External genitalia normal without lesions. Perineal body intact.No vaginal or cervical lesions. Cervix closed. Uterus 9 week size. Noadnexal masses or tenderness.Clinical Pelvimetry: Pelvimetry clinically assessed as adequateLimited OB ultrasound exam: single intrauterine , positive fetalcardiac activity and crown-rump length c/w 9w 1dASSESSMENT: 22 year old at 9w0d wks gestational agePLAN:1) Patient oriented to practice.Discussed nutrition, folic acid supplementation, dietary guidelines,exercise, smoking, alcohol, caffeine, and drug use.Discussed routine OB labs including STD/HIV.Discussed aneuploidy screening options including serum screening andnuchal translucency.CF carrier screening discussed and declined.Had influenza, feeling better. contact office if fever or productivecoughFollow up in 4 weeks or sooner prn.Monse Lopez MD Normal [facility] Rubella IgG Antibodyon 11-25 Rubella IgG Ab 3.92 Index Value Normal [facility] Comment on above: Result Comment: Inde x values are interpreted as follows:Negative specimens <0.90Equivocol specimens 0.90 to 0.99Positive specimens >0.99The magnitude of the measured result is not indicative of the amount of antibody present. Performed By: #### C BC, SYPHGX, HBSAG, HIV12C, RUBIGG ####[place] [address] [address] [place] [phone] Rubella IgG Ab, Qual Positive Critically abnormal Negative [facility] Comment on above: Result Comment: Samp le is considered positive for IgG antibodies to rubella virus.A positive result indicates previous exposure to Rubella virus or vaccination. Performed By: #### C BC, SYPHGX, HBSAG, HIV12C, RUBIGG ####[place] [id number] [place] [phone] Syphilis IgG with Confon Syphilis IgG <0.2 Normal [facility] Comment on above: Result Comment: Anti body index is interpreted as follows:Non reactive SPECIMENS <=0.8Weak reactive SPECIMENS 0.9 to 5.9Reactive SPECIMENS >=6.0 Performed By: #### C BC, SYPHGX, HBSAG, HIV12C, RUBIGG ####[place] [id number] [place] [phone] Syphilis IgG, Qual Nonreactive Normal Nonreactive [facility] Comment on above: Result Comment: In c onjunction with this result, the immune status of the patient should be evaluated based on their clinical status, related risk factors, and other diagnostic test results. Performed By: #### C BC, SYPHGX, HBSAG, HIV12C, RUBIGG ####[place] [address]CM[place], [place] [phone] Toxicology Screen,Uron 11-25 Amphetamines, Urine Negative Normal Negative [facility] Comment on above: Result Comment: Cuto ff threshold at 1000 ng/mL.Cross reactivity with other substances can occur with immunoassay screening. In house validation testing showed 70% of preliminary positive samples were confirmed by mass spectrometry (high specificity, quantitative) testing. Greater than 99% of negative screen results were confirmed by mass spectrometry (high specificity, quantitative) testing. Performed By: #### U TOX2 ####[address] [phone] Barbiturates, Urine Negative Normal Negative [facility] Comment on above: Result Comment: Cuto ff threshold at 200 ng/mL.Cross reactivity with other substances can occur with immunoassay screening. In house validation testing showed greater than 99% of preliminary positive samples were confirmed by mass spectrometry (high specificity, quantitative) testing. Greater than 99% of negative screen results were confirmed by mass spectrometry (high specificity, quantitative) testing. Performed By: #### U TOX2 ####[address] [phone] Benzodiazepines, Ur Negative Normal Negative [facility] Comment on above: Result Comment: Cuto ff threshold at 200 ng/mL.Cross reactivity with other substances can occur with immunoassay screening. In house validation testing showed 90% of preliminary positive samples were confirmed by mass spectrometry (high specificity, quantitative) testing. 80% of negative screen results were confirmed by mass spectrometry (high specificity, quantitative) testing. Performed By: #### U TOX2 ####[address] [phone] Cannabinoids, Urine Negative Normal Negative [facility] Comment on above: Result Comment: Cuto ff threshold at 50 ng/mL.Cross reactivity with other substances can occur wtih immunoassay screening. In house validation testing showed 80% of preliminary positive samples were confirmed by mass spectrometry (high specificity, quantitative) testing. Greater than 99% of negative screen results were confirmed by mass spectrometry (high specificity, quantitative) testing. Performed By: #### U TOX2 ####[address] [phone] Cocaine, Urine Negative Normal Negative [facility] Comment on above: Result Comment: Cuto ff threshold at 300 ng/mL.Cross reactivity with other substances can occur with immunoassay screening. In house validation testing showed greater than 99% of preliminary positive samples were confirmed by mass spectrometry (high specificity, quantitative) testing. Greater than 99% of negative screen results were confirmed by mass spectrometry (high specificity, quantitative) testing. Performed By: #### U TOX2 ####[address] [phone] Ethanol, Urine <11 Normal <11 [facility] Comment on above: Performed By: #### U TOX2 ####[address] [phone] Opiates, Urine Negative Normal Negative [facility] Comment on above: Result Comment: Cuto ff threshold at 300 ng/mL.Cross reactivity with other substances can occur wtih immunoassay screening. In house validation testing showed greater than 99% of preliminary positive samples were confirmed by mass spectrometry (high specificity, quantitative) testing. 90% of negative screen results were confirmed by mass spectrometry (high specificity, quantitative) testing. Performed By: #### U TOX2 ####[address] [phone] Oxycodone, Urine Negative Normal Negative [facility] Comment on above: Result Comment: Cuto ff threshold at 100 ng/mL.Cross reactivity with other substances can occur with immunoassay screening. In house validation testing showed greater than 99% of preliminary positive samples were confirmed by mass spectrometry (high specificity, quantitative) testing. Greater than 99% of negative screen results were confirmed by mass spectrometry (high specificity, quantitative) testing.Comment:Immunoassay screen only. Detection of any drug(s) in this urine toxicology panel is presumptive only. Intended use is for evaluation of suspected acute overdose. These tests are for medical purposes only and should not be used for compliance monitoring, legal, or forensic use.If clinically indicated, confirmation by high specificity, quantitative methodology may be requested on the same specimen through Client Services ([phone]) if contacted within 48 hours of initial testing.These tests were developed and their performance characteristics determined by [facility] [place] ([facility]). They have not been cleared or approved by the FDA. [facility] is regulated under CLIA as qualified to perform high complexity testing.These tests are used for clinical purposes. They should not be regarded as investigational or for research. Performed By: #### U TOX2 ####[place] [phone] Phencyclidine, Urine Negative Normal Negative [facility] Comment on above: Result Comment: Cuto ff threshold at 25 ng/mL.Cross reactivity with other substances can occur with immunoassay screening. In house validation testing showed 80% of preliminary positive samples were confirmed by mass spectrometry (high specificity, quantitative) testing. Greater than 99% of negative screen results were confirmed by mass spectrometry (high specificity, quantitative) testing. Performed By: #### U TOX2 ####[place] [phone] Type and Scr,Prenatlon 11-25 ABO/RH(D) Positive Normal [facility] Comment on above: Performed By: #### T SPN ####[place] [phone] Urine Cultureon 11-25-2017 Bacteria identified Cx Nom (U) Sp. Request/Comment: - Specimen received in preservative Culture Result - 10,000 - <50,000 CFU/ml Normal urogenital mary Normal [facility] Comment on above: Performed By: #### U RCUL ####[place] [phone] CNNURSEon 11-17-2017 CNNURSE Nurse Visit (WOOB) --------ELIZABETH JARVIS ([id number]) 1995 FDate Time Provider Department11/17/17 3:30 PM NURSE [facility] WOO[facility] During your visit today, we recorded the following information about you: Last Period 09/23/17Rosalie Newman RN 11/17/2017 3:32 PM SignedSEQUENTIAL SCREENINGSThe [facility] offers sequential screenings for women who are interestedin screenings for chromosomal abnormalities and certain defects during apregnancy. The sequential screen combines ultrasound and blood tests todetermine the risk of chromosomal abnormalities, including Down's Syndrome(Trisomy 21) and Trisomy 18, as well as open neural tube defects includingspina bifida. Ultrasound examination is performed between 11 weeks and 13 weeksgestational age. Blood tests are drawn after the ultrasound and again later inthe between 15 and 21 weeks gestational age. Please let yourphysician know if you are interested in this testing. It will require anappointment with our forestry aid technician. This is not an ultrasound performedby a physician in our office during a routine visit.SIGNS AND SYMPTOMS OF LABOR1. Contractions every 10 minutes or more often2. Clear, pink, or brownish fluid (water) leaking from vagina3. Feeling that baby is pushing down, pressure4. Low, dull backache5. Cramps that feel like a period6. Cramps with or without diarrheaIf you notice any of the above symptoms, contact our office at [phone] andask to speak with a nurse.After hours, you can call doctors registry at [phone] OR call [facility] at [phone] and ask to have the doctor director of retention paged.If you consider this an emergency, dial 9-1-1 or go to your nearest emergencydepartment.Cord-B lood BankingUp until recently, the umbilical cord--along with the blood that remained in itafter a baby was born and the cord cut--was simply discarded by the hospital.Then, in the late 1980s, researchers discovered that cord blood possessedunusual properties that made it useful in the treatment of patients with somecancers and other illnesses. While the actual process of collecting cord bloodis straightforward, many parents are not even aware that this option nowexists, much less familiar with all the issues involved.The case for saving your baby's cord bloodThe blood running back and forth between your baby and the placenta is full ofimmature cells called stem cells. Unlike embryonic stem cells, which have theability to develop into any type of body cell, cord-blood stem cells alreadyare locked into a certain, vital function: making all the different componentsof the blood, such as platelets, white blood cells, and red bloodcells-serving, in effect, like bone marrow. When transfused into a patientwhose own blood cells have faulty genetic coding or have been destroyed bychemotherapy or other cancer treatments, the cord-blood cells can implantthemselves in the bone marrow and generate legions of new, healthy cells.These days, cord-blood transplants most commonly are used in cancer patientswhen a donor can't be found for a bone-marrow transplant. The treatment isparticularly effective in young patients-the [facility] Cord BloodBank reports a 70 percent success rate in children, but only 20 to 40 percentin adults. Researchers envision improving those odds and see many futureapplications as well, such as curing sickle cell disease and otherblood-related genetic illnesses. So there is a possibility that your child, orsomeone else, may need these super-healthy and versatile cells one day.The drawbacksAside from not knowing about this medical option, the main reason most peopledo not save their baby's stem cells is cost. In a private blood bank, theinitial costs run from $275 to $1,500. Most also charge a yearly storage fee of$50 to $95. The advantage of using a private bank is that your sample is savedfor only you to use.An alternative to private bankingPublic cord-blood collado are an alternative. These cost no money to use, butyour sample is not specifically saved for you. Another person with a moreimmediate need may use it. If the time should come that you need stem cells,yours may still be available, or you may use donations from other peoplewithout charge. You also can direct your sample to go to a relative with animmediate need if the blood type matches. Anyone else needing to use stem cellsfrom a public bank who has not been a donor must pay for it, sometimes tens ofthousands of dollars.Will my family benefit from saving stem cells?Right now, situations in which stem cells would be helpful are quite rare. Asmentioned earlier, stem-cell transplants are most commonly used for raregenetic conditions and for some types of cancer, including leukemia andlymphoma.And even with these present uses, many questions remain. In cancer treatment,for example, some researchers are concerned about the wisdom of transplantingback into the child the same cells that already showed a propensity to becomemalignant. Doctors also aren't sure if the number of cells taken at the time ofbirth would be enough to treat a full-grown 16-year-old. It is also notcompletely clear how active the cells would be after years of being stored. Thetreatment is so new and rare, we just don't have the data yet to resolve theseimportant issues.What do the experts say?The [employer] [employer] encourages philanthropic blood banking inpublic collado, but only for families with a current or potential need.Blood-bank proponents encourage any kind of banking, pointing out that researchis getting closer and closer to many diverse, live-saving applications.How do I decide?Each family must weigh the pros and cons for themselves. Some families say thatany cost is worth their peace of mind. Others say that in the face ofuncertainty about the effectiveness of the treatment, they will use theirresources elsewhere. Some choose the middle ground of donating publicly,knowing that their sample might benefit another family, if not themselves. Formore information, ask your doctor or nurse, and be sure to check out ourarticle on the technical aspects of cord-blood banking.Technical Aspects of Cord-Blood BankingIf you are interested in storing your baby's umbilical-cord blood because ofits possible use in emerging medical treatments, you must make arrangementswith a blood bank before your child is born. The collection procedure is quitesimple:After delivery of the baby, the umbilical cord is clamped and cut in the usualway. The blood that remains in the umbilical-cord vessels is then collected insterile containers. The blood may be removed from the cord with a large needleor allowed to flow freely, depending on the company's collection system. Thecontainers may look like large test tubes or like the plastic bags used in ablood bank. It does not cause the mother or the baby any pain to collect theblood, and no blood is taken that the baby needs at the moment.The nurse, child psychiatrist, or physician will then label the samples, check them overwith you, and package them for a special pickup arranged with a commercialcarrier. When the blood arrives at the blood-bank facility, it is processed andthe parents are notified. It is then kept in an advanced storage system foryears.How do I know that my sample is safe?Power outages and bankruptcies potentially could threaten any organization, butso far none have been reported. It is to be hoped that the scientists in thesebanks would arrange for safe transfer to another facility if the need arose.YOU MUST MAKE ARRANGEMENTS AHEAD OF TIME!Public cord-blood collado--DONATION:[employer] [phone], [facility], [facility] cord-blood collado--SAVING FOR YOUR OWN USE:[employer], (I think this is the least expensive)[employer] [phone], ([phone]) [facility]ANK[facility] Cord Blood Bank, [phone]) 700-CORDBirth Cells, [phone] Cryobank, [place] [facility], ([phone]) CORDBLOODViacord, an Internet search may provide you with additional listings.Referring Provider: SELF [200]Allergies As of Date: 11/17/2017 Noted Allergy ReactionNYSTATIN 02/19/2016 4 - HivesDate Reviewed: 11/17/2017Reviewed by: Rosalie Newman RN - Fully AssessedReason for Visit: Care [86] Cmt: Pre-New OBPrimary Visit Diagnosis:Supervision of normal first , antepartum [Z34.00] Other Visit Diagnoses:Obesity in [O99.210] Patient requested diagnostic testing [Z01.89]Prescriptions as of 11/17/2017 Sig: VITAMIN,CALCIUM,MINE* Take 1 tablet by mouth.Problem List As Of Date 11/17/2017 Noted Resolved Myopia [H52.10] INVALID FOR* Astigmatism, regular [H52.229] INVALID FOR* 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 Patient requested diagnostic testing [Z01.89] INVALID FOR* More... Other instructions from your clinician: SEQUENTIAL SCREENINGS The [facility] offers sequential screenings for women who are interested in screenings for chromosomal abnormalities and certain defects during a . The sequential screen combines ultrasound and blood tests to determine the risk of chromosomal abnormalities, including Down's Syndrome (Trisomy 21) and Trisomy 18, as well as open neural tube defects including spina bifida. Ultrasound examination is performed between 11 weeks and 13 weeks gestational age. Blood tests are drawn after the ultrasound and again later in the between 15 and 21 weeks gestational age. Please let your physician know if you are interested in this testing. It will require an appointment with our forestry aid technician. This is not an ultrasound performed by a physician in our office during a routine visit. SIGNS AND SYMPTOMS OF LABOR 1. Contractions every 10 minutes or more often 2. Clear, pink, or brownish fluid (water) leaking from vagina 3. Feeling that baby is pushing down, pressure 4. Low, dull backache 5. Cramps that feel like a period 6. Cramps with or without diarrhea If you notice any of the above symptoms, contact our office at [phone] and ask to speak with a nurse. After hours, you can call doctors registry at [phone] OR call [facility] at [phone] and ask to have the doctor director of retention paged. If you consider this an emergency, dial 9-1-1 or go to your nearest emergency department. Cord-Blood Banking Up until recently, the umbilical cord--along with the blood that remained in it after a baby was born and the cord cut--was simply discarded by the hospital. Then, in the late 1980s, researchers discovered that cord blood possessed unusual properties that made it useful in the treatment of patients with some cancers and other illnesses. While the actual process of collecting cord blood is straightforward, many parents are not even aware that this option now exists, much less familiar with all the issues involved. The case for saving your baby's cord blood The blood running back and forth between your baby and the placenta is full of immature cells called stem cells. Unlike embryonic stem cells, which have the ability to develop into any type of body cell, cord-blood stem cells already are locked into a certain, vital function: making all the different components of the blood, such as platelets, white blood cells, and red blood cells-serving, in effect, like bone marrow. When transfused into a patient whose own blood cells have faulty genetic coding or have been destroyed by chemotherapy or other cancer treatments, the cord-blood cells can implant themselves in the bone marrow and generate legions of new, healthy cells. These days, cord-blood transplants most commonly are used in cancer patients when a donor can't be found for a bone-marrow transplant. The treatment is particularly effective in young patients-the [facility] Cord Blood Bank reports a 70 percent success rate in children, but only 20 to 40 percent in adults. Researchers envision improving those odds and see many future applications as well, such as curing sickle cell disease and other blood-related genetic illnesses. So there is a possibility that your child, or someone else, may need these super-healthy and versatile cells one day. The drawbacks Aside from not knowing about this medical option, the main reason most people do not save their baby's stem cells is cost. In a private blood bank, the initial costs run from $275 to $1,500. Most also charge a yearly storage fee of $50 to $95. The advantage of using a private bank is that your sample is saved for only you to use. An alternative to private banking Public cord-blood collado are an alternative. These cost no money to use, but your sample is not specifically saved for you. Another person with a more immediate need may use it. If the time should come that you need stem cells, yours may still be available, or you may use donations from other people without charge. You also can direct your sample to go to a relative with an immediate need if the blood type matches. Anyone else needing to use stem cells from a public bank who has not been a donor must pay for it, sometimes tens of thousands of dollars. Will my family benefit from saving stem cells? Right now, situations in which stem cells would be helpful are quite rare. As mentioned earlier, stem-cell transplants are most commonly used for rare genetic conditions and for some types of cancer, including leukemia and lymphoma. And even with these present uses, many questions remain. In cancer treatment, for example, some researchers are concerned about the wisdom of transplanting back into the child the same cells that already showed a propensity to become malignant. Doctors also aren't sure if the number of cells taken at the time of would be enough to treat a full-grown 16-year-old. It is also not completely clear how active the cells would be after years of being stored. The treatment is so new and rare, we just don't have the data yet to resolve these important issues. What do the experts say? The [employer] [employer] encourages philanthropic blood banking in public collado, but only for families with a current or potential need. Blood-bank proponents encourage any kind of banking, pointing out that research is getting closer and closer to many diverse, live-saving applications. How do I decide? Each family must weigh the pros and cons for themselves. Some families say that any cost is worth their peace of mind. Others say that in the face of uncertainty about the effectiveness of the treatment, they will use their resources elsewhere. Some choose the middle ground of donating publicly, knowing that their sample might benefit another family, if not themselves. For more information, ask your doctor or nurse, and be sure to check out our article on the technical aspects of cord-blood banking. Technical Aspects of Cord-Blood Banking If you are interested in storing your baby's umbilical-cord blood because of its possible use in emerging medical treatments, you must make arrangements with a blood bank before your child is born. The collection procedure is quite simple: After delivery of the baby, the umbilical cord is clamped and cut in the usual way. The blood that remains in the umbilical-cord vessels is then collected in sterile containers. The blood may be removed from the cord with a large needle or allowed to flow freely, depending on the company's collection system. The containers may look like large test tubes or like the plastic bags used in a blood bank. It does not cause the mother or the baby any pain to collect the blood, and no blood is taken that the baby needs at the moment. The nurse, child psychiatrist, or physician will then label the samples, check them over with you, and package them for a special pickup arranged with a commercial carrier. When the blood arrives at the blood-bank facility, it is processed and the parents are notified. It is then kept in an advanced storage system for years. How do I know that my sample is safe? Power outages and bankruptcies potentially could threaten any organization, but so far none have been reported. It is to be hoped that the scientists in these collado would arrange for safe transfer to another facility if the need arose. YOU MUST MAKE ARRANGEMENTS AHEAD OF TIME! Public cord-blood collado--DONATION: [employer] [phone] [facility]'s Placental Blood Program, [facility] Umbilical Cord Blood Bank, Private cord-blood collado--SAVING FOR YOUR OWN USE: [employer], (I think this is the least expensive) [employer] [phone] [facility], [phone]) L[facility]ANK [place] Cord Blood [facility], [phone]-CORD Cells, [phone] [place] [facility], Cord Blood Registry, ([phone]) CORDBLOOD V[employer], An Internet search may provide you with additional listings.Disposition: Return in 8 days (on 11/25/2017) for New OB with Dr Lopez.Follow-up and Disposition History RecordedLetter Vangie Jarvis:How to activate your [facility] PermissionTV Account 1. Visit the PermissionTV Signup page at [email or web address] 2. Identify yourself using your one-time use activation code: [email or web address] 3. Follow the on-screen prompts to choose your own secure username andpasswordThe following information will be necessary to access your account for thefirst time:Information needed for sign-up:Your custom activation code used one-time only for the initial accountset-up.Your date of birthThe last 4 digits of your social security numberWhat to do next:Fill in the requested information on the Identify Yourself Form [email or web address] , click Next.Create your login and password, choose a PermissionTV ID and password that will beeasy for you to use, but impossible for anyone else to guess.Pick a security question that will assist you in the event you forget yourpassword the next time you log-on.If you have difficulty activating your account, please call our kontakt.io at [phone] or toll free at .We hope you enjoy using PermissionTV!Kindest Regards,[facility] PermissionTV TeamEncounter Number: [id number] Status:Closed by ROSALIE NEWMAN RN on 11/17/17 Normal [facility] Culture, Urineon 06-02-2017 Culture, Urine Test Name: Culture, UrineCulture Status: FinalMicro Source: UrineORGANISM ID: 1 - >100,000 CFU/ml ESCHERICHIA COLIANTIBIOTIC INTERPRETATION ORALIA STATUSAmpicillin S <= 2 FAmp/Sulbactam S <= 2 FCefazolin S <= 4 FCefepime S <= 1 FCeftazidime S <= 1 FCeftriaxone S <= 1 FCiprofloxacin S <= 0.25 FGentamicin S <= 1 FLevofloxacin S <= 0.12 FNitrofurantoin S <= 16 FPiperacillin/Tazo S <= 4 FTobramycin S <= 1 FTrimeth/Sulfa S <= 20 F Normal [facility] Comment on above: Performed By: #### U RCUL ####Unless otherwise noted, all testing performed by [place] [address] [address] ParikhP[place], [place] [id number]: [id number] Director: Tanner Matthews M.D. SPINE LUMBOSACRAL AP/LAT/UP/ L5CDon 06-02-2017 SPINE LUMBOSACRAL AP/LAT/UP/L5CD Final ReportAccession No: [id number] Performed: Jun 02 2017 5:40PMExamination: SPINE LUMBOSACRAL AP/LAT/UP/[id number] female with low back pain.AP, lateral, angled upshot and coned-down views lumbar spine 06/02/2017 at5:25 PM:FINDINGS: There are five lumbar vertebral bodies. The vertebral bodiesare normal height and alignment. There is mild disc space narrowing atL5-S1. Pedicles are intact. SI joints normal.IMPRESSION: Mild L5-S1 disc disease.Interpreting Physician: RACHAEL ROBERTSON M.D.Trans: : cc: Normal [facility] Vital Signs Date Time Vital Sign Value Performing Clinician Facility 09-28-2023 13:36-0500 Body height 172.7 cm Angeline Perera [employer] SALES REPRESENTATIVE Work Phone: [facility] 09-28-2023 13:36-0500 Body mass index (BMI) [Ratio] 28.13 kg/m2 Angeline Perera [employer] SALES REPRESENTATIVE Work Phone: [facility] 09-28-2023 13:36-0500 Body temperature 97.5 [degF] Angeline Perera [employer] SALES REPRESENTATIVE Work Phone: [facility] 09-28-2023 13:36-0500 Body weight 83.92 kg Angeline Perera [employer] SALES REPRESENTATIVE Work Phone: [facility] 09-28-2023 13:36-0500 Diastolic blood pressure 55 mm[Hg] Angeline Perera [employer] SALES REPRESENTATIVE Work Phone: [facility] 09-28-2023 13:36-0500 Heart rate 84 /min Angeline Perera [employer] SALES REPRESENTATIVE Work Phone: [facility] 09-28-2023 13:36-0500 Respiratory rate 18 /min Angeline Perera [employer] SALES REPRESENTATIVE Work Phone: [facility] 09-28-2023 13:36-0500 SaO2% (BldA) [Mass fraction] 99 % Angeline Perera [employer] SALES REPRESENTATIVE Work Phone: [facility] 09-28-2023 13:36-0500 Systolic blood pressure 115 mm[Hg] Angeline Perera [employer] SALES REPRESENTATIVE Work Phone: [facility] 12-03-2020 10:30-0500 Respiratory Rate 14 /min Alona Pritchett [facility] 12-03-2020 07:53-0500 Body Temperature 98.2 [degF] Alona Pritchett [facility] 12-03-2020 07:53-0500 BP Diastolic 69 mm[Hg] Alona [facility] 12-03-2020 07:53-0500 BP Systolic 112 mm[Hg] [facility] 12-03-2020 07:53-0500 Pulse (Heart Rate) 76 /min [facility] 12-03-2020 07:53-0500 Pulse Oximetry 97 % [facility] 12-01-2020 06:40-0500 BMI (Body Mass Index) 34.21 kg/m2 [facility] 12-01-2020 06:40-0500 Body weight 102.[address] [facility] 12-01-2020 06:40-0500 Height 172.7 cm [facility] 11-14-2020 14:35-0500 Body Temperature 98.1 [degF] [facility] 11-14-2020 14:35-0500 BP Diastolic 77 mm[Hg] [facility] 11-14-2020 14:35-0500 BP Systolic 132 mm[Hg] [facility] 11-14-2020 14:35-0500 Pulse (Heart Rate) 95 /min [facility] 11-14-2020 14:35-0500 Pulse Oximetry 96 % [facility] 11-14-2020 14:35-0500 Respiratory Rate 16 /min [facility] 04-29-2020 16:30-0400 BMI (Body Mass Index) 29.02 kg/m2 [facility]-29-2020 16:30-0400 Body Temperature 97.81 [degF] [facility] 04-29-2020 16:30-0400 Body weight 84.05 kg [facility] 04-29-2020 16:30-0400 BP Diastolic 68 mm[Hg] [facility] 04-29-2020 16:30-0400 BP Systolic 109 mm[Hg] [facility] 04-29-2020 16:30-0400 Height 170.2 cm [facility] 04-29-2020 16:30-0400 Pulse (Heart Rate) 81 /min [facility] 04-29-2020 16:30-0400 Pulse Oximetry 96 % Delilah Carballo [facility] 12-25-2019 12:44-0500 BMI (Body Mass Index) 28.82 kg/m2 [facility] 12-25-2019 12:44-0500 Body Temperature 97.2 [degF] [facility] 12-25-2019 12:44-0500 Body weight 83.46 kg [facility] 12-25-2019 12:44-0500 BP Diastolic 83 mm[Hg] [facility] 12-25-2019 12:44-0500 BP Systolic 135 mm[Hg] [facility] 12-25-2019 12:44-0500 Height 170.2 cm [facility] 12-25-2019 12:44-0500 Pulse (Heart Rate) 101 /min [facility] 12-25-2019 12:44-0500 Pulse Oximetry 97 % [facility] 12-25-2019 12:44-0500 Respiratory Rate 18 /min [facility] 09-16-2019 09:17-0500 BP Diastolic 67 mm[Hg] [facility] 09-16-2019 09:17-0500 BP Systolic 118 mm[Hg] [facility] 09-16-2019 09:17-0500 Pulse (Heart Rate) 82 /min [facility] 09-16-2019 09:17-0500 Pulse Oximetry 98 % [facility] 09-16-2019 09:17-0500 Respiratory Rate 16 /min [facility] 09-16-2019 08:16-0500 Height 172.7 cm [facility] 09-16-2019 08:14-0500 Body Temperature 98.01 [degF] [facility] 08-09-2019 09:36-0400 BMI (Body Mass Index) 32.63 kg/m2 Kymberly Wray [facility] 08-09-2019 09:36-0400 Body Temperature 97.9 [degF] Kymberly Wray [facility] 08-09-2019 09:36-0400 Body weight 94.51 kg Kymberly Wray [facility] 08-09-2019 09:36-0400 BP Diastolic 78 mm[Hg] Kymberly Wray [facility] 08-09-2019 09:36-0400 BP Systolic 115 mm[Hg] Kymberly Wray [facility] 08-09-2019 09:36-0400 Height 170.2 cm Kymberly Wray [facility] 08-09-2019 09:36-0400 Pulse (Heart Rate) 71 /min Kymberly Wray [facility] 08-09-2019 09:36-0400 Pulse Oximetry 96 % Kymberly Wray [facility] 08-09-2019 09:36-0400 Respiratory Rate 18 /min Kymberly Wray [facility] 07-12-2019 11:27-0400 BP Diastolic 70 mm[Hg] [facility]-12-2019 11:27-0400 BP Systolic 122 mm[Hg] [facility] 07-12-2019 11:27-0400 Pulse (Heart Rate) 65 /min [facility] 07-12-2019 11:27-0400 Pulse Oximetry 97 % Kb [facility] 07-12-2019 11:27-0400 Respiratory Rate 16 /min [facility] 07-12-2019 10:06-0400 BMI (Body Mass Index) 32.89 kg/m2 [facility] 07-12-2019 10:06-0400 Body weight 95.25 kg [facility] 07-12-2019 10:06-0400 Height 170.2 cm [facility] 07-12-2019 10:00-0400 Body Temperature 98.49 [degF] [facility] 05-25-2019 08:21-0400 BMI (Body Mass Index) 32.89 kg/m2 [facility]-25-[facility] 08:21-0400 Body Temperature 98.01 [degF] Kymberly Wray [facility] 05-25-2019 08:21-0400 Body weight 95.25 [facility] 05-25-2019 08:21-0400 BP Diastolic 63 mm[Hg] Kymberly Wray [facility] 05-25-2019 08:21-0400 BP Systolic 104 mm[Hg] Kymberly Wray [facility] 05-25-2019 08:21-0400 Pulse (Heart Rate) 72 /min [facility] 05-25-2019 08:21-0400 Pulse Oximetry 96 % Kymberly Wray [facility] 05-25-2019 08:21-0400 Respiratory Rate 18 /min Kymberly Wray [facility] 05-13-2019 14:48-0400 Body Temperature 98.2 [degF] Jason Edwards [facility] 05-13-2019 14:48-0400 BP Diastolic 66 mm[Hg] Jason Edwards [facility] 05-13-2019 14:48-0400 BP Systolic 124 mm[Hg] [facility] 14:48-0400 Pulse Oximetry 99 % Jason Edwards [facility] 05-13-2019 14:48-0400 Respiratory Rate 16 /min Jason Edwards [facility] 04-04-2019 10:45-0400 Height 170.2 cm Kymberly Wray [facility] 04-04-2019 09:53-0400 BMI (Body Mass Index) 32.56 kg/m2 Kymberly Wray [facility] 04-04-2019 09:53-0400 Body Temperature 98.1 [degF] Kymberly Wray [facility] 04-04-2019 09:53-0400 BP Diastolic 77 mm[Hg] Kymberly Wray [facility] 04-04-2019 09:53-0400 BP Systolic 120 mm[Hg] Kymberly Wray [facility] 04-04-2019 09:53-0400 Pulse (Heart Rate) 63 /min Kymberly Wray [facility] 04-04-2019 09:53-0400 Pulse Oximetry 97 % Kymberly Wray [facility] 04-04-2019 09:53-0400 Respiratory Rate 18 /min Kymberly Wray [facility] 04-04-2019 09:53-0400 Weight 94.3 kg Kymberly Wray [facility] 03-16-2019 11:21-0400 Body Temperature 98.01 [degF] Latoyajordan Fontanez [facility] 03-16-2019 11:21-0400 BP Diastolic 74 mm[Hg] Latoya Fontanez [facility] 03-16-2019 11:21-0400 BP Systolic 119 mm[Hg] Latoyajordan Fontanez [facility] 03-16-2019 11:21-0400 Pulse (Heart Rate) 56 /min Latoya Fontanez [facility] 03-16-2019 11:21-0400 Pulse Oximetry 97 % Latoya Fontanez [facility] 03-16-2019 11:21-0400 Respiratory Rate 18 /min Latoya Fontanez [facility] 11-03-2018 09:54-0500 BMI (Body Mass Index) 33.55 kg/m2 Kymberly Owen [facility] 11-03-2018 09:54-0500 Body Temperature 98.01 [degF] Kymberly Owen [facility] 11-03-2018 09:54-0500 BP Diastolic 74 mm[Hg] Kymberly Owen [facility] 11-03-2018 09:54-0500 BP Systolic 115 mm[Hg] Kymberly Owen [facility] 11-03-2018 09:54-0500 Pulse (Heart Rate) 67 /min Kymberly Owen [facility] 11-03-2018 09:54-0500 Pulse Oximetry 95 % Kymberly Owen [facility] 11-03-2018 09:54-0500 Respiratory Rate 18 /min Kymberly Owen [facility] 11-03-2018 09:54-0500 Weight 98.61 kg Kymberly Owen [facility] Encounters Encounter Date Encounter Type Care Provider Facility Start: 12-11-2023 End: 12-11-2023 [facility] department [facility] Start: 11-28-2023 End: 11-29-2023 Emergency department patient visit [facility] Start: 09-28-2023 ambulatory ANGELINE Rubens [facility] Start: 09-28-2023 End: 09-28-2023 Office outpatient new 30 minutes Fernanda Aleman MD Work Phone: [facility] Comment on above: Post-nasal drainage (Primary Dx); PND (post-nasal drip) Start: [facility]01[facility]: 11-01-2022 End: 11-01-2022 [facility] department [facility]: 11-16-2021 End: 11-20-2021 ambulatory [facility] Start: 12-01-2020 End: 12-03-2020 Evaluation and management of inpatient ALONA SANTINO PRITCHETT [facility] Start: 12-01-2020 End: 12-03-2020 Evaluation and management of inpatient Alona De Chaitanya Work Phone: [facility] Obstetrics Comment on above: Post-op pain (Primar y Dx) Start: 11-14-2020 End: 11-14-2020 Subsequent hospital visit by physician Karla Kendall Work Phone: [facility] Labor & Delivery Start: 09-28-2020 End: 09-28-2020 Patient encounter procedure MAGUI BLAKE [facility] Start: 06-12-2020 End: 06-12-2020 Patient encounter procedure FERNANDA PaulJhoan ASH [facility] Start: 04-29-2020 End: 04-29-2020 Patient encounter procedure FERNANDA ALEMAN [facility] [facility] Start: 04-29-2020 End: 04-29-2020 Office outpatient new 30 minutes Fernanda PaulJhoan Cuevasnancy Work Phone: [facility] G[facility] Comment on above: Irritable bowel synd thad with diarrhea (Primary Dx); Chronic diarrhea Start: 03-19-2020 Patient encounter procedure DELILAH CARBALLO [facility] Start: 03-19-2020 End: 03-19-2020 Subsequent hospital visit by physician Michaellety Aleman Work Phone: [facility] Ultrasound Comment on above: Abdominal pain, gene ralized Start: 03-13-2020 End: 03-13-2020 Patient encounter procedure THOMAS MONTOYA [facility] Start: 12-25-2019 End: 12-25-2019 Emergency department patient visit Willian Pickard Work Phone: [facility] Emergency Department Comment on above: Exposure to blood or body fluid (Primary Dx) Start: 09-16-2019 End: 09-16-2019 Emergency department patient visit Angus Christian Work Phone: [facility] Start: 08-09-2019 End: 08-09-2019 Patient encounter procedure KMYBERLY OWEN [facility] Start: 08-09-2019 End: 08-09-2019 Periodic preventive med est patient 18-39 yrs yKmberly Wray Work Phone: [facility] Comment on above: Well female exam wit h routine gynecological exam (Primary Dx) Start: 07-13-2019 Follow-up encounter Carmen Hou [facility] Comment on above: ED Follow-up Start: 07-13-2019 End: 07-13-2019 Patient encounter procedure Carmen Hou [facility] Start: 07-12-2019 End: 07-12-2019 Emergency department patient visit Kb Martinez Work Phone: [facility] Emergency Department Comment on above: Nausea and vomiting, intractability of vomiting not specified, unspecified vomiting type (Primary Dx) Start: 05-25-2019 End: 05-25-2019 Patient encounter procedure KYMBERLY OWEN [facility] Start: 05-25-2019 End: 05-25-2019 Office outpatient visit 25 minutes Kymberly Wray Work Phone: [facility] Comment on above: Obesity (BMI 30.0-34 .9) (Primary Dx); Lumbar back pain Start: 05-13-2019 End: 05-13-2019 Emergency department patient visit Jason Carlper Work Phone: [facility] Emergency Department Comment on above: Other chronic back p ain (Primary Dx) Start: 04-23-2019 End: 04-23-2019 Patient encounter procedure Kymberly Wray Work Phone: [facility] Comment on above: Lumbar back pain Start: 04-19-2019 End: 04-19-2019 Patient encounter procedure Kymberly Wray Work Phone: [facility] Comment on above: Lumbar back pain Start: 04-10-2019 End: 04-11-2019 Patient encounter procedure Kymberly Wray Work Phone: [facility] Comment on above: Lumbar back pain Start: 04-04-2019 End: 04-04-2019 Periodic preventive med est patient 18-39 yrs Kymberly Wray Work Phone: [facility] Comment on above: Well adult exam (Keya naseem Dx); Vitamin D deficiency; Screening for thyroid disorder; Screening for lipid disorders; Lumbar back pain; Vitamin B deficiency Start: 03-16-2019 End: 03-16-2019 Office outpatient visit 25 minutes Latoya Fontanez Work Phone: [facility] Comment on above: Lumbar back pain (Pr imary Dx) Start: 11-03-2018 End: 11-03-2018 Office outpatient visit 25 minutes Kymberly Owen Work Phone: [facility] Comment on above: Diarrhea, unspecifie d type (Primary Dx); Hemorrhoids, unspecified hemorrhoid type Start: 10-18-2018 End: 10-19-2018 Patient encounter procedure VANDANA (CNM) [facility] Start: 09-28-2018 End: 09-29-2018 Patient encounter procedure VANDANA (CNM) FERNANDA [facility] Start: 09-19-2018 End: 10-13-2018 Patient encounter procedure VANDANA (CNM) [facility] Start: 08-18-2018 End: 09-19-2018 Patient encounter procedure VANDANA (CNM) FERNANDA [facility] Start: 07-17-2018 End: 07-18-2018 Patient encounter procedure JARRETT [facility] Start: 07-07-2018 End: 07-10-2018 Evaluation and management of inpatient SASHA DEVINE Facility:[facility] Start: 07-05-2018 End: 07-08-2018 Patient encounter procedure JARRETT MENDEZLOREN [facility] Start: 06-29-2018 End: 07-04-2018 Patient encounter procedure JARRETT BAUER [facility] Start: 06-23-2018 End: 06-26-2018 Patient encounter procedure MONSE LOPEZ [facility] Start: 06-16-2018 End: 06-19-2018 Patient encounter procedure ANGELINE (CNM) RODRICK [facility] Start: 06-09-2018 End: 06-12-2018 Patient encounter procedure JUSTINE BELCHER [facility] Start: 06-05-2018 End: 06-06-2018 Patient encounter Hyun Rey Facility:[facility] Start: 06-02-2018 End: 06-05-2018 Patient encounter procedure MONSE LOPEZ [facility] Start: 05-26-2018 End: 05-29-2018 Patient encounter procedure ANGELINE (CNM) RODRIGUEZ [facility] Start: 05-10-2018 End: 05-10-2018 Patient encounter procedure VANDANA (CNM) FERNANDA [facility] Start: 04-28-2018 End: 05-01-2018 Patient encounter procedure HYUN SAENZNTOSH [facility] Start: 04-10-2018 Patient encounter procedure HYUN DIGNA SAENZNTOSH [facility] Start: 04-10-2018 End: 04-10-2018 Patient encounter procedure HYUN DIGNA CALDWELL [facility] Start: 03-20-2018 End: 03-20-2018 Patient encounter procedure ANGELINE (CNM) RODRICK [facility] Start: 03-14-2018 End: 03-14-2018 Patient encounter procedure MONSE Mercado JOHN [facility] Start: 02-15-2018 End: 02-15-2018 Patient encounter procedure MONSE Rogelio LOPEZ [facility] Start: 02-15-2018 End: 02-17-2018 Patient encounter procedure BLAYNE KATE [facility] Start: 01-18-2018 End: 01-18-2018 Patient encounter procedure HYUN SAENZNTOSH [facility] Start: 01-12-2018 End: 01-13-2018 Patient encounter procedure MONSE OJHN [facility] Start: 12-20-2017 End: 12-20-2017 Patient encounter procedure HYUN SAENZNTOSH [facility] Start: 12-20-2017 End: 12-23-2017 Patient encounter procedure ALAN JACOBSEN [facility] Start: 11-25-2017 End: 12-08-2017 Patient encounter procedure MONSE Mercado JOHN [facility] Start: 11-17-2017 Encounter for other specified special examinations MONSE LOPEZ [facility] Start: 11-17-2017 End: 11-18-2017 Patient encounter procedure MONSE JOHN [facility] Start: 06-16-2017 Ambulatory Latoya Fontanez Facility:[facility] Start: 06-16-2017 End: 06-16-2017 Patient encounter procedure Latoya Fontanez Work Phone: [facility] Start: 06-02-2017 Ambulatory Latoya Fontanez Facility:[facility] Start: 06-02-2017 End: 06-02-2017 Ambulatory Latoya Fontanez Work Phone: [facility] Start: 06-02-2017 End: 06-02-2017 Ambulatory Latoya Fontanez Work Phone: [facility] Start: 06-02-2017 End: 06-02-2017 Patient encounter procedure Latoya Fontanez Work Phone: [facility] Procedures Date Procedure Procedure Detail Performing Clinician Start: 12-02-2020 Complete blood count (hemogram) panel - Blood by Automated count Alonacorie Pritchett Work Phone: Start: 12-01-2020 SCAN OTHER ORDERS Provi alex Not In System Start: 12-01-2020 End: 12-01-2020 SECTION WITH BILATERAL PARTIAL SALPINGECTOMY Alona Santino Chaitanya Work Phone: Start: 12-01-2020 Blood group typing Shanice corie Pritchett Work Phone: Start: 12-01-2020 Blood type and Indir ect antibody screen panel - Blood Alonacorie Pritchett Work Phone: Start: 12-01-2020 Complete blood count (hemogram) panel - Blood by Automated count Alona Pritchett Work Phone: Start: 11-17-2020 Streptococcus agalac tiae DNA [Presence] in Unspecified specimen by RAKAN with probe detection Historical Provider Start: 11-14-2020 Eval c/v amniotic fl uid protein qual ea specimen Karla Kendall Work Phone: Start: 11-14-2020 Urinalysis Karla Gamboatt Work Phone: Start: 05-20-2020 Blood type and Indir ect antibody screen panel - Blood Historical Provider Start: 05-20-2020 Complete blood count with white cell differential, manual Historical Provider Start: 05-20-2020 Hepatitis C antibody measurement Historical Provider Start: 05-20-2020 Human immunodeficien cy virus test Historical Provider Start: 05-20-2020 Rapid plasma reagin test Historical Provider Start: 05-20-2020 Rubella IgG measurement Historical Provider Start: 03-19-2020 US scan of upper abdomen Fernanda Aleman Work Phone: Start: 11-17-2019 Glucose [Mass/volume ] in Serum or Plasma --1 hour post 50 g glucose PO Historical Provider Start: 08-09-2019 Microscopic observat ion [Identifier] in Cervix by Cyto stain Willian Pickard Start: 07-12-2019 LAVENDER TOP Kb Peralta rsame Egal Work Phone: Start: 07-12-2019 LIGHT BLUE TOP Kb Lani Egal Work Phone: Start: 07-12-2019 RAINBOW DRAW Kb Peralta rsame Egal Work Phone: Start: 07-12-2019 Basic metabolic 1998 panel - Serum or Plasma Jose Grimaldo Work Phone: Start: 07-12-2019 Choriogonadotropin.b eta subunit ( test) [Presence] in Serum or Plasma Josejordan Benitez Grimaldo Work Phone: Start: 05-25-2019 Adult depression scr eening assessment Kb Egwalter Start: 05-13-2019 CT of lumbar spine w ithout contrast Jasonherbert Edwards Work Phone: Start: 05-13-2019 Choriogonadotropin ( test) [Presence] in Urine Jasonherbert Grant Edwards Work Phone: Start: 05-13-2019 Urinalysis Jason Rudy Edwards Work Phone: Start: 08-31-2018 Microscopic observat ion [Identifier] in Cervix by Cyto stain Kymberly Wray Start: 11-25-2017 Antibody screen MONSE LOPEZ Comment on above: Performed By: #### T SPN ####[facility] [place], [place] [id number] Plan of Treatment Date Care Activity Detail Author Start: 10-08-2030 Tetanus vaccination [facility] Start: 05-26-2028 Tetanus vaccination [facility] Start: 07-01-2023 COVID-19 VACCINE ( season) COVID-19 VACCINE ( season) [facility] Start: 07-01-2023 Influenza vaccination INFLUENZA VACCINE (#1) [facility] Start: 08-09-2022 Screening for malignant neoplasm of cervix PAP SMEAR [facility] Start: 08-31-2021 Screening for malignant neoplasm of cervix PAP SMEAR [facility] Start: 12-01-2020 Hospital Encounter 12/01/2020 Hospital Encounter Obstetrics [facility] Labor & Delivery Start: 08-09-2020 History and physical examination, annual for health maintenance Wellness Visit [facility] Start: 05-25-2020 Depression screening using PHQ-9 (Patient Health Questionnaire 9) score DEPRESSION SCREENING (PHQ9) [facility] Start: 04-04-2020 History and physical examination, annual for health maintenance Wellness Visit [facility] Start: 04-02-2020 End: 04-02-2020 Office Visit 04/02/2020 Office Visit Gastroenterology Fernanda Aleman MD [address] [place] [address] [phone] Delilah Carballo MD [address] [place] [address] [phone] [facility] Start: 07-01-2019 Influenza vaccination INFLUENZA VACCINE (#1) [facility] Start: 07-01-2019 Influenza vaccination given SEQUENTIAL INFLUENZA VACCINE (#1) [facility] Start: 06-08-2019 End: 06-08-2019 Office Visit 06/08/2019 Office Visit Primary Care Kymberly Wray CNP [address] [place] [address] [phone] [facility] Start: 04-26-2019 End: 04-26-2019 Treatment [facility] Start: 04-23-2019 End: 04-23-2019 Treatment 04/23/2019 Treatment Rehabilitation Kymberly Wray CNP [address] [place] [address] [phone] Bronson Woodward PTA [facility] Start: 04-19-2019 End: 04-19-2019 Treatment 04/19/2019 Treatment Rehabilitation Kamala Kymberly Van, [facility] [address] [place] [address] [phone] Bronson Woodward PTA [facility] Start: 04-16-2019 End: 04-16-2019 Treatment 04/16/2019 Treatment Rehabilitation Kymberly Wray Van, [facility] [address] [place] [address] [phone] Bronson Woodward PTA [facility] Start: 04-04-2019 End: 04-04-2020 Vitamin D, 25-hydroxy measurement Vitamin D, Total, 25-OH Lab Routine Vitamin D deficiency Expected: 04/04/2019, Expires: 04/04/2020 [facility] Comment on above: Expected: 04/04/2019, Expires: 0 Start: 03-23-2019 End: 03-23-2019 Appointment 03/23/2019 Appointment Radiology Latoya Fontanez, [facility] [address] [place] [address] [phone] [facility] MRI Start: 12-01-2018 End: 12-01-2018 Ambulatory 12/01/2018 Office Visit Primary Care Marcel Owenie Van, [facility] [address] [place] [address] [phone] [facility] Start: 11-03-2018 End: 11-03-2019 Gastrointestinal pathogens DNA and RNA panel - Stool by RAKAN with non-probe detection Stool/GI PCR Panel Routine Diarrhea, unspecified type Expected: 11/03/2018, Expires: 11/03/2019 [facility] Comment on above: Expected: 11/03/2018, Expires: 0 Start: 2018 Screening for malignant neoplasm of cervix [facility] Start: 07-01-2018 Influenza vaccination given SEQUENTIAL INFLUENZA VACCINE (#1) [facility] Start: 2016 Third diphtheria, tetanus and acellular pertussis (DTaP) vaccination TDAP (ADULT) [facility] Start: 2015 Hepatitis C antibody, confirmatory test Hepatitis C Screening [facility] Start: 2015 Tetanus vaccination TETANUS [facility] Start: 2013 Screening for Chlamydia trachomatis CHLAMYDIA SCREEN [facility] Start: 2012 HIV screening [facility] Start: 2012 Vaccination for human papillomavirus HPV VACCINES (1 - Female 3-dose series) [facility] Start: 2010 HIV screening HIV SCREENING DISCUSSION [facility] Start: 2009 Adolescent depression screening assessment Depression Screening (PHQ9) [facility] Start: 2008 Vaccination for human papillomavirus [facility] Start: 2000 History and physical examination, annual for health maintenance Wellness Visit [facility] Start: 1997 GONORRHEA SCREEN GONORRHEA SCREEN [facility] Start: 1997 Screening for Chlamydia trachomatis [facility] Start: 1997 Screening for malignant neoplasm of cervix PAP SMEAR [facility] Start: 1997 Screening for substance abuse SUBSTANCE ABUSE SCREENING (AUDIT-C) [facility] Start: 1997 Tetanus vaccination TETANUS EVERY 10 YR [facility] End: 04-04-2020 Cobalamin (Vitamin B12) mass conc Vitamin B12 Lab Routine Vitamin B deficiency 1 Occurrences starting 04/04/2019 until 04/04/2020 [facility] Comment on above: 1 Occurrences starting 04/04/2019 until 04/04/2020 End: 04-04-2020 Complete blood count with white cell differential, manual CBC and Differential Lab Routine Well adult exam 1 Occurrences starting 04/04/2019 until 04/04/2020 [facility] Comment on above: 1 Occurrences starting 04/04/2019 until 04/04/2020 End: 04-04-2020 Comprehensive metabolic 2000 panel Comprehensive Metabolic Panel Lab Routine Well adult exam 1 Occurrences starting 04/04/2019 until 04/04/2020 [facility] Comment on above: 1 Occurrences starting 04/04/2019 until 04/04/2020 End: 05-25-2020 Insulin Qn Insulin, Total Lab Routine Obesity (BMI 30.0-34.9) 1 Occurrences starting 05/25/2019 until 05/25/2020 [facility] Comment on above: 1 Occurrences starting 05/25/2019 until 05/25/2020 End: 04-04-2020 Lipid 1996 panel Lipid Panel Lab Routine Screening for lipid disorders 1 Occurrences starting 04/04/2019 until 04/04/2020 [facility] Comment on above: 1 Occurrences starting 04/04/2019 until 04/04/2020 Microscopic examinat ion of vaginal Papanicolaou smear Thinprep Pap Smear Pathology and Cytology Routine Well female exam with routine gynecological exam Ordered: 08/09/2019 [facility] Comment on above: Ordered: 08/09/2019 End: 03-16-2020 MRI of lumbar spine without contrast MR Lumbar Spine Without Contrast STAT Lumbar back pain 1 Occurrences starting 03/16/2019 until 03/16/2020 [facility] Comment on above: 1 Occurrences starting 03/16/2019 until 03/16/2020 End: 04-04-2020 Thyrotropin Qn TSH with Reflex Free T4 Lab Routine Screening for thyroid disorder 1 Occurrences starting 04/04/2019 until 04/04/2020 [facility] Comment on above: 1 Occurrences starting 04/04/2019 until 04/04/2020 Immunizations Immunization Date Immunization Notes Care Provider Petey alberts 08-05-2022 influenza virus vacc ine, unspecified formulation Angeline Perera [employer] Work Phone: [facility] 12-01-2020 diphtheria, tetanus toxoids and acellular pertussis vaccine, unspecified formulation [facility] 12-01-2020 measles, mumps and rubella virus vaccine [facility] 12-01-2020 varicella zoster imm une globulin [facility] 07-31-2018 Influenza, Injectabl e, Quadrivalent, Preservative Free [facility] 05-26-2018 tetanus toxoid, redu won diphtheria toxoid, and acellular pertussis vaccine, adsorbed Latoya [facility] 07-19-2017 Influenza, Injectabl e, Quadrivalent, Preservative Free [facility] 08-26-2010 meningococcal polysaccharide (groups A, C, Y and W-135) diphtheria toxoid conjugate vaccine (MCV4P) [facility] 08-26-2010 tetanus toxoid, redu won diphtheria toxoid, and acellular pertussis vaccine, adsorbed [facility] 11-14-2002 diphtheria, tetanus toxoids and acellular pertussis vaccine, unspecified formulation [facility] 11-14-2002 measles, mumps and rubella virus vaccine [facility] 11-14-2002 trivalent poliovirus vaccine, live, oral [facility] 11-14-2002 varicella virus vaccine [facility] 01-02-1999 diphtheria, tetanus toxoids and acellular pertussis vaccine, unspecified formulation [facility] 07-14-1998 hepatitis B vaccine, pediatric or pediatric/adolescent dosage [facility] 07-14-1998 measles, mumps and rubella virus vaccine [facility] 04-07-1998 trivalent poliovirus vaccine, live, oral [facility] 01-07-1998 diphtheria, tetanus toxoids and acellular pertussis vaccine, unspecified formulation [facility] 01-07-1998 haemophilus influenz ae type b vaccine, PRP-OMP conjugate [facility] 1997 diphtheria, tetanus toxoids and acellular pertussis vaccine, unspecified formulation [facility] 1997 haemophilus influenz ae type b vaccine, PRP-OMP conjugate [facility] 1997 trivalent poliovirus vaccine, live, oral [facility] 1997 diphtheria, tetanus toxoids and acellular pertussis vaccine, unspecified formulation [facility] 1997 haemophilus influenz ae type b vaccine, PRP-OMP conjugate [facility] 1997 hepatitis B vaccine, pediatric or pediatric/adolescent dosage [facility] 1997 trivalent poliovirus vaccine, live, oral [facility] 1997 hepatitis B vaccine, pediatric or pediatric/adolescent dosage [facility] Payers Date Payer Category Payer Unknown [id number] 2021 Unknown [id number] 2019 Worker's Compensation [id number] Unknown [id number] 2019 Unknown [employer] UPERMED PPO xxxxxxxx 2019-Present xxxxxxxx [id number] 2019 Unknown [id number] 2019 Unknown MMO [employer] UPERMED PPO [id number] 2019-Present [id number] 2018 Private Health Insurance [id number] 2018 Private Health Insurance AETNA A ETNA CHOICE POS/POSII/PREMIER CARE/PREMIER CARE PLUS xxxxxxxxxx 2018-Present xxxxxxxxxx [id number] 2018 Private Health Insurance [id number] 1997 Unknown [id number]. [id number] 1997 Unknown [id number]. 2.903 1997 Unknown [id number]. 2.903 1997 Unknown [id number] [id number]. 2.903 1997 Unknown [id number] [id number]. 2.900 1997 Unknown [id number] [id number]. 2.900 1997 Unknown [id number] [id number]. 2.900 1997 Unknown [id number] [id number]. 2.903 1997 Unknown [id number] [id number]. 2.903 1997 Unknown [id number] [id number]. 2.902 1997 Unknown [id number] [id number]. 2.983 1997 Unknown [id number] [id number]. 2.983 1997 Unknown [id number]. 2.903 Worker's Compensation [employer]ER[employer] WORK[employer] COMPENSATION xxxxxxxxx Effective for all dates xxxxxxxxx [id number] Social History Date Type Detail Facility Start: 06-03-2017 End: 08-19-2017 Tobacco smoking status WVIS Unknown if ever smoked [facility] Work Phone: Start: 1995 Sex Assigned At Not on file O [email or web address] Work Phone: Start: 11-03-2018 End: 09-28-2023 Tobacco smoking status NHIS Never smoker [facility] Start: 04-04-2019 History SDOH Alcohol Frequency 2 [facility] Start: 04-04-2019 History SDOH Social Connections Phone 5 [facility] Start: 04-04-2019 History SDOH Social Connections Confucianism 3 [facility] Start: 04-04-2019 History SDOH Social Connections Membership 1 [facility] Start: 04-04-2019 History SDOH Physica l Activity DPW 0 [facility] Start: 04-04-2019 History SDOH Education 16 [facility] Start: 07-12-2019 End: 11-14-2020 Alcohol intake Lifetime non-drinker (finding) [facility] Start: 09-16-2019 End: 09-28-2023 Alcohol intake Current non-drinker of alcohol (finding) [facility] Exposure to SARS-CoV -2 (event) Not sure [facility] Start: 12-03-2020 End: 09-28-2023 Tobacco use and exposure Never used [facility] Start: 03-14-2020 [facility] Start: 09-28-2023 History of Social function [facility] Start: 09-28-2023 Tobacco use panel [facility] Start: 11-23-2017 Gender identity Identifies as female gender (finding) [facility] History of Present illness Narrative 09-28-2023 KELLEE Vitale - 09/28/2023 1:45 PM EST Note Date & Type Note Facility 09-28-2023 History of Presen t illness Narrative HPI Elizabeth Jarvis female 1995 presents to the [facility] with Chief Complaint Patient presents with Other Possible trush, noticed this morning Patient presents with a foul taste in her mouth as she states started this morning. States she thinks she saw white coating on her tongue but she rushed her tongue vigorously this morning. States this morning she had a foul taste in her mouth but she is not experiencing it at this time. States she has had a postnasal drip but denies any URI symptoms. Denies any cough or fever. History Allergies Allergen Reactions Latex Nystatin Hives Current Outpatient Medications Medication Sig lidocaine 5 % Patch patch Place 1 patch on skin every 24 hours. Max of 12 hours of application then remove nitrofurantoin, macrocrystal-monohydrate, 100 MG Cap Take 1 capsule by mouth 2 times daily. Take w/ food/milk orphenadrine ER 100 MG Tab SR 12 HR Take 1 tablet by mouth 2 times daily. predniSONE 20 MG Tab tablet Take 1 tablet by mouth daily. Vit-DSS-Fe Cbn-FA (PRENA-CAP PO) Take by mouth. promethazine-dextromethorphan 6.25-15 MG/5ML Syrup Take 5 mL by mouth every 6 hours as needed for Cough. traMADol 50 MG Tab tablet Take 1 tablet by mouth every 4 hours as needed for up to 3 days. History reviewed. No pertinent family history. Past Medical History: Diagnosis Date Back pain Past Surgical History: Procedure Laterality Date SECTION 2x TONSILLECTOMY ADENOIDECTOMY Social History Socioeconomic History Marital status: Spouse name: Not on file Number of children: Not on file Years of education: Not on file Highest education level: Not on file Occupational History Not on file Tobacco Use Smoking status: Never Smokeless tobacco: Never Substance and Sexual Activity Alcohol use: No Drug use: No Sexual activity: Not on file Other Topics Concern Not on file Social History Narrative Not on file Social Determinants of Health Financial Resource Strain: Not on file Food Insecurity: Not on file Transportation Needs: Not on file Physical Activity: Not on file Stress: Not on file Social Connections: Not on file Intimate Partner Violence: Not on file Housing Stability: Not on file ROS Review of Systems 8 systems reviewed with patient, negative unless specifically mentioned in history of present illness PHYSICAL EXAM Visit Vitals BP 115/55 (BP Location: Right arm, BP Position: Sitting) Pulse 84 Temp 97.5 F (36.4 C) (Temporal) Resp 18 Ht 1.727 m (5' 8) Wt 83.9 kg (185 lb) SpO2 99% BMI 28.13 kg/m Physical Exam Vitals and nursing note reviewed. Constitutional: Appearance: Normal appearance. HENT: Head: Normocephalic. Right Ear: Tympanic membrane, ear canal and external ear normal. Left Ear: Tympanic membrane, ear canal and external ear normal. Nose: Nose normal. Mouth/Throat: Mouth: Mucous membranes are moist. Pharynx: Oropharynx is clear. Eyes: Conjunctiva/sclera: Conjunctivae normal. Cardiovascular: Rate and Rhythm: Normal rate and regular rhythm. Pulses: Normal pulses. Heart sounds: Normal heart sounds. Pulmonary: Effort: Pulmonary effort is normal. Breath sounds: Normal breath sounds. Abdominal: General: Bowel sounds are normal. Musculoskeletal: General: Normal range of motion. Cervical back: Normal range of motion and neck supple. Skin: General: Skin is warm and dry. Neurological: General: No focal deficit present. Mental Status: She is alert. RESULTS No results found for this or any previous visit (from the past 1 hour(s)). ASSESSMENT/PLAN 1. Post-nasal drainage 2. PND (post-nasal drip) Orders Placed This Encounter AMB REFERRAL TO ENT Physical exam is unremarkable. Patient states she wishes to see a ENT in case of ongoing or recurrent symptoms so a referral was replaced. I did advise the patient to use Flonase and decongestant for postnasal drip. Follow up if symptoms worsen or fails to improve over time. The risk and benefits of therapy were discussed with the patient. Alarm symptoms were discussed, along with reasons for contacting the office or going to the ER. Questions were answered for the patient. Follow up if symptoms worsen or fails to improve over time. If symptoms worsen patient was advised to follow up in our office, primary care provider or the Emergency Dept. Benefits, Risks, Contraindications, and Complications of recommended treatments were explained. The patient understands and agrees to proceed with plan. KELLEE Vitale 09/28/2023 documented in this encounter [employer] Instructions 09-28-2023 Patient Instructions Note Date & Type Note Facility 09-28-2023 Instructions KELLEE Vitale - 09/28/2023 1:45 PM EST Take Flonase as we discussed for the next 3-5 days Continue taking decongestant documented in this encounter [facility] Evaluation note Note Date & Type Note Facility Evaluation note Diagnosis Post-nasal drainage- Primary Unspecified sinusitis (chronic) PND (post-nasal drip) Postnasal drip documented in this encounter [facility] Reason for referral (narrative) Consultation (Routine) - New Request Note Date & Type Note Facility Reason for referral (narrati ve) Specialty Diagnoses / Procedures Referred By Jose castle Referred To Contact Otolaryngology Diagnoses PND (post-nasal drip) Angeline Perera APRN-CNP [address] [place] [address] Referral ID Status Reason Start Date Expiration Date V isits Requested Visits Authorized [id number] New Request 09/28/2023 10/22/2024 1 1 [facility] Summary Purpose Family History No Family History Records FoundNo Family History Records FoundNo Family History Records FoundNo Family History Records FoundNo Family History Records FoundNo Family History Records FoundNo Family History Records FoundNo Family History Records FoundNo Family History Records FoundNo Family History Records FoundNo Family History Records FoundNo Family History Records Found Advance Directives No Advanced Directives Records FoundDocuments on File Type Date 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 Advance Directives and Living Will Documents on File Type Date 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 Advance Directives and Living Will Documents on File Type Date 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 Advance Directives and Livin g Will 05/13/2019 3:21 PM Documents on File Type Date 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 Advance Directives and Livin g Will 07/12/2019 10:20 AM Documents on File Type Date 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 Advance Directives and Livin g Will 12/25/2019 12:58 PM Documents on File Type Date 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 Advance Directives and Livin g Will 03/19/2020 12:00 AM Documents on File Type Date 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 Advance Directives and Livin g Will 03/19/2020 12:00 AM Documents on File Type Date 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 Advance Directives and Livin g Will 11/24/2020 12:00 AM Latest Code Status on File Code Status Date Activated Date Inactivated Comments Full Code 12/01/2020 12:27 PM 12/03/2020 2:10 PM Full Code 12/01/2020 6:32 AM 12/01/2020 11:17 AM Full Code 11/14/2020 2:46 PM 11/14/2020 6:01 PM Documents on File Type Date 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 Problem List Items Addressed This Visit None Visit Diagnoses Diarrhea, unspecified type - Primary Start using imodium as needed for loose stool. Relevant Medications loperamide (IMODIUM) 2 mg capsule Other Relevant Orders Stool/GI PCR Panel Hemorrhoids, unspecified hemorrhoid type Use ansuol twice daily. Relevant Medications hydrocortisone (ANUSOL-HC) 25 mg suppository Start a diet log. Document food and drink intake along with stools. Stop drinking milk products for4 weeks. You can use fiber supplements to bulk stools. Diarrhea: Care Instructions Your Care Instructions Diarrhea is loose, watery stools (bowel movements). The exact cause is often hard to find. Sometimes diarrhea is your body's way of getting rid of what caused an upset stomach. Viruses, food poisoning, and many medicines can cause diarrhea. Some people get diarrhea in response to emotional stress, anxiety, or certain foods. Almost everyone has diarrhea now and then. It usually isn't serious, and your stools will return tonormal soon. The important thing to do is replace the fluids you have lost, so you can prevent dehydration. The doctor has checked you carefully, but problems can develop later. If you notice any problems ornew symptoms, get medical treatment right away. Follow-up care is a childs part of your treatment and safety. Be sure to make and go to all appointments, and call your doctor if you are having problems. It's also a good idea to know your test resultsand keep a list of the medicines you take. How can you care for yourself at home? Watch for signs of dehydration, which means your body has lost too much water. Dehydration is a serious condition and should be treated right away. Signs of dehydration are: ? Increasing thirst and dry eyes and mouth. ? Feeling faint or lightheaded. ? Darker urine, and a smaller amount of urine than normal. To prevent dehydration, drink plenty of fluids, enough so that your urine is light yellow or clear like water. Choose water and other caffeine-free clear liquids until you feel better. If you have kidney, heart, or liver disease and have to limit fluids, talk with your doctor before you increase the amount of fluids you drink. Begin eating small amounts of mild foods the next day, if you feel like it. ? Try yogurt that has live cultures of Lactobacillus. (Check the label.) ? Avoid spicy foods, fruits, alcohol, and caffeine until 48 hours after all symptoms are gone. ? Avoid chewing gum that contains sorbitol. ? Avoid dairy products (except for yogurt with Lactobacillus) while you have diarrhea and for 3 days after symptoms are gone. The doctor may recommend that you take pqej-gfp-kkkcwru medicine, such as loperamide (Imodium), if you still have diarrhea after 6 hours. Read and follow all instructions on the label. Do not use this medicine if you have bloody diarrhea, a high fever, or other signs of serious illness. Call your doctor if you think you are having a problem with your medicine. When should you call for help? Call 911 anytime you think you may need emergency care. For example, call if: You passed out (lost consciousness). Your stools are maroon or very bloody. Call your doctor now or seek immediate medical care if: You are dizzy or lightheaded, or you feel like you may faint. Your stools are black and look like tar, or they have streaks of blood. You have new or worse belly pain. You have symptoms of dehydration, such as: ? Dry eyes and a dry mouth. ? Passing only a little dark urine. ? Feeling thirstier than usual. You have a new or higher fever. Watch closely for changes in your health, and be sure to contact your doctor if: Your diarrhea is getting worse. You see pus in the diarrhea. You are not getting better after 2 days (48 hours). Where can you learn more? Log into your personal health record on https://[employer].Animated Speech and enter W335 in the Education box to learn more about Diarrhea: Care Instructions. Current as of: July 23, 2018 Content Version: 09.08 [employer]. Care instructions adapted under license by your healthcare professional. If you have questions about a medical condition or this instruction, always ask your healthcare professional. [employer] disclaims any warranty or liability for your use of this information. Diarrhea: Care Instructions Your Care Instructions Diarrhea is loose, watery stools (bowel movements). The exact cause is often hard to find. Sometimes diarrhea is your body's way of getting rid of what caused an upset stomach. Viruses, food poisoning, and many medicines can cause diarrhea. Some people get diarrhea in response to emotional stress, anxiety, or certain foods. Almost everyone has diarrhea now and then. It usually isn't serious, and your stools will return tonormal soon. The important thing to do is replace the fluids you have lost, so you can prevent dehydration. The doctor has checked you carefully, but problems can develop later. If you notice any problems ornew symptoms, get medical treatment right away. Follow-up care is a childs part of your treatment and safety. Be sure to make and go to all appointments, and call your doctor if you are having problems. It's also a good idea to know your test resultsand keep a list of the medicines you take. How can you care for yourself at home? Watch for signs of dehydration, which means your body has lost too much water. Dehydration is a serious condition and should be treated right away. Signs of dehydration are: ? Increasing thirst and dry eyes and mouth. ? Feeling faint or lightheaded. ? Darker urine, and a smaller amount of urine than normal. To prevent dehydration, drink plenty of fluids, enough so that your urine is light yellow or clear like water. Choose water and other caffeine-free clear liquids until you feel better. If you have kidney, heart, or liver disease and have to limit fluids, talk with your doctor before you increase the amount of fluids you drink. Begin eating small amounts of mild foods the next day, if you feel like it. ? Try yogurt that has live cultures of Lactobacillus. (Check the label.) ? Avoid spicy foods, fruits, alcohol, and caffeine until 48 hours after all symptoms are gone. ? Avoid chewing gum that contains sorbitol. ? Avoid dairy products (except for yogurt with Lactobacillus) while you have diarrhea and for 3 days after symptoms are gone. The doctor may recommend that you take sbyk-jkl-mioczap medicine, such as loperamide (Imodium), if you still have diarrhea after 6 hours. Read and follow all instructions on the label. Do not use this medicine if you have bloody diarrhea, a high fever, or other signs of serious illness. Call your doctor if you think you are having a problem with your medicine. When should you call for help? Call 911 anytime you think you may need emergency care. For example, call if: You passed out (lost consciousness). Your stools are maroon or very bloody. Call your doctor now or seek immediate medical care if: You are dizzy or lightheaded, or you feel like you may faint. Your stools are black and look like tar, or they have streaks of blood. You have new or worse belly pain. You have symptoms of dehydration, such as: ? Dry eyes and a dry mouth. ? Passing only a little dark urine. ? Feeling thirstier than usual. You have a new or higher fever. Watch closely for changes in your health, and be sure to contact your doctor if: Your diarrhea is getting worse. You see pus in the diarrhea. You are not getting better after 2 days (48 hours). Where can you learn more? Log into your personal health record on https://Sn[employer].Animated Speech and enter W335 in the Education box to learn more about Diarrhea: Care Instructions. Current as of: July 23, 2018 Content Version: .[id number] [employer]. Care instructions adapted under license by your healthcare professional. If you have questions about a medical condition or this instruction, always ask your healthcare professional. [employer] disclaims any warranty or liability for your use of this information. in this encounter* Patient Instructions* Latoya Fontanez CNP - 03/16/2019 12:30 PM EDT I have ordered steroids for you to take. Please take these as directed. Please note that this medication can cause you to be hyper/jittery as well as increase her hunger and thirst drive. Please takethis medication with food as it can cause an upset stomach. Please continue take all medications as ordered. documented in this encounter* Patient Instructions* Kymberly Wray CNP - 04/04/2019 10:37 AM EDT Problem List Items Addressed This Visit Other Lumbar back pain Relevant Orders Ambulatory ref to Therapy (PT/OT/ST) Other Visit Diagnoses Well adult exam - Primary Call your insurance to verify Obesity coverage Relevant Orders CBC and Differential Comprehensive Metabolic Panel Vitamin D deficiency Relevant Orders Vitamin D, Total, 25-OH Screening for thyroid disorder Relevant Orders TSH with Reflex Free T4 Screening for lipid disorders Relevant Orders Lipid Panel Vitamin B deficiency Relevant Orders Vitamin B12 I have ordered blood work for you to have completed. Please have this completed at your earliest convenience. This blood work will need to be completed while fasting. This means nothing to eat or drink for 6-8 hours prior to having it drawn. You can however, drink water and take medications as ordered during this time. I will review your labs via [employer] or the office will with your results. Well Visit, Ages 18 to 50: Care Instructions Your Care Instructions Physical exams can help you stay healthy. Your doctor has checked your overall health and may have suggested ways to take good care of yourself. He or she also may have recommended tests. At home, you can help prevent illness with healthy eating, regular exercise, and other steps. Follow-up care is a childs part of your treatment and safety. Be sure to make and go to all appointments, and call your doctor if you are having problems. It's also a good idea to know your test resultsand keep a list of the medicines you take. How can you care for yourself at home? Reach and stay at a healthy weight. This will lower your risk for many problems, such as obesity, diabetes, heart disease, and high blood pressure. Get at least 30 minutes of physical activity on most days of the week. Walking is a good choice. You also may want to do other activities, such as running, swimming, cycling, or playing tennis or team sports. Discuss any changes in your exercise program with your doctor. Do not smoke or allow others to smoke around you. If you need help quitting, talk to your doctor about stop-smoking programs and medicines. These can increase your chances of quitting for good. Talk to your doctor about whether you have any risk factors for sexually transmitted infections (STIs). Having one sex partner (who does not have STIs and does not have sex with anyone else) is a good way to avoid these infections. Use control if you do not want to have children at this time. Talk with your doctor about thechoices available and what might be best for you. Protect your skin from too much sun. When you're outdoors from 10 a.m. to 4 p.m., stay in the shadeor cover up with clothing and a hat with a wide brim. Wear sunglasses that block UV rays. Even whenit's cloudy, put broad-spectrum sunscreen (SPF 30 or higher) on any exposed skin. See a dentist one or two times a year for checkups and to have your teeth cleaned. Wear a seat belt in the car. Follow your doctor's advice about when to have certain tests. These tests can spot problems early. For everyone Cholesterol. Have the fat (cholesterol) in your blood tested after age 20. Your doctor will tell you how often to have this done based on your age, family history, or other things that can increase your risk for heart disease. Blood pressure. Have your blood pressure checked during a routine doctor visit. Your doctor will tell you how often to check your blood pressure based on your age, your blood pressure results, and other factors. Vision. Talk with your doctor about how often to have a glaucoma test. Diabetes. Ask your doctor whether you should have tests for diabetes. Colon cancer. Your risk for colorectal cancer gets higher as you get older. Some experts say that adults should start regular screening at age 50 and stop at age 75. Others say to start before age 50or continue after age 75. Talk with your doctor about your risk and when to start and stop screening. For women Breast exam and mammogram. Talk to your doctor about when you should have a clinical breast exam and a mammogram. Medical experts differ on whether and how often women under 50 should have these tests. Your doctor can help you decide what is right for you. Cervical cancer screening test and pelvic exam. Begin with a Pap test at age 21. The test often is part of a pelvic exam. Starting at age 30, you may choose to have a Pap test, an HPV test, or both tests at the same time (called co- testing). Talk with your doctor about how often to have testing. Tests for sexually transmitted infections (STIs). Ask whether you should have tests for STIs. You may be at risk if you have sex with more than one person, especially if your partners do not wear condoms. For men Tests for sexually transmitted infections (STIs). Ask whether you should have tests for STIs. You may be at risk if you have sex with more than one person, especially if you do not wear a condom. Testicular cancer exam. Ask your doctor whether you should check your testicles regularly. Prostate exam. Talk to your doctor about whether you should have a blood test (called a PSA test) for prostate cancer. Experts differ on whether and when men should have this test. Some experts suggest it if you are older than 45 and are -[place] or have a father or brother who got prostatecancer when he was younger than 65. When should you call for help? Watch closely for changes in your health, and be sure to contact your doctor if you have any problems or symptoms that concern you. Where can you learn more? Log into your personal health record on https://TruantTodayt.Animated Speech and enter P072 in the Education box to learn more about Well Visit, Ages 18 to 50: Care Instructions. Current as of: October 12, 2018 Content Version: 12.0 [id number] [employer]. Care instructions adapted under license by your healthcare professional. If you have questions about a medical condition or this instruction, always ask your healthcare professional. [employer] disclaims any warranty or liability for your use of this information. documented in this encounter* Patient Instructions* Kymberly Wray CNP - 05/25/2019 9:04 AM EDT Problem List Items Addressed This Visit Other Obesity (BMI 30.0-34.9) - Primary PT and the director [facility] will call you to schedule your appointments I want you to maintain a 1200 calorie low carb/high protein until you follow up with the director [facility]. Walking 30 minutes 6 days per week until you see physical therapy. Have your lab work completed within the next 2 week. I will see you back in 2 weeks. Relevant Orders Ambulatory referral to Nutrition Services Insulin, Total Ambulatory ref to Therapy (PT/OT/ST) Lumbar back pain Relevant Orders Ambulatory ref to Therapy (PT/OT/ST) Body Mass Index: Care Instructions Your Care Instructions Body mass index (BMI) can help you see if your weight is raising your risk for health problems. It uses a formula to compare how much you weigh with how tall you are. A BMI lower than 18.5 is considered underweight. A BMI between 18.5 and 24.9 is considered healthy. A BMI between 25 and 29.9 is considered overweight. A BMI of 30 or higher is considered obese. If your BMI is in the normal range, it means that you have a lower risk for weight-related health problems. If your BMI is in the overweight or obese range, you may be at increased risk for weight-related health problems, such as high blood pressure, heart disease, stroke, arthritis or joint pain, and diabetes. If your BMI is in the underweight range, you may be at increased risk for health problems such as fatigue, lower protection (immunity) against illness, muscle loss, bone loss, hair loss,and hormone problems. BMI is just one measure of your risk for weight-related health problems. You may be at higher risk for health problems if you are not active, you eat an unhealthy diet, or you drink too much alcohol or use tobacco products. Follow-up care is a childs part of your treatment and safety. Be sure to make and go to all appointments, and call your doctor if you are having problems. It's also a good idea to know your test resultsand keep a list of the medicines you take. How can you care for yourself at home? Practice healthy eating habits. This includes eating plenty of fruits, vegetables, whole grains, lean protein, and low-fat dairy. If your doctor recommends it, get more exercise. Walking is a good choice. Bit by bit, increase theamount you walk every day. Try for at least 30 minutes on most days of the week. Do not smoke. Smoking can increase your risk for health problems. If you need help quitting, talk to your doctor about stop-smoking programs and medicines. These can increase your chances of quittingfor good. Limit alcohol to 2 drinks a day for men and 1 drink a day for women. Too much alcohol can cause health problems. If you have a BMI higher than 25 Your doctor may do other tests to check your risk for weight-related health problems. This may include measuring the distance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 BLE Intervention Quadruped alt leg (NV) Parameters Quadruped alt arms (NV) PT Treatment Times Therex Total Time 23 Manual Therapy Total Time 5 Direct Treatment Time 28 Total Treatment Time 28 Goals: Physical Therapy Ortho Goals: 1. Pt will demonstrate improved FOTO outcome measure by at least 18 points indicating functional gains. 6 weeks. 2. Pt will demonstrate improved core strength allowing for ease of lifting / carrying her child. 6 weeks. 3. Pt will report decreased pain frequency and intensity by at least 50%. 6 weeks. IE date: 04/11/2019 Progress report due: Recert due: visit # 12 Patient Education: Written HEP with patient demonstrated understanding, verbalized understanding and written information provided . Post-Treatment Pain Scale: 3 Assessment: Patient had an expected response to treatment. Pt very apprehensive with TM but did well today. Pt very tender over lumbar spine during PA mobs, only tolerates Gr. I. Pt fatigues quickly secondary to deconditioning. No change in sxs reported at end of session, only muscle fatigue. Skilled Intervention demonstrated by modifications of treatment per exercise log including assessment of patient's response and safety interventions per exercise log. Progress towards goals as expected. Plan for Next Visit: Treatment Visit with focus on increasing core stability Page Mccarthy PTA STATE LICENSE, [id number] documented in this encounter* Carmen Hou LPN - 07/13/2019 1:45 PM EDT Voicemail left to follow up on recent ED visit. Identified self as a SPECIAL POLICE OFFICER with [facility] calling regarding the recent trip to the ED. Requested the patient schedule an ED follow up as directed at time of discharge. Also, to call Kymberly Wray CNP's office at [phone] with any questions. documented in this encounter* Delilah Carballo MD - 04/29/2020 4:53 PM EDT Elizabeth Jarvis 24 y.o. 1995 female Reason for Consult: Chronic diarrhea HPI: 24-year-old female with no significant past medical history says she has loose bowel since October.5-6 times a day semisolid to liquid in nature no abdominal cramps no blood or mucus in the stool. She said she is now for last 8- week and her diarrhea slowed down. Now 2 or 3 bowel movement a day which is semisolid sometimes mucus but no blood no abdominal cramps. Past Medical History: Past Medical History: Diagnosis Date Injury of back Obesity Surgical History & Procedures: Past Surgical History: Procedure Laterality Date SECTION, LOW TRANSVERSE TONSILLECTOMY Social History: Social History Socioeconomic History Marital status: Spouse name: Amrit Number of children: 1 Years of education: Not on file Highest education level: Associate degree: academic program Occupational History Not on file Social Needs Financial resource strain: Not hard at all Food insecurity Worry: Never true Inability: Never true Transportation needs Medical: No Non-medical: No Tobacco Use Smoking status: Never Smoker Smokeless tobacco: Never Used Substance and Sexual Activity Alcohol use: Never Frequency: Monthly or less Drug use: Never Sexual activity: Yes Partners: Male control/protection: Patch Lifestyle Physical activity Days per week: 0 days Minutes per session: 0 min Stress: To some extent Relationships Social connections Talks on phone: More than three times a week Gets together: More than three times a week Attends evangelical service: More than 4 times per year Active member of club or organization: Yes Attends meetings of clubs or organizations: More than 4 times per year Relationship status: Other Topics Concern Not on file Social History Narrative Not on file Current Medications: Current Outpatient Medications Medication Sig Dispense Refill ondansetron (ZOFRAN ODT) 4 MG disintegrating tablet Dissolve 1 (one) tablet (4 mg total) on top of tongue every 8 (eight) hours as needed for nausea . 15 tablet 0 No current facility-administered medications for this visit. Review of Systems Constitutional: Negative for appetite change and unexpected weight change. HENT: Negative for voice change. Respiratory: Negative for cough, choking and shortness of breath. Cardiovascular: Negative for chest pain and leg swelling. Gastrointestinal: Positive for diarrhea. Negative for abdominal pain, anal bleeding, blood in stool, constipation, nausea, rectal pain and vomiting. Genitourinary: Negative for hematuria. Musculoskeletal: Negative for arthralgias and joint swelling. Skin: Negative for pallor. Neurological: Negative for dizziness, tremors and weakness. Hematological: Negative for adenopathy. Does not bruise/bleed easily. Psychiatric/Behavioral: Negative for confusion. Physical Exam Constitutional: Appearance: Normal appearance. Eyes: Pupils: Pupils are equal, round, and reactive to light. Cardiovascular: Pulses: Normal pulses. Heart sounds: Normal heart sounds. Pulmonary: Breath sounds: Normal breath sounds. Abdominal: General: Bowel sounds are normal. Palpations: Abdomen is soft. There is no mass. Tenderness: There is no abdominal tenderness. Skin: Coloration: Skin is not jaundiced. Neurological: General: No focal deficit present. Mental Status: She is alert and oriented to person, place, and time. Psychiatric: Behavior: Behavior normal. No visits with results within 30 Day(s) from this visit. Latest known visit with results is: Lab Draw on 03/13/2020 Component Date Value Ref Range Status SARS-CoV-2 RNA 03/13/2020 Not Detected Not Detected Final This test was performed under the FDA's Emergency Use Authorization (EUA). Testing was performed using the Alejandra SARS-CoV-2 assay on the Kevyn Alejandra 6800 System. This test has not been approved for use in asymptomatic patients and its performance in this patient population has not been evaluated. Negative results do not rule out the presence of SARS-CoV-2/COVID-19. Fact sheets for this EUA can be found at the following links: For Healthcare Providers: https://www.fda.gov/media/883912/download For Patients: https://www.fda.gov/media/260330/download Assessment & Plan: Diarrhea probably IBS. Now she is for 8-week and diarrhea is better. In view of will avoid any colonoscopy and anti-IBS medication like Viberzi. I asked her to take high-fiber dietand take Imodium on as needed basis. If she has blood in the stool or diarrhea persist she will call me back. Delilah Carballo MD documented in this encounter* Alona Pritchett MD - 12/03/2020 5:39 AM EST Section Progress Note Assessment/Plan: Status post section: Doing well postoperatively. Discharge home with standard precautions and return to office in 4-6 weeks. Subjective: Day 2: Delivery The patient feels well. The patient denies emotional concerns. Pain is well controlled with currentmedications. Urinary output is adequate. The patient is ambulating well. The patient is tolerating a normal diet. Patient reports flatus yes. Objective: Vital signs in last 24 hours: Temp: [97.6 F (36.4 C)-98.5 F (36.9 C)] 98.5 F (36.9 C) Heart Rate: [64-79] 64 Resp: [14-16] 14 BP: (102-111)/(63-70) 111/70 * Alona Pritchett MD - 12/02/2020 7:08 AM EST Section Progress Note Assessment/Plan: Status post section: Doing well postoperatively. Continue current care. Subjective: Day 1: Delivery The patient feels well. The patient denies emotional concerns. Pain is well controlled with currentmedications. Urinary output is adequate. The patient is ambulating well. The patient is tolerating a normal diet. Patient reports flatus no. Objective: Vital signs in last 24 hours: Temp: [97.3 F (36.3 C)-98.6 F (37 C)] 97.6 F (36.4 C) Heart Rate: [56-78] 62 Resp: [14] 14 BP: (97-121)/(46-97) 97/58 documented in this encounter* Kymberly Wray CNP - 05/25/2019 8:28 AM EDT INITIAL OBESITY OUTPATIENT HPI Patient presents to the office today for initial consultation for weight loss related to obesity. 45 minutes spent with patient, greater than 50% spent counseling/coordinating care Obesity History Weight in late teens: 170 lb. Period of greatest weight gain: 30 lb during 16-17 years of age with Depo-Provera Lowest adult weight: 190 Highest adult weight: 210 Amount of time at present weight: 5 years at 210 lb. Years of weight struggles: 7 years History of Weight Loss Efforts Greatest amount of weight lost: 5 lb over 6 months Amount of time that loss was maintained: 6 months Circumstances associated with regain of weight: relationship Successful weight loss techniques attempted: Keto diet Unsuccessful weight loss techniques attempted: self-directed dieting, very low calorie diet and Weight Watchers Current Exercise Habits walking due to back injury Current Eating Habits Number of regular meals per day: 2 lunch and dinner Number of snacking episodes per day: 2 Who shops for food? patient Who prepares food? Patient and Who eats with patient? patient and mother in-law twice per week Binge behavior?: yes - prior history of binge eating Purge behavior? no Anorexic behavior? no Eating precipitated by stress? yes - has made an effort to stop this Guilt feelings associated with eating? no Food budget- 50 per week Food insecurities in the last 12 months? no Other Potential Contributing Factors Use of alcohol: average 1 drinks/month Use of medications that may cause weight gain control Xulane History of past abuse? none Psych History: postpatrum depression Comorbidities: L5-S1 lumbar back pain since age 19 Sleep quality: 8 hours per night The following portions of the patient's history were reviewed and updated as appropriate: allergies, current medications and problem list. Family History Problem Relation Age of Onset Other (back pain) Mother No Known Problems Father No Known Problems Sister No Known Problems Brother No Known Problems Son No Known Problems Paternal Aunt No Known Problems Paternal Uncle Heart disease Maternal Grandmother Diabetes Maternal Grandmother Hypertension Maternal Grandmother Hyperlipidemia Maternal Grandmother No Known Problems Sister No Known Problems Paternal Aunt No Known Problems Paternal Aunt Social History Socioeconomic History Marital status: Spouse name: Amrit Number of children: 1 Years of education: Not on file Highest education level: Associate degree: academic program Occupational History Not on file Social Needs Financial resource strain: Not hard at all Food insecurity: Worry: Never true Inability: Never true Transportation needs: Medical: No Non-medical: No Tobacco Use Smoking status: Never Smoker Smokeless tobacco: Never Used Substance and Sexual Activity Alcohol use: Yes Frequency: Monthly or less Drug use: Never Sexual activity: Yes Partners: Male control/protection: Patch Lifestyle Physical activity: Days per week: 0 days Minutes per session: 0 min Stress: To some extent Relationships Social connections: Talks on phone: More than three times a week Gets together: More than three times a week Attends evangelical service: More than 4 times per year Active member of club or organization: Yes Attends meetings of clubs or organizations: More than 4 times per year Relationship status: Other Topics Concern Not on file Social History Narrative Not on file Past Surgical History: Procedure Laterality Date SECTION, LOW TRANSVERSE TONSILLECTOMY Allergies Allergen Reactions Milk GI Intolerance Latex Nystatin Hives Patient's Medications New Prescriptions No medications on file Previous Medications DICLOFENAC SODIUM 1 % GEL Apply 2 (two) g topically 4 (four) times a day . XULANE 150-35 MCG/24 HR PATCH APPLY ONE PATCH TOPICALLY DIRECTED ONCE A WEEK Modified Medications No medications on file Discontinued Medications No medications on file Review of Systems Review of Systems Constitutional: Positive for fatigue and unexpected weight change. Negative for activity change. HENT: Negative. Respiratory: Negative. Negative for chest tightness and shortness of breath. Cardiovascular: Negative for chest pain and palpitations. Gastrointestinal: Negative. Negative for abdominal pain. Endocrine: Negative. Genitourinary: Negative. Musculoskeletal: Positive for arthralgias, back pain and myalgias. Skin: Negative. Allergic/Immunologic: Negative. Neurological: Negative for weakness. Tremors: Psychiatric/Behavioral: Negative. Vitals: 05/25/19 0821 BP: 104/63 BP Location: Right arm Patient Position: Sitting BP Cuff Size: X-large Adult Pulse: 72 Resp: 18 Temp: 98 F (36.7 C) TempSrc: Temporal SpO2: 96% Weight: 95.3 kg (210 lb) Body mass index is 32.89 kg/m . Physical Exam Physical Exam Constitutional: She is oriented to person, place, and time. She appears well- developed and well-nourished. HENT: Head: Normocephalic and atraumatic. Eyes: Conjunctivae are normal. Neck: Normal range of motion. Cardiovascular: Normal rate, regular rhythm, normal heart sounds and intact distal pulses. Pulmonary/Chest: Effort normal and breath sounds normal. Abdominal: Soft. Bowel sounds are normal. Musculoskeletal: Lumbar back: She exhibits decreased range of motion, pain and spasm. She exhibits normal pulse. Neurological: She is alert and oriented to person, place, and time. Skin: Skin is warm and dry. Psychiatric: She has a normal mood and affect. Nursing note and vitals reviewed. Waist circumference 37 inches Waist/hip ratio 47 inches Par-Q score 4 Assessment/Plan Problem List Items Addressed This Visit Other Obesity (BMI 30.0-34.9) - Primary PT and the director [facility] will call you to schedule your appointments I want you to maintain a 1200 calorie low carb/high protein until you follow up with the director [facility]. Walking 30 minutes 6 days per week until you see physical therapy. Have your lab work completed within the next 2 week. I will see you back in 2 weeks. Relevant Orders Ambulatory referral to Nutrition Services Insulin, Total Ambulatory ref to Therapy (PT/OT/ST) Lumbar back pain Relevant Orders Ambulatory ref to Therapy (PT/OT/ST) 1. Diagnostic studies to rule out secondary causes of obesity: TSH, insulin resistance, routine labwork 2. General patient education ? Obesity-related excess mortality declines with age and may disappear after age 75: yes ? Weight loss has been proven to ameliorate risk factors for cardiac and other disease but no long-term studies of impact of weight loss on mortality as of 1997: yes ? Average sustained weight loss in long-term studies w/lifestyle interventions alone is 10-15lb: yes ? Importance of long-term maintenance tx in weight loss: yes ? Use non-food self-rewards to reinforce behavior changes: yes ? Elicit support from others; identify saboteurs: yes ? Practical target weight is usually around 2 BMI units below current weight: 210 lbs. for this patient. Pt's desired target weight is 170: yes 3. Diet interventions: diet diary indefinitely and high protein low carb ? Risks of dieting were reviewed, including fatigue, temporary hair loss, gallstone formation, gout, and with very low calorie diets, electrolyte abnormalities, nutrient inadequacies, and loss of lean body mass. ? Proper food choices reviewed: yes ? Preparation techniques reviewed: yes ? Careful meal planning; avoiding ad hoc eating: yes ? Stimulus control to control unhealthy eating: yes ? Handouts given: none 4. Exercise intervention: ? Informal measures, e.g. taking stairs instead of elevator: yes ? Formal exercise regimen: yes - walking due to back injury 5. Other behavioral treatment: N/A 6. Other treatment: referral for dietican and therapy 7. Patient to keep a weight log that we will review at follow up. 8. Follow up: 2 weeks and as needed. For any new medications prescribed today, patient was educated about indications for the medication, how to take the medication and potential side effects of the medications. documented in this encounter* CoomBronson parra PTA - 04/23/2019 4:00 PM EDT [facility] OUTPATIENT REHABILITATION DAILY TREATMENT NOTE Today's Date 04/23/2019 Patient Name: Elizabeth Jarvis Date of : 1995 Current Visit #: 3 Authorized Visits: 12 Case Name: low back pain History: Pre-Treatment Pain Scale: 1 Symptoms: stabilized Functional Diagnosis: SNOMED CT(R) 1. Lumbar back pain LOW BACK PAIN Clinical Information: Subjective: Pt states Not sore in the back just sore in the butt pt states LBP is a 1/10 today. Pt states has difficulty picking up 10 month son without increase in pain. Objective: Started with TM ambulation as a warm up. Increased time on TM this visit. Pt cont with core strengthening exercises per flow sheet for improvement of lumbar stabilization. Treatments: Physical Therapy Exercise Log - 04/23/19 1600 OTHER Notes Supervising PT Gilles Therapeutic Exercise (78907) Intervention Manual Lumbar PA mobs grade 2 8' Parameters treadmill walking (to start) 1.7 mph, 6' Intervention draw ins, 10x20 Parameters draw in + december, x10 Intervention SLR abduction 2x10 B LE Parameters clamshells YTB, 2x10 BLE Intervention Quadruped alt leg x10 B Parameters Quadruped alt arms x10 B PT Treatment Times Therex Total Time 30 Manual Therapy Total Time 8 Direct Treatment Time 38 Total Treatment Time 40 Goals: Physical Therapy Ortho Goals: 1. Pt will demonstrate improved FOTO outcome measure by at least 18 points indicating functional gains. 6 weeks. 2. Pt will demonstrate improved core strength allowing for ease of lifting / carrying her child. 6 weeks. 3. Pt will report decreased pain frequency and intensity by at least 50%. 6 weeks. IE date: 04/11/2019 Progress report due: Recert due: visit # 12 Patient Education: Quality of movement with patient demonstrated understanding. Post-Treatment Pain Scale: 2 Assessment: Patient had an expected response to treatment. Pt had good tolerance to grade 2 lumbar PA mobs this visit. Pt sensitive at L4-L region. Pt had good tolerance to progressed core stabilization exercises. Skilled Intervention demonstrated by modifications of treatment per exercise log including increased load and safety interventions per exercise log. Progress towards goals as expected. Plan for Next Visit: Treatment Visit with focus on increasing reps NV Bronson Woodward PTA STATE LICENSE, [id number] documented in this encounter* Kamala Kymberly Van, [employer] SALES REPRESENTATIVE - 08/09/2019 9:30 AM EDT OFFICE VISIT WELL FEMALE EXAM HPI Patient is a pleasant 24 [id number] P-1 female presenting to the office for her well female exam.She had no vaginal and or urinary complaints at this time. Gynecologic Exam The patient's pertinent negatives include no genital itching, genital lesions, genital odor, genital rash, missed menses, pelvic pain, vaginal bleeding or vaginal discharge. The patient is experiencing no pain. She is not . Pertinent negatives include no abdominal pain, back pain, constipation, diarrhea, dysuria, flank pain, frequency, hematuria, painful intercourse or urgency. She is sexually active. No, her partner does not have an STD. She uses a patch for contraception. OB History 1 Para 1 Term 1 AB Living 1 SAB TAB Ectopic Multiple Live Births 1 Menstrual History Menarche Age: 14 years Period Cycle (Days): 28 Period Duration (Days): 4 Period Pattern: Regular Menstrual Flow: Light Menstrual Control: Tampon Dysmenorrhea: (!) Mild Dysmenorrhea Symptoms: Cramping, Throbbing Sexual History Age of First Sexual Encounter: 16 years Sexual Assault: No Number of Partners in Last Year: 1 Sexually Transmitted Infection History: None Results of Last Sexually Transmitted Infection Testing: Not applicable The following portions of the patient's history were reviewed and updated as appropriate: allergies, current medications and problem list. Family History Problem Relation Age of Onset Other (back pain) Mother No Known Problems Father No Known Problems Sister No Known Problems Brother No Known Problems Son No Known Problems Paternal Aunt No Known Problems Paternal Uncle Heart disease Maternal Grandmother Diabetes Maternal Grandmother Hypertension Maternal Grandmother Hyperlipidemia Maternal Grandmother No Known Problems Sister No Known Problems Paternal Aunt No Known Problems Paternal Aunt Social History Socioeconomic History Marital status: Spouse name: Amrit Number of children: 1 Years of education: Not on file Highest education level: Associate degree: academic program Occupational History Not on file Social Needs Financial resource strain: Not hard at all Food insecurity: Worry: Never true Inability: Never true Transportation needs: Medical: No Non-medical: No Tobacco Use Smoking status: Never Smoker Smokeless tobacco: Never Used Substance and Sexual Activity Alcohol use: Never Frequency: Monthly or less Drug use: Never Sexual activity: Yes Partners: Male control/protection: Patch Lifestyle Physical activity: Days per week: 0 days Minutes per session: 0 min Stress: To some extent Relationships Social connections: Talks on phone: More than three times a week Gets together: More than three times a week Attends evangelical service: More than 4 times per year Active member of club or organization: Yes Attends meetings of clubs or organizations: More than 4 times per year Relationship status: Other Topics Concern Not on file Social History Narrative Not on file Past Surgical History: Procedure Laterality Date SECTION, LOW TRANSVERSE TONSILLECTOMY Allergies Allergen Reactions Milk GI Intolerance Latex Nystatin Hives Patient's Medications New Prescriptions No medications on file Previous Medications ONDANSETRON (ZOFRAN ODT) 4 MG DISINTEGRATING TABLET Dissolve 1 (one) tablet (4 mg total) on top of tongue every 8 (eight) hours as needed for nausea . Modified Medications Modified Medication Previous Medication XULANE 150-35 MCG/24 HR PATCH XULANE 150-35 mcg/[address] 1 (one) patch on the skin once a week . APPLY ONE PATCH TOPICALLY DIRECTED ONCE A WEEK Discontinued Medications No medications on file Review of Systems Review of Systems Constitutional: Positive for fatigue. Negative for activity change. Respiratory: Negative. Negative for chest tightness and shortness of breath. Cardiovascular: Negative for chest pain and palpitations. Gastrointestinal: Negative. Negative for abdominal pain, constipation and diarrhea. Genitourinary: Negative. Negative for dysuria, flank pain, frequency, hematuria, missed menses, pelvic pain, urgency and vaginal discharge. Musculoskeletal: Negative. Negative for back pain. Skin: Negative. Neurological: Negative for weakness. Psychiatric/Behavioral: Negative. Vitals: 08/09/19 0936 BP: 115/78 BP Location: Right arm Patient Position: Sitting BP Cuff Size: X-large Adult Pulse: 71 Resp: 18 Temp: 97.9 F (36.6 C) TempSrc: Temporal SpO2: 96% Weight: 94.5 kg (208 lb 5.8 oz) Height: 5' 7 Body mass index is 32.63 kg/m . Physical Exam Physical Exam Constitutional: She is oriented to person, place, and time. She appears well- developed and well-nourished. HENT: Head: Normocephalic and atraumatic. Eyes: Conjunctivae are normal. Neck: Normal range of motion. Cardiovascular: Normal rate. Pulmonary/Chest: Effort normal. No breast swelling, tenderness, discharge or bleeding. Abdominal: Soft. Genitourinary: Pelvic exam was performed with patient supine. No labial fusion. There is no rash, tenderness, lesion or injury on the right labia. There is no rash, tenderness, lesion or injury on the left labia. Uterus is not deviated, not enlarged, not fixed and not tender. Cervix exhibits no motion tenderness, no discharge and no friability. Right adnexum displays no mass, no tenderness and no fullness. Left adnexum displays no mass, no tenderness and nofullness. No vaginal discharge, erythema, tenderness or bleeding. No erythema, tenderness or bleeding in the vagina. No foreign body in the vagina. No signs of injury in the vagina. Musculoskeletal: Normal range of motion. Neurological: She is alert and oriented to person, place, and time. Skin: Skin is warm and dry. Assessment/Plan Problem List Items Addressed This Visit Other Well female exam with routine gynecological exam - Primary Everything looked normal, your PAP results will take 10-14 days to return. I will notify you of your results via your MyChart or the office will call your with your results. Relevant Medications XULANE 150-35 mcg/24 hr patch Other Relevant Orders Thinprep Pap Smear For any new medications prescribed today, patient was educated about indications for the medication, how to take the medication and potential side effects of the medications. documented in this encounter Assessments Diagnosis Diarrhea, unspecified type- Primary Hemorrhoids, unspecified hemorrhoid type Diagnosis Lumbar back pain- Primary Lumbago Diagnosis Well adult exam- Primary Routine general medical examination at a health care facility Vitamin D deficiency Screening for thyroid disorder Screening for lipid disorders Lumbar back pain Lumbago Vitamin B deficiency Unspecified vitamin B deficiency Diagnosis Lumbar back pain Lumbago Diagnosis Other chronic back pain- Primary Diagnosis Nausea and vomiting, intractability of vomiting not specified, unspecified vomiting type- Primary Diagnosis Acute right-sided low back pain with right-sided sciatica- Primary Diagnosis Exposure to blood or body fluid Diagnosis Abdominal pain, generalized Diagnosis Chronic diarrhea Diarrhea Irritable bowel syndrome with diarrhea Irritable bowel syndrome Diagnosis 39 weeks gestation of - Primary Post-op pain Other acute postoperative pain Diagnosis Obesity (BMI 30.0-34.9)- Primary Lumbar back pain Lumbago Diagnosis Lumbar back pain Lumbago Diagnosis Well female exam with routine gynecological exam- Primary Routine gynecological examination Reason for Referral Status Reason Specialty Diagnoses / Procedures Referred By Contact Referred To Contact Pending Review Specialty Services Required/Patien t's Best Interest Radiology Diagnoses Lumbar back pain Procedures MR Lumbar Spine Without Contrast Latoya Fontanez, [employer] SALES REPRESENTATIVE [address] [id number] Status Reason Specialty Diagnoses / Procedures Referred By Contact Referred To Contact Authorized Specialty Services Required/Patie nt's Best Interest Physical Therapy / Rehabilitation Diagnoses Lumbar back pain Kymberly Wray, [employer] SALES REPRESENTATIVE [address] [place], [place] [id number] [facility] [address] [place] [address] Status Reason Specialty Diagnoses / Procedures Referred By Contact Referred To Contact New Request Physical Medicin e & Rehabilitation Diagnoses Acute right-sided low back pain with right-sided sciatica Angus Christian MD [address] [id number] Lazarus Jay, DO [address] [place] [address] Status Reason Specialty Diagnoses / Procedures Referre d By Contact Referred To Contact Closed Radiology Diagnoses Abdominal pain, generalized Procedures US Abdomen Limited Study US Abdomen Complete Fernanda Aleman MD [address] [place], [place] [id number] Status Reason Specialty Diagnoses / Procedures Referred By Contact Referred To Contact Authorized Specialty Services Required/Patie nt's Best Interest Physical Therapy / Rehabilitation Diagnoses Obesity (BMI 30.0-34.9) Lumbar back pain Kymberly Wray, [employer] SALES REPRESENTATIVE [address] [place], [place] [id number] [facility] [address] [place] [address] Status Reason Specialty Diagnoses / Procedures Referred By Contact Referred To Contact Authorized Specialty Services Required/Patien t's Best Interest Dietitian/Nutri tionist / Nutrition Diagnoses Obesity (BMI 30.0-34.9) Kymberly Wray, [employer] SALES REPRESENTATIVE [address] [place] [address] Discharge Instructions * Attachments The following attachments cannot be sent through Care Everywhere. * Back Pain (Pakistani) documented in this encounter* Instructions* Jose Grimaldo PA-C - 07/12/2019 Take medication as prescribed. Follow-up with your primary care doctor within 1 to 3 days. If symptoms worsen or persist please present back to the ER. * Attachments The following attachments cannot be sent through Care Everywhere. * Nausea and Vomiting (Pakistani) documented in this encounter* Attachments The following attachments cannot be sent through Care Everywhere. * Back Pain (Pakistani) * Sciatica (Pakistani) * Sciatica: Exercises (Pakistani) documented in this encounter* Instructions* Jose Grimaldo PA-C - 12/25/2019 Please return appropriate paperwork to [employer]. Please follow-up with work health. If symptoms worsen or persist please present back to the ER. * Attachments The following attachments cannot be sent through Care Everywhere. * Exposure: Blood and Body Fluids (Pakistani) documented in this encounter* Discharge Instr - Other Orders* Elysia Gómez RN - 12/03/2020 10:54 AM EST A Guide to Caring For Yourself was given to and reviewed with patient. Post- Warning Signs literature was given to and reviewed with patient. Post- Pre-eclampsia literature was given to and reviewed with patient. documented in this encounter* Attachments The following attachments cannot be sent through Care Everywhere. * : Kick Counts (Pakistani) * : Week 37 (Pakistani) documented in this encounter Hospital Course * Alona Pritchett MD - 12/03/2020 5:42 AM EST DISCHARGE SUMMARY Patient: Elizabeth Jarvis Date of : 1995 Site: [facility] Family Provider: Fernanda Aleman MD Admit Date: 12/01/2020 Discharge Date/Time: 12/03/20 Disposition: Home Clinical Summary Hospital Course: Elizabeth Jarvis is a 25 y.o. female patient of Fernanda Aleman MD with a history of repeat Discharge Diagnoses: Term , repeat Surgeries: 12/01/20 SECTION WITH BILATERAL PARTIAL SALPINGECTOMY Consults: Procedures Inpatient consult to Anesthesiology Inpatient consult to [place] Allergies: Milk, Latex, and Nystatin Discharge Diet: Condition: Good Discharge Medications: Current Discharge Medication List START taking these medications Details HYDROcodone-acetaminophen (NORCO) 5-325 mg per tablet Take 1 (one) tablet by mouth every 4 (four) hours as needed for pain (Days supply per fill: 7) . Qty: 30 tablet, Refills: 0 Associated Diagnoses: Post-op pain ibuprofen (ADVIL,MOTRIN) 600 MG tablet Take 1 (one) tablet (600 mg total) by mouth every 6 (six) hours as needed for pain . Qty: 60 tablet, Refills: 1 CONTINUE these medications which have NOT CHANGED Details vitamin with Ca-Iron-FA 27-1 mg Tab Take 1 tablet by mouth daily . STOP taking these medications ondansetron (ZOFRAN ODT) 4 MG disintegrating tablet Comments: Reason for Stopping: Physician(s) Family Provider: Fernanda Aleman MD, Address: [address] [place] [address] [address] / [facility] [address] Follow Up: No follow-up provider specified. Additional Information: None3 Patient instructions, including activity, were given to the patient/family at discharge. Please seethe After Visit Summary in the electronic medical record for details. Time spent on discharge: < 30 minutes Completed by: Alona Pritchett MD on 12/03/20, 5:42 AM documented in this encounter Additional Source Comments INFORMATION SOURCE (unrecogn ized section and content) DATE CREATED AUTHOR 04/25/2018 [facility] DATE CREATED AUTHOR AUTHOR'S ORGANIZ ATION 08/09/2018 [facility] DATE CREATED AUTHOR AUTHOR'S ORGANIZ ATION 10/22/2018 [facility] DATE CREATED AUTHOR AUTHOR'S ORGANIZ ATION 05/22/2020 [facility] DATE CREATED AUTHOR AUTHOR'S ORGANIZ ATION 08/28/2020 [facility] DATE CREATED AUTHOR AUTHOR'S ORGANIZ ATION 09/29/2020 [facility] DATE CREATED AUTHOR AUTHOR'S ORGANIZ ATION 11/21/2021 [facility] DATE CREATED AUTHOR AUTHOR'S ORGANIZ ATION 09/17/2022 [facility] DATE CREATED AUTHOR AUTHOR'S ORGANIZ ATION 11/24/2022 [facility] DATE CREATED AUTHOR AUTHOR'S ORGANIZ ATION 03/04/2023 [facility] DATE CREATED AUTHOR AUTHOR'S ORGANIZ ATION 11/30/2023 [facility] DATE CREATED AUTHOR AUTHOR'S ORGANIZ ATION 08/07/2024 [facility] Reason for Visit (unrecogniz ed section and content) Reason Comments Rectal Bleeding x 4 months. Since pr egnancy. Blood is bright. No clots. Reason Comments Back Pain Reason Comments Annual Exam Well Adult.TDAP 05/17 . Last pap done August of last year. Would like to discuss weight loss. No recent labs completed. Status Reason Specialty Diagnoses / Procedures Referred By Contact Referred To Contact Authorized Specialty Services Required/Patie nt's Best Interest Physical Therapy / Rehabilitation Diagnoses Lumbar back pain Kymberly Wray, [employer] SALES REPRESENTATIVE [address] [id number] [facility] [place] [facility] [address] [place] [address] Reason Comments Physical Therapy Status Reason Specialty Diagnoses / Procedures Referred By Contact Referred To Contact Authorized Specialty Services Required/Patie lambert's Best Interest Physical Therapy / Rehabilitation Diagnoses Lumbar back pain Kymberly Wray, [employer] SALES REPRESENTATIVE [address] [place] [address] [facility] [place] [address] [place] [address] Reason Comments Back Pain Reason Comments Emesis Reason Comments ED Follow-up Reason Comments Back Pain pt sts has had low b ack pain for months now and yesterday it got worse Reason Comments Body Fluid Exposure Status Reason Specialty Diagnoses / Procedures Referre d By Contact Referred To Contact Closed Radiology Diagnoses Abdominal pain, generalized Procedures US Abdomen Limited Study US Abdomen Complete Fernanda Aleman MD [address] [place] [address] Reason Comments Diarrhea since October, anais verdin is currently Status Reason Specialty Diagnoses / Procedures Referred By Contact Referred To Contact Closed Gastroenterology Diagnoses Diarrhea, unspecified type Irritable bowel syndrome, unspecified type Fernanda Aleman MD [address] [place] [address] Delilah Carballo MD [address] [place] [address] Reason Comments Scheduled Induction Status Reason Specialty Diagnoses / Procedures Referre d By Contact Referred To Contact Diagnoses 39 weeks gestation of Repeat Procedures SECTION WITH BILATERAL PARTIAL SALPINGECTOMY Reason Comments Discussion discuss obesity Reason Comments Gynecologic Exam pap due Reason Comments Contractions Reason Comments Other Possible trush, noti won this morning Jason Edwards MD - 05/13/2019 3:53 PM Zoe Sadler RN - 05/13/2019 2:59 PM Piper Arthur RN - 07/12/2019 11:29 AM Piper Arthur RN - 07/12/2019 11:27 AM EDT ED Notes (unrecognized secti on and content) ED PROVIDER NOTE [facility] EMERGENCY DEPARTMENT NAME: Elizabeth Jarvis AGE: 23 y.o. : 1995 VISIT DATE: 05/13/2019 CSN: [id number] PCP: Kymberly Wray CNP Chief Complaint Patient presents with Back Pain Patient presents with complaint of least 2-1/2 years of back pain. Recently the past few days the pain got more severe. Patient denies weakness denies numbness or tingling. Patient is complains of pain. Patient denies dizziness. Patient denies bowel bladder dysfunction. Patient states that she saw her primary care physician who is unable to perform cortisone injections without an MRI. Patient will need prior authorization to get MRI performed. Pain is more pronounced with movement patient did get some relief with rest. Past Medical History: Diagnosis Date Injury of back Obesity Past Surgical History: Procedure Laterality Date SECTION, LOW TRANSVERSE TONSILLECTOMY Family History Problem Relation Age of Onset Other (back pain) Mother No Known Problems Father No Known Problems Sister No Known Problems Brother No Known Problems Son No Known Problems Paternal Aunt No Known Problems Paternal Uncle Heart disease Maternal Grandmother Diabetes Maternal Grandmother Hypertension Maternal Grandmother Hyperlipidemia Maternal Grandmother No Known Problems Sister No Known Problems Paternal Aunt No Known Problems Paternal Aunt Social History Socioeconomic History Marital status: Spouse name: Amrit Number of children: 1 Years of education: Not on file Highest education level: Associate degree: academic program Occupational History Not on file Social Needs Financial resource strain: Not hard at all Food insecurity: Worry: Never true Inability: Never true Transportation needs: Medical: No Non-medical: No Tobacco Use Smoking status: Never Smoker Smokeless tobacco: Never Used Substance and Sexual Activity Alcohol use: Yes Frequency: Monthly or less Drug use: Never Sexual activity: Yes Partners: Male Lifestyle Physical activity: Days per week: 0 days Minutes per session: 0 min Stress: To some extent Relationships Social connections: Talks on phone: More than three times a week Gets together: More than three times a week Attends evangelical service: More than 4 times per year Active member of club or organization: Yes Attends meetings of clubs or organizations: More than 4 times per year Relationship status: Other Topics Concern Not on file Social History Narrative Not on file No current outpatient medications on file prior to encounter. Allergies Allergen Reactions Milk GI Intolerance Nystatin Hives Review of Systems Musculoskeletal: Positive for back pain. All other systems reviewed and are negative. Patient Vitals for the past 24 hrs: BP Temp Temp src Resp SpO2 05/13/19 1448 124/66 98.2 F (36.8 C) Oral 16 99 % Physical Exam Constitutional: She is oriented to person, place, and time. She appears well-developed and well-nourished. HENT: Head: Normocephalic and atraumatic. Right Ear: Tympanic membrane normal. Left Ear: Tympanic membrane normal. Mouth/Throat: Uvula is midline, oropharynx is clear and moist and mucous membranes are normal. Tonsils are 0 on the right. Tonsils are 0 on the left. Eyes: EOM are normal. Pupils are equal, round, and reactive to light. Neck: Normal range of motion. Neck supple. Cardiovascular: Normal rate and regular rhythm. Pulmonary/Chest: Effort normal and breath sounds normal. Abdominal: Soft. Bowel sounds are normal. Musculoskeletal: Normal range of motion. She exhibits tenderness. Neurological: She is alert and oriented to person, place, and time. Skin: Skin is warm and dry. Psychiatric: She has a normal mood and affect. Vitals reviewed. Laboratory & Radiographic Imaging (if done): Results for orders placed or performed during the hospital encounter of 05/13/19 Urinalysis Result Value Ref Range Color, Urine Yellow Colorless, Yellow Clarity, Urine Hazy (A) Clear Specific Jackson 1.011 1.005 - 1.025 pH, Urine 6.0 5.0 - 7.0 Protein, Urine Negative Negative mg/dL Glucose, Urine Negative Negative mg/dL Ketones, Urine Negative Negative mg/dL Bilirubin, Urine Negative Negative Urobilinogen, Urine <2.0 <2.0 mg/dL Blood, Urine Negative Negative Nitrite, Urine Negative Negative Leukocyte Esterase, Urine Large (A) Negative WBCs, Urine 75 (H) 0 - 5 /hpf RBCs, Urine 1 0 - 3 /hpf Bacteria, Urine Many (A) None Seen /hpf Squamous Epithelial 6 (H) 0 - 4 /hpf Mucus, Urine Rare None Seen, Rare /lpf Urine Result Value Ref Range Beta-hCG, Ur, Qual Negative Negative CT Lumbar Spine Without Contrast Final Result Degenerative disc disease at L5-S1. Nonobstructing left renal calculus. No fracture or spondylolisthesis. Workstation ID: [id number] Procedures MDM Number of Diagnoses or Management Options Diagnosis management comments: Cauda equina, cord syndrome, degenerative disc disease, urinary tract infection The patient has been informed that they may have pre-hypertension or hypertension based on a blood pressure reading in the Emergency Department. I recommend that the patient call the primary care provider listed on their discharge instructions or a physician of their choice as soon as possible to arrange follow-up in the next 4 weeks for further evaluation of possible pre-hypertension or hypertension. . Clinical Impression: SNOMED CT(R) 1. Other chronic back pain CHRONIC BACK PAIN CT scan was fairly unremarkable. Patient has no signs of cauda equina or cord syndrome. Patient is able to ambulate. Will try a course of topical diclofenac with instruction to follow-up with her primary care physician. ED Disposition ED Disposition Condition Comment Discharge Stable Elizabeth Jarvis discharged to home/self care in stable condition. Follow-up Information 1. Kymberly Wray CNP. Specialty: Nurse Practitioner Why: As needed, If symptoms worsen [address] [id number] Contact information for after-discharge care Follow-up information has not been specified. New Prescriptions diclofenac sodium 1 % Gel Apply 2 (two) g topically 4 (four) times a day . Jason Edwards MD 05/13/19 4781 Pt. Reports that she has a few bad discs in her back. Pt. States that she thinks that she twisted her back last night. Took tylenol, motrin, ice and heat, and the pain isn't getting better. documented in this encounter Pt instructed to take zofran for nausea, pt verbalizes understanding and follow up with PCP as needed PT REPORTS DECREASED NAUSEA ED PROVIDER NOTE [facility] EMERGENCY DEPARTMENT NAME: Elizabeth Jarvis AGE: 24 y.o. : 1995 VISIT DATE: 07/12/2019 CSN: [id number] PCP: Kymberly Wray CNP Chief Complaint Patient presents with Emesis Patient presents to the emergency department for a complaint of nausea and vomiting. Patient states that she has had nonstop vomiting since 530 this morning. States she is vomiting at least every 15 minutes. States she does have some cramping in her stomach but it is only when she is vomiting. She denies any fever or chills. States that she does not believe she is . Patient denies significant past medical history. Denies all other symptoms at this time. Past Medical History: Diagnosis Date Injury of back Obesity Past Surgical History: Procedure Laterality Date SECTION, LOW TRANSVERSE TONSILLECTOMY Family History Problem Relation Age of Onset Other (back pain) Mother No Known Problems Father No Known Problems Sister No Known Problems Brother No Known Problems Son No Known Problems Paternal Aunt No Known Problems Paternal Uncle Heart disease Maternal Grandmother Diabetes Maternal Grandmother Hypertension Maternal Grandmother Hyperlipidemia Maternal Grandmother No Known Problems Sister No Known Problems Paternal Aunt No Known Problems Paternal Aunt Social History Socioeconomic History Marital status: Spouse name: Amrit Number of children: 1 Years of education: Not on file Highest education level: Associate degree: academic program Occupational History Not on file Social Needs Financial resource strain: Not hard at all Food insecurity: Worry: Never true Inability: Never true Transportation needs: Medical: No Non-medical: No Tobacco Use Smoking status: Never Smoker Smokeless tobacco: Never Used Substance and Sexual Activity Alcohol use: Never Frequency: Monthly or less Drug use: Never Sexual activity: Yes Partners: Male control/protection: Patch Lifestyle Physical activity: Days per week: 0 days Minutes per session: 0 min Stress: To some extent Relationships Social connections: Talks on phone: More than three times a week Gets together: More than three times a week Attends evangelical service: More than 4 times per year Active member of club or organization: Yes Attends meetings of clubs or organizations: More than 4 times per year Relationship status: Other Topics Concern Not on file Social History Narrative Not on file Previous Medications Medication Sig XULANE 150-35 mcg/24 hr patch APPLY ONE PATCH TOPICALLY DIRECTED ONCE A WEEK Allergies Allergen Reactions Milk GI Intolerance Latex Nystatin Hives Review of Systems Constitutional: Negative for activity change, chills, fatigue and fever. HENT: Negative for congestion, ear pain, hearing loss, postnasal drip, rhinorrhea, sore throat and trouble swallowing. Eyes: Negative for photophobia, pain, redness and visual disturbance. Respiratory: Negative for cough, chest tightness, shortness of breath and wheezing. Cardiovascular: Negative for chest pain, palpitations and leg swelling. Gastrointestinal: Positive for nausea and vomiting. Negative for abdominal pain, constipation and diarrhea. Genitourinary: Negative for difficulty urinating, dysuria, hematuria and urgency. Musculoskeletal: Negative for arthralgias, back pain, myalgias, neck pain and neck stiffness. Skin: Negative for color change and rash. Neurological: Negative for dizziness, speech difficulty, weakness, numbness and headaches. Psychiatric/Behavioral: Negative for agitation and suicidal ideas. The patient is not nervous/anxious. Patient Vitals for the past 24 hrs: BP Temp Temp src Pulse Resp SpO2 Height Weight 07/12/19 1006 5' 7 95.3 kg (210 lb) 07/12/19 1000 114/72 98.5 F (36.9 C) Oral 78 16 98 % Physical Exam Vitals signs and nursing note reviewed. Constitutional: General: She is in acute distress. Appearance: She is well-developed and normal weight. She is not toxic-appearing. HENT: Head: Normocephalic and atraumatic. Eyes: Extraocular Movements: Extraocular movements intact. Conjunctiva/sclera: Conjunctivae normal. Neck: Musculoskeletal: Normal range of motion and neck supple. Cardiovascular: Rate and Rhythm: Normal rate and regular rhythm. Heart sounds: Normal heart sounds. Pulmonary: Effort: Pulmonary effort is normal. Breath sounds: Normal breath sounds. Abdominal: General: Bowel sounds are normal. There is no distension. Palpations: Abdomen is soft. Tenderness: There is no tenderness. Musculoskeletal: Normal range of motion. General: No tenderness or deformity. Skin: General: Skin is warm and dry. Capillary Refill: Capillary refill takes less than 2 seconds. Findings: No rash. Neurological: Mental Status: She is alert and oriented to person, place, and time. Psychiatric: Mood and Affect: Mood normal. Laboratory & Radiographic Imaging (if done): Results for orders placed or performed during the hospital encounter of 07/12/19 Chem 7 Result Value Ref Range Sodium 138 135 - 145 mmol/L Potassium 4.0 3.5 - 5.1 mmol/L Chloride 108 98 - 108 mmol/L Bicarbonate 23 21 - 32 mmol/L Creatinine 0.81 0.40 - 1.10 mg/dL Glucose 100 (H) 65 - 99 mg/dL BUN 14 8 - 25 mg/dL eGFR 103 >=60 mL/min/1.73 m2 BUN/Creatinine Ratio 17.3 10.0 - 20.0 Anion Gap 11 10 - 20 mmol/L HCG (QUALITATIVE) Result Value Ref Range Beta-hCG Qual Negative Negative No orders to display Procedures MDM Number of Diagnoses or Management Options Diagnosis management comments: Patient states abdominal cramping has resolved with medication given here. States that vomiting has also resolved. She is feeling much better. Will be sent home with similar medication asked follow-up with her primary care doctor. No acute findings on lab work. Amount and/or Complexity of Data Reviewed Clinical lab tests: ordered and reviewed Risk of Complications, Morbidity, and/or Mortality Presenting problems: moderate Diagnostic procedures: moderate Management options: low Patient Progress Patient progress: stable . . Clinical Impression: 1. Nausea and vomiting, intractability of vomiting not specified, unspecified vomiting type ED Disposition ED Disposition Condition Comment Discharge Stable Elizabeth Jarvis discharged to home/self care in stable condition. Follow-up Information 1. Kymberly Wray CNP. Specialty: Nurse Practitioner [address] [place] [address] Contact information for after-discharge care Follow-up information has not been specified. Jose Grimaldo PA-C 07/12/19 1117 PT STATES VOMITING SINCE 0500 THIS MORNING, STATES EVERY 15 MIN, UNABLE TO KEEP ANYTHING DOWN, STATES DOES NOT THINK IS , STATES WENT TO WORK BUT WAS SENT HOME, NO DIARRHEA, NO FEVER OR RECENT ILLNESS JOSE CORNELIUS AT BEDSIDE TO EVALUATE PT documented in this encounter Lab present to draw patient's blood Needle stick injury to L ring finger. ED PROVIDER NOTE [facility] EMERGENCY DEPARTMENT NAME: Elizabeth Jarvis AGE: 24 y.o. : 1995 VISIT DATE: 12/25/2019 CSN: [id number] PCP: Kymberly Wray CNP Chief Complaint Patient presents with Body Fluid Exposure Patient presents to the ER for body fluid exposure. 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 States that she poked her finger with a lancet when checking a blood glucose. Left palm R ring finger affected. Patient denies all other complaints or concerns at this time. Feeling appropriate blood work. States it is worse patient is still available in the hospital for rapid HIV. Lab will be contacted for this. Past Medical History: Diagnosis Date Injury of back Obesity Past Surgical History: Procedure Laterality Date SECTION, LOW TRANSVERSE TONSILLECTOMY Family History Problem Relation Age of Onset Other (back pain) Mother No Known Problems Father No Known Problems Sister No Known Problems Brother No Known Problems Son No Known Problems Paternal Aunt No Known Problems Paternal Uncle Heart disease Maternal Grandmother Diabetes Maternal Grandmother Hypertension Maternal Grandmother Hyperlipidemia Maternal Grandmother No Known Problems Sister No Known Problems Paternal Aunt No Known Problems Paternal Aunt Social History Socioeconomic History Marital status: Spouse name: Amrit Number of children: 1 Years of education: Not on file Highest education level: Associate degree: academic program Occupational History Not on file Social Needs Financial resource strain: Not hard at all Food insecurity Worry: Never true Inability: Never true Transportation needs Medical: No Non-medical: No Tobacco Use Smoking status: Never Smoker Smokeless tobacco: Never Used Substance and Sexual Activity Alcohol use: Never Frequency: Monthly or less Drug use: Never Sexual activity: Yes Partners: Male control/protection: Patch Lifestyle Physical activity Days per week: 0 days Minutes per session: 0 min Stress: To some extent Relationships Social connections Talks on phone: More than three times a week Gets together: More than three times a week Attends evangelical service: More than 4 times per year Active member of club or organization: Yes Attends meetings of clubs or organizations: More than 4 times per year Relationship status: Other Topics Concern Not on file Social History Narrative Not on file Previous Medications Medication Sig ondansetron (ZOFRAN ODT) 4 MG disintegrating tablet Dissolve 1 (one) tablet (4 mg total) on top of tongue every 8 (eight) hours as needed for nausea . XULANE 150-35 mcg/[address] 1 (one) patch on the skin once a week . Allergies Allergen Reactions Milk GI Intolerance Latex Nystatin Hives Review of Systems Constitutional: Negative for activity change, chills, fatigue and fever. HENT: Negative for congestion, ear pain, hearing loss, postnasal drip, rhinorrhea, sore throat and trouble swallowing. Eyes: Negative for photophobia, pain, redness and visual disturbance. Respiratory: Negative for cough, chest tightness, shortness of breath and wheezing. Cardiovascular: Negative for chest pain, palpitations and leg swelling. Gastrointestinal: Negative for abdominal pain, constipation, diarrhea, nausea and vomiting. Genitourinary: Negative for difficulty urinating, dysuria, hematuria and urgency. Musculoskeletal: Negative for arthralgias, back pain, myalgias, neck pain and neck stiffness. Skin: Positive for wound. Negative for color change and rash. Neurological: Negative for dizziness, speech difficulty, weakness, numbness and headaches. Psychiatric/Behavioral: Negative for agitation and suicidal ideas. The patient is not nervous/anxious. Patient Vitals for the past 24 hrs: BP Temp Temp src Pulse Resp SpO2 Height Weight 12/25/19 1244 135/83 97.2 F (36.2 C) Oral (!) 101 18 97 % 5' 7 83.5 kg (184 lb) Physical Exam Vitals signs and nursing note reviewed. Constitutional: General: She is not in acute distress. Appearance: She is well-developed and normal weight. She is not toxic-appearing. HENT: Head: Normocephalic and atraumatic. Right Ear: External ear normal. Left Ear: External ear normal. Nose: Nose normal. Mouth/Throat: Mouth: Mucous membranes are moist. Eyes: Extraocular Movements: Extraocular movements intact. Conjunctiva/sclera: Conjunctivae normal. Neck: Musculoskeletal: Normal range of motion. Cardiovascular: Rate and Rhythm: Normal rate and regular rhythm. Pulses: Normal pulses. Heart sounds: Normal heart sounds. Pulmonary: Effort: Pulmonary effort is normal. Breath sounds: Normal breath sounds. Musculoskeletal: Normal range of motion. General: No deformity. Skin: General: Skin is warm and dry. Capillary Refill: Capillary refill takes less than 2 seconds. Findings: No rash. Comments: Small puncture wound noted to the distal palmar aspect of the left second digit without any bleeding noted Neurological: General: No focal deficit present. Mental Status: She is alert and oriented to person, place, and time. Psychiatric: Mood and Affect: Mood normal. Behavior: Behavior normal. Laboratory & Radiographic Imaging (if done): No results found for this visit on 12/25/19. No orders to display Procedures MDM Number of Diagnoses or Management Options Diagnosis management comments: Patient feeling appropriate paper. Lab work contacted for patient in for rapid HIV of source patient. Risk of Complications, Morbidity, and/or Mortality Presenting problems: low Diagnostic procedures: low Management options: low Patient Progress Patient progress: stable The patient has been informed that they may have pre-hypertension or hypertension based on a blood pressure reading in the Emergency Department. I recommend that the patient call the primary care provider listed on their discharge instructions or a physician of their choice as soon as possible to arrange follow-up in the next 4 weeks for further evaluation of possible pre-hypertension or hypertension. . Clinical Impression: 1. Exposure to blood or body fluid ED Disposition ED Disposition Condition Comment Discharge Stable Elizabeth Jarvis discharged to home/self care in stable condition. Follow-up Information 1. [facility]. [address] [place] [address] [phone] Contact information for after-discharge care Follow-up information has not been specified. Jose Grimaldo PA-C 12/25/19 1245 documented in this encounter ED Attestation Note - Willian Pickard MD - 12/25/2019 12:39 PM ESTQudarius Note - Elysia Gómez RN - 12/03/2020 11:37 AM Tae Note - Elsyia Gómez RN - 12/03/2020 11:25 AM EST Miscellaneous Notes (unrecog nized section and content) ED Attestation: I did not see this patient. However, I was physically present in the department and available for consult in the ED for this patient, if the Advanced Practice Provider (CHILO) needed any assistance. The CHILO evaluated the patient independently for a complaint of No chief complaint on file., and completed their own examination, documentation, and discharge. documented in this encounter Ambulatory to car. Patient discharged to home with babe Reviewed discharge instructions with patient. Patient denies questions. Patient preparing babe for discharge Plan of care reviewed with patient. Patient afebrile without signs and symptoms of infection. Pain well controlled with Vicodin and Motrin. Discharge education complete. Patient caring for self and baby independently. Patient to be discharged to home with baby today. POC reviewed. Pain controlled by PO medications. No s/s of incisional infection. Pt demonstrates proper knowledge of self and . Continuing education with pt and support person. Plan of care reviewed and updated Review and continue POC. . and self teaching ongoing. PO motrin and tylenol effective for pain. No signs or symptoms of infection, afebrile. Progressing well toward discharge home. Date of Service: 12/01/2020 Preoperative diagnosis: Term , previous cesareab Postoperative diagnosis: Same Procedure: Repeat Low Transverse Section Surgeon: Alona Pritchett MD Anesthesia: Spinal Complications: None Estimated blood loss: 600 cc Findings: The was delivered from the vertex presentation and the placenta was removed intact with a three-vessel cord. Tubes and ovaries are unremarkable. What was done: The patient was seen in the Holding Room. Her history and physical was reviewed for any changes, and risks, benefits, complications, treatment options, and expected outcomes were discussed with the patient. The patient concurred with the proposed plan, reaffirming informed consent. The site of surgery properly noted/marked. The patient was taken to the operating room, identified as Elizabeth Jarvis and the procedure verified. The patient was prepped and draped in the usual fashion at which a Pfannenstiel incision was made and carried into the abdominal cavity. The bladder flap was formed after which the hysterotomy incision was made using a knife blade and carried out bilaterally using finger pressure. The fetus was then delivered through the vertex presentation with the aid of the vacuum extractor, oropharynx and nares were suctioned, cord was clamped and cut, and the was passed to nursery personnel and pediatrics in attendance. The placenta is then removed by manual extraction and passed off. The hysterotomy incision is closed using a running locking single layer closure of #1 chromic starting in each corner and meeting in the midline. Hemostasis is obtained after which all packs and retractors were removed from the field and the area under the fascia is again checked for hemostasis which is present. Fascia was then closed using a running closure of #1 Vicryl starting in one corner and ending in the other. Subcutaneous tissue was checked for hemostasis after which the skin is closed using a running subcuticular suture of 3-0 Vicryl starting in one corner and ending in the other. The patient was then taken to the recovery room in good condition having tolerated the procedure well. POC explained Problem: Actual or potential alteration in health Goal: Absence of healthcare acquired conditions Outcome: Partially Met Goal: Knowledge of Interdisciplinary Plan of Care Outcome: Partially Met Goal: Knowledge of Enviroment Outcome: Partially Met Problem: Fluid Volume Imbalance, Risk of Goal: Absence of imbalanced fluid volume signs and symptoms Outcome: Partially Met Goal: Balanced intake and output Outcome: Partially Met Problem: Infection - Risk of, Surgical Site Infection Goal: Absence of infection signs and symptoms Outcome: Partially Met Problem: Pain Goal: Manage acute pain Outcome: Partially Met Goal: Manage chronic pain Outcome: Partially Met Goal: Reduced pain sensation Outcome: Partially Met Goal: Achievement of comfort function goal Outcome: Partially Met Problem: Venous Thromboembolism, Risk of Goal: Absence of venous thromboembolism Outcome: Partially Met Problem: Plan for Discharge Goal: Knowledge of discharge plan and instructions Outcome: Partially Met documented in this encounter Associated Problem(s): Obesity (BMI 30.0-34.9) PT and the director [facility] will call you to schedule your appointments I want you to maintain a 1200 calorie low carb/high protein until you follow up with the director [facility]. Walking 30 minutes 6 days per week until you see physical therapy. Have your lab work completed within the next 2 week. I will see you back in 2 weeks. documented in this encounter Associated Problem(s): Well female exam with routine gynecological exam (Resolved 08/12/2019) Everything looked normal, your PAP results will take 10-14 days to return. I will notify you of your results via your MyChart or the office will call your with your results. documented in this encounter Alona Pritchett MD - 12/01/2020 7:38 AM ESTKarla Kendall MD - 11/14/2020 3:48 PM EST H&P Notes (unrecognized sect ion and content) INTERVAL HISTORY AND PHYSICAL Patient Name: Elizabeth Jarvis Admit Date: [id number] MR #: [id number] : 1995 The H&P has been reviewed and the patient has been examined. I concur with the findings of the H&P. There are no significant changes. It is appropriate to proceed with the planned procedure. Alona Pritchett MD 12/01/2020 7:38 AM Observation Note Patient Identification: Name: Elizabeth JarvisAge: 25 y.o.Sex: femaleDOB: 1995MRN: [id number] Chief Complaint: Chief Complaint Patient presents with Contractions History of Present Illness: [id number] @ 37+ weeks wt c/o vaginal pressure. Not in labor. NST reative Problem List: Patient Active Problem List Diagnosis Date Noted Obesity (BMI 30.0-34.9) 04/04/2019 Lumbar back pain 04/04/2019 Past Medical History: Past Medical History: Diagnosis Date Injury of back Obesity Past Surgical History: Past Surgical History: Procedure Laterality Date SECTION, LOW TRANSVERSE TONSILLECTOMY Home Meds: No medications prior to admission. Current Meds: No current facility-administered medications for this encounter. Current Outpatient Medications Medication Sig Dispense Refill vitamin with Ca-Iron-FA 27-1 mg Tab Take 1 tablet by mouth daily . ondansetron (ZOFRAN ODT) 4 MG disintegrating tablet Dissolve 1 (one) tablet (4 mg total) on top of tongue every 8 (eight) hours as needed for nausea . 15 tablet 0 Allergies: Allergies Allergen Reactions Milk GI Intolerance Latex Nystatin Hives Immunizations: Immunization History Administered Date(s) Administered DTaP, Unspecified [birth year], 01/07/1998, 01/02/1999, 11/14/2002 Hepatitis B [birth year], 07/14/1998 Hib (PRP-OMP) [birth year], 01/07/1998 INFLUENZA IIV4 6MO OR > FLUARIX/FLUZONE/AFLURIA 99014 07/31/2018 Influenza, Injectable, Quadrivalent, Preservative Free 07/19/2017, 07/31/2018 MMR 07/14/1998, 11/14/2002 Meningococcal MCV4P 08/26/2010 OPV 1995, 1995, 04/07/1998, 11/14/2002 Tdap 08/26/2010, 05/26/2018 Varicella (Varivax) 11/14/2002 Social History: Social History Tobacco Use Smoking status: Never Smoker Smokeless tobacco: Never Used Substance Use Topics Alcohol use: Never Frequency: Monthly or less Family History: Family History Problem Relation Age of Onset Other (back pain) Mother No Known Problems Father No Known Problems Sister No Known Problems Brother No Known Problems Son No Known Problems Paternal Aunt No Known Problems Paternal Uncle Heart disease Maternal Grandmother Diabetes Maternal Grandmother Hypertension Maternal Grandmother Hyperlipidemia Maternal Grandmother No Known Problems Sister No Known Problems Paternal Aunt No Known Problems Paternal Aunt Objective: tMax 24 hrs: Temp (24hrs), Av.1 F (36.7 C), Min:98.1 F (36.7 C), Max:98.1 F (36.7 C) Vitals Ranges: Temp: [98.1 F (36.7 C)] 98.1 F (36.7 C) Heart Rate: [95] 95 Resp: [16] 16 BP: (132)/(77) 132/77Intake and Output Last 3 Shifts: No intake/output data recorded. Assessment: Active Problems: * No active hospital problems. * 37+ weeks. NST reactive. Not in labor Plan: Discharge to home. Keep scheduled OB appt. Agree with RN plan of care Karla Kendall11/15/2020 documented in this encounter Care Teams (unrecognized sec tion and content) Machine [employer] Relationship Specialty Start Date End Date Fernanda Aleman MD [address] [place] [address] PCP - General Internal Medicine 09/28/23 FOR RECORDS PERTAINING TO PATIENTS WHO ARE OR HAVE BEEN ENROLLED IN A CHEMICAL DEPENDENCY/SUBSTANCEABUSE PROGRAM, SOME INFORMATION MAY BE OMITTED. This clinical summary was aggregated from multiple sources. Caution should be exercised in using it in the provision of clinical care. This summary normalizes information from multiple sources, and as a consequence, information in this document may materially change the coding, format and clinical context of patient data. In addition, data may be omitted in some cases. CLINICAL DECISIONS SHOULD BE BASED ON THE PRIMARY CLINICAL RECORDS. [employer] provides no warranty or guarantee of the accuracy or completeness of information in this document.
[2025-04-18 20:53] LABS: Color, Urine Straw (Yellow); Glucose, Dipstick Normal (Normal); Ketone-Dipstick Negative (Negative); Leukocyte Esterase-Dipstick 25 /ul (Negative); Nitrite-Dipstick Negative (Negative); Occult Blood-Urine 250 /ul (Negative); Protein-Dipstick Negative (Negative); Urine Bilirubin Dipstick Negative (Negative); Urine Clarity Clear (Clear); Urine Urobilinogen Normal (Normal); Urine pH 6.5 (5.0 - 8.0)
[2025-04-18 20:57] LABS: hCG Titer Quant., Serum 163 mIU/mL (<9 non-preg)
[2025-04-18 21:40] LABS: Bacteria 1+ /hpf (None Seen); Red Blood Cells-Urine 10-25 SEEN /hpf (0-5); Squamous Epithelial Cells - UA 0-5 SEEN /hpf (5-10); White Blood Cells 5-10 SEEN /hpf (0-5)
[2025-04-18 21:45] VITALS: BP 113/56; PULSE 62; RESP 16; O2SAT 100
[2025-04-18 23:00] VITALS: BP 120/76; PULSE 55; RESP 16; O2SAT 98
[2025-04-18 23:42] VITALS: BP 117/77; PULSE 68; RESP 16; TEMP 36.4; O2SAT 100
== END 2025-04-18 23:45 | disposition home or self-care (01) ==
PROVIDERS: Physician Assistant; Emergency Provider Surgery; Visit Provider Surgery
DX: O03.9 Complete or unspecified spontaneous abortion without complication (principal); O23.41 Unspecified infection of urinary tract in pregnancy, first trimester; R11.0 Nausea; Z3A.01 Less than 8 weeks gestation of pregnancy
CPT/HCPCS: 76817; 81001; 84702; 85025; 87086; 87088; 99282; A4216